=== PATIENT | male | born 1960 | race Caucasian/White ===

== ENCOUNTER 2017-05-17 01:23 | Emergency (ER) | payer OTHER ==
[~2017-05-17] VITALS: Ht 195.6 cm; Wt 99.3 kg
[2017-05-17] MEDS ORDERED: IBUPROFEN 600 MG TABLET. PO ONE (01:45)
[2017-05-17] MEDS ORDERED: DIPHTH,PERTUSS(ACELL),TET TOX 0.5 ML DISP.SYRIN. VAX IM ONE (01:45)
[2017-05-17] MEDS ORDERED: HYDROcodone/APAP 5/325MG 1 TAB TABLET PO ONE (01:45)
[2017-05-17] MEDS ORDERED: NEOMY/BACITR/POLYMYXIN OINT PACKET. TP ONE (02:30)
[2017-05-17] MEDS ORDERED: IBUP-1007 PO (02:30)
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
[2017-05-17 02:40] VITALS: BP 169/91
--- NOTE | 2017-05-17 07:32 | RAD ---
Indication injury, pain. AP and lateral views of the right forearm were obtained. No bony abnormality is seen
--- NOTE | 2017-05-17 07:36 | RAD ---
Indication injury, pain. Frontal and lateral views of the chest were obtained. Note is made of a previous examination of the chest 06/14/2014. The heart and pulmonary vessels are within normal limits. A focal infiltrate is not seen. Significant pleural fluid is not present and there is no pneumothorax. Calcified granulomas are noted. Visualized bony structures appear grossly intact. IMPRESSION: No acute or focal process is seen in the chest
--- NOTE | 2017-05-17 07:42 | RAD ---
Indication injury, pain. AP oblique and lateral views were obtained targeted to the right toes. There are degenerative changes at the first metatarsal phalangeal joint. No acute bony finding is seen involving the toes
--- NOTE | 2017-05-17 07:42 | RAD ---
Indication injury, pain. 2 views of the left clavicle were obtained. No bony abnormality is seen
== END 2017-05-17 02:40 | disposition home or self-care (01) ==
LOC: ER 01:23 → EEVIPCON 01:23 → ER 02:40
DX: S91.111A Laceration without foreign body of right great toe without damage to nail, initial encounter (principal); S50.11XA Contusion of right forearm, initial encounter; S41.032A Puncture wound without foreign body of left shoulder, initial encounter; S20.319A Abrasion of unspecified front wall of thorax, initial encounter; S30.811A Abrasion of abdominal wall, initial encounter; Y04.0XXA Assault by unarmed brawl or fight, initial encounter; Y93.89 Activity, other specified; Y92.89 Other specified places as the place of occurrence of the external cause; Y99.8 Other external cause status
CPT/HCPCS: 71020; 73000; 73090; 73660; 90471; 90715; 99284-25

== ENCOUNTER 2019-01-31 19:39 | Inpatient (IN) | payer OTHER, SELFPAY ==
[~2019-01-31] VITALS: Ht 195.6 cm; Wt 107.5 kg
[~2019-01-31 19:39] MED LIST: IBUP-1007 PO
[2019-01-31] MEDS ORDERED: IV NORMAL SALINE 1000ML BAG 1,000 ML IV SCH (20:12)
[2019-01-31 20:33] LABS: BILIRUBIN,URINE SMALL (NEG); CLARITY,URINE CLEAR; COLOR,URINE AMBER; NITRITE,URINE NEGATIVE (NEG); PROTEIN,URINE 100 mg/dL (NEG-TRACE)
[2019-01-31 20:39] LABS: GRANULAR CASTS,URINE OCCASIONAL /HPF; HYALINE CASTS, URINE FEW /HPF
[2019-01-31 20:40] LABS: AMPHETAMINE/METHAMPHETAMINE POS (NEG); BACTERIA,URINE 0 /HPF (0-FEW); BARBITURATES NEG (NEG); BENZODIAZEPINES NEG (NEG); CANNABINOIDS NEG (NEG); COCAINE NEG (NEG); METHADONE NEG (NEG); OPIATES NEG (NEG); PHENCYCLIDINE NEG (NEG)
[2019-01-31 20:43] LABS: BASO # 0.1 x10^3/uL (0.0-0.2); BASO % 1 % (0-3); EOS # 0.1 x10^3/uL (0.0-0.7); EOS % 1 % (0-3); HEMOGLOBIN 13.5 g/dL (13.0-17.5); LYMPH # 1.2 x10^3/uL (1.0-4.8); LYMPH % 8 % (24-48); MEAN CORPUSCULAR HEMOGLOBIN 28 pg (25-35); MEAN CORPUSCULAR HGB CONC 33 g/dL (31-37); MEAN CORPUSCULAR VOLUME 84 fL (79-100); MONO # 1.5 x10^3/uL (0.0-1.1); MONO % 10 % (0-9); NEUT # 12.2 x10^3uL (1.8-7.7); NEUT % 81 % (31-73); PLATELET COUNT 245 x10^3/uL (140-400); RED BLOOD COUNT 4.87 x10^6/uL (4.30-5.70); RED CELL DISTRIBUTION WIDTH 14.2 % (11.5-14.5); WHITE BLOOD COUNT 15.1 x10^3/uL (4.0-11.0)
[2019-01-31] MEDS ORDERED: ONDANSETRON PF 4 MG/2 ML VIAL. IV ONE (20:45)
[2019-01-31] MEDS ORDERED: fentaNYL PF VIAL 100 MCG/2 ML VIAL IV ONE (20:45)
[2019-01-31 21:15] LABS: CALCIUM 8.9 mg/dL (8.5-10.1); GFR 77.3; POTASSIUM 3.9 mmol/L (3.5-5.1)
[2019-01-31 21:20] LABS: ALBUMIN 2.8 g/dL (3.4-5.0); ALBUMIN/GLOBULIN RATIO 0.6 (1.0-1.7); TOTAL BILIRUBIN 1.5 mg/dL (0.2-1.0); TOTAL PROTEIN 7.3 g/dL (6.4-8.2)
--- NOTE | 2019-01-31 22:17 | RAD ---
Abdominal and Pelvis CT, Without Contrast: History: 5 days of abdominal pain and history of abdominal surgery Comparison: June 15, 2014. Procedure: Axial images are obtained of the abdomen and pelvis, without IV or oral contrast. CT Abdomen without Contrast: Findings: Evaluation of solid organs is limited without contrast. Evaluation of stomach and bowel is limited without oral contrast. Liver: Normal. Spleen: Normal. Pancreas: Normal. Adrenal Glands: Normal. Kidneys: There is mild left hydronephrosis and left hydroureter. There is no free air or free fluid. There is no lymphadenopathy. Impression: Please see CT Pelvis without Contrast. End Impression. CT Pelvis without Contrast: Findings: There appears to been prior appendectomy. There is an air-fluid level in the left hemipelvis that measures 5.1 x 3.4 cm and contains considerable surrounding inflammation. There is mild wall thickening of the proximal sigmoid colon. The urinary bladder appears normal. There is no free fluid. There is no lymphadenopathy. Impression: 1. Abscess in the left hemipelvis. 2. There is mild wall thickening of the proximal sigmoid colon which could be due to proximity of the abscess however it is possible that the abscess originating from a walled off perforated diverticulitis. 3. Mild left hydroureter and left hydronephrosis secondary to the abscess in the left hemipelvis. End impression PQRS Compliance Statement: One or more of the following individualized dose reduction techniques were utilized for this examination: 1. Automated exposure control 2. Adjustment of the mA and/or kV according to patient size 3. Use of iterative reconstruction technique Electronically signed by: Torsten Hahn III, MD (01/31/2019 10:14 PM) [facility]
[2019-01-31] MEDS ORDERED: VANCOMYCIN 1GM IVPB FOR OMNI 250 ML IV ONE (22:45)
[2019-01-31] MEDS ORDERED: ONDANSETRON PF 4 MG/2 ML VIAL. IV PRN (22:45)
[2019-01-31] MEDS ORDERED: VANCOMYCIN 2 GM in IV NORMAL SALINE 500ML BAG 500 ML IV ONE (23:00)
[2019-01-31] MEDS ORDERED: IV NORMAL SALINE 1000ML BAG 1,000 ML IV ONE (23:00)
[2019-01-31] MEDS ORDERED: PIPERACILLIN/TAZOBACTAM 3.375 GM in IV NORMAL SALINE 50ML 50 ML IV ONE (23:00)
[2019-01-31] MEDS ORDERED: MORPHINE SULFATE 4 MG/ML VIAL. IV ONE (23:00)
--- NOTE | 2019-01-31 23:11 | PHYS DOC ---
Past Medical History Past Medical History: No Pertinent History Past Surgical History: Appendectomy, Tonsillectomy Smoking: Cigarettes Alcohol Use: None Drug Use: None Adult General Chief Complaint Chief Complaint: ABDOMINAL PAIN HPI HPI Patient is a 58 year old male who presents with complaining of abdominal pain. Patient complaining of gradual onset of suprapubic and left lower quadrant pain for the last 5 days as a constant sharp pain and rated his pain 10 over 10. Patient states he did not have any bowel movement like his usual of abdomen. Patient states he took laxative and had a small amount of bowel movement yesterday. Patient states he had frequent flatus. Patient complaining of a norexia and subjective fever with decrease of urine output without nausea and vomiting, dysuria or frequency, history of the same abdominal pain, using drugs or alcohol. Patient denies any medical problem that does not have a primary care physician for a long time. Review of Systems Review of Systems Constitutional: Reports subjective fever Eyes: Denies change in visual acuity, redness, or eye pain [] HENT: Denies nasal congestion or sore throat [] Respiratory: Denies cough or shortness of breath [] Cardiovascular: No additional information not addressed in HPI [] GI: Reports abdominal pain, nausea, constipation, denies vomiting, bloody stools or diarrhea [] : Denies dysuria or hematuria [] Musculoskeletal: Denies back pain or joint pain [] Integument: Denies rash or skin lesions [] Neurologic: Denies headache, focal weakness or sensory changes [] Endocrine: Denies polyuria or polydipsia [] All other systems were reviewed and found to be within normal limits, except as documented in this note. Current Medications Current Medications Current Medications Medications (Trade) Dose Ordered Sig/Juwan Start Time Stop Time Status Last Admin Dose Admin Fentanyl Citrate (Fentanyl 2ml Vial) 50 mcg 1X ONCE 01/31/19 20:45 01/31/19 20:46 DC 01/31/19 20:49 50 MCG Metronidazole 100 ml @ 100 mls/hr 1X ONCE 01/31/19 23:00 01/31/19 23:59 Morphine Sulfate (Morphine Sulfate) 4 mg PRN Q4HRS PRN 01/31/19 22:45 Ondansetron HCl (Zofran) 4 mg PRN Q8HRS PRN 01/31/19 22:45 02/01/19 22:44 Piperacillin Sod/ Tazobactam Sod 3.375 gm/Sodium Chloride 50 ml @ 100 mls/hr Q6HRS 02/01/19 06:00 02/01/19 06:01 Sodium Chloride 1,000 ml @ 1,000 mls/hr 1X ONCE 01/31/19 23:00 01/31/19 23:59 Vancomycin HCl (Vanco Per Pharmacy) 1 each PRN DAILY PRN 01/31/19 22:45 Vancomycin HCl 2 gm/Sodium Chloride 500 ml @ 250 mls/hr 1X ONCE 01/31/19 23:00 02/01/19 00:59 Allergies Allergies Allergies Coded Allergies Type Severity Reaction Last Updated Verified No Known Drug Allergies 06/14/14 No Physical Exam Physical Exam Constitutional: Well developed, well nourished, moderate distress, non-toxic appearance, temperature of 99.2. [] HENT: Normocephalic, atraumatic, oropharynx dry, no oral exudates, nose normal. [] Eyes: PERRLA, EOMI, conjunctiva normal, no discharge. [] Neck: Normal range of motion, no tenderness, supple, no stridor. [] Cardiovascular: Tachycardia, no murmur [] Lungs & Thorax: Bilateral breath sounds clear to auscultation [] Abdomen: Bowel sounds l, soft, weak and left lower quadrant guarding and tenderness with rebound tenderness, no masses, no pulsatile masses. [] Skin: Warm, dry, no erythema, no rash. [] Back: No tenderness, no CVA tenderness. [] Extremities: No tenderness, no cyanosis, no clubbing, ROM intact, no edema. [] Neurologic: Alert and oriented X 3, normal motor function, normal sensory function, no focal deficits noted. [] Psychologic: Affect anxious, judgement normal, mood normal. [] Current Patient Data Vital Signs Vital Signs Date Time Temp Pulse Resp B/P (MAP) Pulse Ox O2 Delivery O2 Flow Rate FiO2 01/31/19 20:49 19 98 Room Air 01/31/19 19:58 98.0 90 199/99 (132) 98.0 Lab Values Laboratory Tests Test 01/31/19 20:26 01/31/19 20:31 01/31/19 21:07 Urine Collection Type Unknown Urine Color Consuelo Urine Clarity Clear Urine pH 6.0 Urine Specific [place] >=1.030 Urine Protein 100 mg/dL (NEG-TRACE) Urine Glucose (UA) Negative mg/dL (NEG) Urine Ketones (Stick) Trace mg/dL (NEG) Urine Blood Negative (NEG) Urine Nitrite Negative (NEG) Urine Bilirubin Small (NEG) Urine Urobilinogen Dipstick 1.0 mg/dL (0.2 mg/dL) Urine Leukocyte Esterase Trace (NEG) Urine RBC 6-10 /HPF (0-2) Urine WBC 1-4 /HPF (0-4) Urine Transitional Epithelial Cells Few /LPF Urine Bacteria 0 /HPF (0-FEW) Urine Hyaline Casts Few /HPF Urine Granular Casts Occasional /HPF Urine Mucus Marked /LPF Urine Opiates Screen Neg (NEG) Urine Methadone Screen Neg (NEG) Urine Barbiturates Neg (NEG) Urine Phencyclidine Screen Neg (NEG) Urine Amphetamine/Methamphetamine Pos (NEG) Urine Benzodiazepines Screen Neg (NEG) Urine Cocaine Screen Neg (NEG) Urine Cannabinoids Screen Neg (NEG) Urine Ethyl Alcohol Neg (NEG) White Blood Count 15.1 x10^3/uL (4.0-11.0) H Red Blood Count 4.87 x10^6/uL (4.30-5.70) Hemoglobin 13.5 g/dL (13.0-17.5) Hematocrit 41.0 % (39.0-53.0) Mean Corpuscular Volume 84 fL (79-100) Mean Corpuscular Hemoglobin 28 pg (25-35) Mean Corpuscular Hemoglobin Concent 33 g/dL (31-37) Red Cell Distribution Width 14.2 % (11.5-14.5) Platelet Count 245 x10^3/uL (140-400) Neutrophils (%) (Auto) 81 % (31-73) H Lymphocytes (%) (Auto) 8 % (24-48) L Monocytes (%) (Auto) 10 % (0-9) H Eosinophils (%) (Auto) 1 % (0-3) Basophils (%) (Auto) 1 % (0-3) Neutrophils # (Auto) 12.2 x10^3uL (1.8-7.7) H Lymphocytes # (Auto) 1.2 x10^3/uL (1.0-4.8) Monocytes # (Auto) 1.5 x10^3/uL (0.0-1.1) H Eosinophils # (Auto) 0.1 x10^3/uL (0.0-0.7) Basophils # (Auto) 0.1 x10^3/uL (0.0-0.2) Sodium Level 133 mmol/L (136-145) L Potassium Level 3.9 mmol/L (3.5-5.1) Chloride Level 99 mmol/L (98-107) Carbon Dioxide Level 24 mmol/L (21-32) Anion Gap 10 (6-14) Blood Urea Nitrogen 14 mg/dL (8-26) Creatinine 1.0 mg/dL (0.7-1.3) Estimated GFR (Cockcroft-Gault) 77.3 BUN/Creatinine Ratio 14 (6-20) Glucose Level 105 mg/dL (70-99) H Lactic Acid Level 1.4 mmol/L (0.4-2.0) Calcium Level 8.9 mg/dL (8.5-10.1) Total Bilirubin 1.5 mg/dL (0.2-1.0) H Aspartate Amino Transferase (AST) 25 U/L (15-37) Alanine Aminotransferase (ALT) 29 U/L (16-63) Alkaline Phosphatase 144 U/L (46-116) H Total Protein 7.3 g/dL (6.4-8.2) Albumin 2.8 g/dL (3.4-5.0) L Albumin/Globulin Ratio 0.6 (1.0-1.7) L Lipase 127 U/L (73-393) Ethyl Alcohol Level < 10 mg/dL (0-10) Laboratory Tests 01/31/19 20:31 Laboratory Tests 01/31/19 20:31 EKG EKG [] Radiology/Procedures Radiology/Procedures [facility] [address] [place], [place] [id number] IMAGING REPORT Signed PATIENT: ALECIA HOFFMAN ACCOUNT: [id number] : 1960 LOCATION: ER AGE: 58 SEX: M EXAM STATUS: REG ER ORD. PHYSICIAN: BEE RUFF MD REASON: abdominal pain for 5 days history of abdominal surgery PROCEDURE: CT ABDOMEN PELVIS WO CONTRAST Abdominal and Pelvis CT, Without Contrast: History: 5 days of abdominal pain and history of abdominal surgery Comparison: June 15, 2014. Procedure: Axial images are obtained of the abdomen and pelvis, without IV or oral contrast. CT Abdomen without Contrast: Findings: Evaluation of solid organs is limited without contrast. Evaluation of stomach and bowel is limited without oral contrast. Liver: Normal. Spleen: Normal. Pancreas: Normal. Adrenal Glands: Normal. Kidneys: There is mild left hydronephrosis and left hydroureter. There is no free air or free fluid. There is no lymphadenopathy. Impression: Please see CT Pelvis without Contrast. End Impression. CT Pelvis without Contrast: Findings: There appears to been prior appendectomy. There is an air-fluid level in the left hemipelvis that measures 5.1 x 3.4 cm and contains considerable surrounding inflammation. There is mild wall thickening of the proximal sigmoid colon. The urinary bladder appears normal. There is no free fluid. There is no lymphadenopathy. Impression: 1. Abscess in the left hemipelvis. 2. There is mild wall thickening of the proximal sigmoid colon which could be due to proximity of the abscess however it is possible that the abscess originating from a walled off perforated diverticulitis. 3. Mild left hydroureter and left hydronephrosis secondary to the abscess in the left hemipelvis. End impression PQRS Compliance Statement: One or more of the following individualized dose reduction techniques were utilized for this examination: 1. Automated exposure control 2. Adjustment of the mA and/or kV according to patient size 3. Use of iterative reconstruction technique Electronically signed by: Dagoberto Herman III, MD (01/31/2019 10:14 PM) [facility] DICTATED and SIGNED BY: DAGOBERTO HERMAN III, MD DATE: 01/31/192213 Course & Med Decision Making Course & Med Decision Making Pertinent Labs and Imaging studies reviewed. (See chart for details) Evaluation of patient in ER showed 58-year-old male patient with complaining of lower abdominal pain for several days. Patient had guarding and rebound of suprapubic and left lower quadrant with tachycardia and low-grade temperature. Patient had leukocytosis without elevation of lactic acid. CT showed left ear. This abscess. Patient treated with IV fluid and an antibiotic. Dr. Soriano was informed at 2140 and accepted admission. Plan to consult the on-call surgeon. Alma Disclajennifer Marquez Disclaimer This electronic medical record was generated, in whole or in part, using a voice recognition dictation system. Departure Departure Impression: Primary Impression: Abscess of pelvis Additional Impressions: Elevated blood pressure reading without diagnosis of hypertension SIRS (systemic inflammatory response syndrome) Methamphetamine abuse Disposition: ADMITTED INPATIENT Admitting Physician: Jewels Soriano Condition: GUARDED Referrals: NO PCP (PCP) Critical Care Time Critical care time was 70 minutes exclusive of procedures. Problem Qualifiers BEE RUFF MD Jan 31, 2019 23:10
[2019-02-01] VITALS (7 sets, daily range): BP systolic 141–186; BP diastolic 77–109
[2019-02-01] MEDS: MORPHINE SULFATE 2 MG/ML VIAL. IV PRN ×5 (01:36→19:50)
[2019-02-01] MEDS: VANCOMYCIN PER PHARMACY MC PRN ×2 (02:06→13:44)
--- NOTE | 2019-02-01 02:06 | NUR ---
Pharmacy Vancomycin Dosing Note S:Consulted to monitor and dose vancomycin started 02/01/19. O:ALECIA HOFFMAN is a 58 year old M with Abscess . Height: 6 feet, 5 inches Weight: 99.595415 kg [place] Body Weight: 89.10 Adjusted Body Weight: 93.46 Dosing Weight: Actual Other Antibiotics: METRONIDAZOLE 500 Q8H ZOSYN 3.375 GM Q6H LABS: Last BUN: 14 Last Creatinine: 1 Creatinine Clearance: 109 mL/min Last WBC: 15.1 Last Procalcitonin: Tmax (past 24 hours): Microbiology: I/O: Drug Levels: Last level: on at Last dose given 02/01/19 at 0100 Vancomycin Dosing: Loading Dose: 2000 mg x1 Dosing Weight: Actual Target Trough: 10-20 A: Based on: WT AND CRCL P: 1. Begin Vancomycin 1500 mg IV q8h 2. Follow up Trough level on 02/02/19 at 0030 3. Pharmacy will continue to monitor, follow and adjust therapy as needed. SURJIT BOSS RPH, 02/01/19205 Signed: 02/01/19 at 0206 by SURJIT BOSS RPH PHA
[2019-02-01] MEDS ORDERED: PIPERACILLIN/TAZOBACTAM 3.375 GM in IV NORMAL SALINE 50ML 50 ML IV SCH (06:00)
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
[2019-02-01] MEDS ORDERED: VANCOMYCIN 1.5 GM in IV NORMAL SALINE 500ML BAG 500 ML IV SCH (09:00)
--- NOTE | 2019-02-01 10:57 | PDOC1 ---
History and Physical Date of Admission Date of Admission DATE: 02/01/19 TIME: 10:57 Identification/Chief Complaint Chief Complaint SEEN IN ER , Complaining of gradual onset of suprapubic and left lower quadrant pain for the last 5 days as a constant sharp pain and rated his pain 10 over 10. Patient states he did not have any bowel movement like his usual of abdomen. Patient states he took laxative and had a small amount of bowel movement yesterday. Patient states he had frequent flatus. complaining of anorexia and subjective fever , PAIN with decrease of urine output without nausea and vomiting, dysuria or frequency, history of the same abdominal pain, using drugs or alcohol. Patient denies any medical problem that does not have a primary care physician for a long time. CT C/W PELVIC ABSCESS, LG Past Medical History Past Medical History Past Medical History Past Medical History Past Medical History: No Pertinent History Past Surgical History: Appendectomy, Tonsillectomy Smoking: Cigarettes Alcohol Use: None Drug Use: None Cardiovascular: No pertinent hx Pulmonary: No pertinent hx Psych: Addictions Musculoskeletal: Osteoarthritis Rheumatologic: No pertinent hx ENT: No pertinent hx Past Surgical History Past Surgical History: Other Family History Family History: Alcohol Abuse Family History: Parent Social History Smoke: <1 pack per day ALCOHOL: social Drugs: Crystal meth Current Problem List Problem List Problems Medical Problems: (1) Abscess of pelvis Status: Acute (2) Elevated blood pressure reading without diagnosis of hypertension Status: Acute (3) Methamphetamine abuse Status: Acute (4) SIRS (systemic inflammatory response syndrome) Status: Acute Current Medications Current Medications Current Medications Sodium Chloride 1,000 ml @ 1,000 mls/hr Q1H IV Last administered on 01/31/19at 20:42; Start 01/31/19 at 20:12; Stop 01/31/19 at 21:11; Status DC Fentanyl Citrate (Fentanyl 2ml Vial) 50 mcg 1X ONCE IV Last administered on 01/31/19at 20:49; Start 01/31/19 at 20:45; Stop 01/31/19 at 20:46; Status DC Ondansetron HCl (Zofran) 4 mg 1X ONCE IV Last administered on 01/31/19at 20:49; Start 01/31/19 at 20:45; Stop 01/31/19 at 20:46; Status DC Morphine Sulfate (Morphine Sulfate) 4 mg 1X ONCE IV Last administered on 01/31/19at 23:01; Start 01/31/19 at 23:00; Stop 01/31/19 at 23:01; Status DC Piperacillin Sod/ Tazobactam Sod 3.375 gm/Sodium Chloride 50 ml @ 100 mls/hr 1X ONCE IV Last administered on 01/31/19at 23:52; Start 01/31/19 at 23:00; Stop at 23:29; Status DC Metronidazole 100 ml @ 100 mls/hr Q8HRS IV Last administered on 02/01/19at 05:54; Start 02/01/19 at 06:00 Metronidazole 100 ml @ 100 mls/hr 1X ONCE IV Last administered on 01/31/19at 23:03; Start 01/31/19 at 23:00; Stop 01/31/19 at 23:59; Status DC Vancomycin HCl 250 ml @ 250 mls/hr 1X ONCE IV ; Start 01/31/19 at 22:45; Stop 01/31/19 at 23:44; Status UNV Sodium Chloride 1,000 ml @ 1,000 mls/hr 1X ONCE IV Last administered on 01/31/19at 23:02; Start 01/31/19 at 23:00; Stop 01/31/19 at 23:59; Status DC Vancomycin HCl (Vanco Per Pharmacy) 1 each PRN DAILY PRN MC SEE COMMENTS Last administered on 02/01/19at 02:06; Start 01/31/19 at 22:45 Vancomycin HCl 2 gm/Sodium Chloride 500 ml @ 250 mls/hr 1X ONCE IV Last administered on 02/01/19at 00:23; Start 01/31/19 at 23:00; Stop 02/01/19 at 00:59; Status DC Ondansetron HCl (Zofran) 4 mg PRN Q8HRS PRN IV NAUSEA/VOMITING 1ST CHOICE Last administered on 01/31/19at 23:01; Start 01/31/19 at 22:45; Stop 02/01/19 at 22:44 Morphine Sulfate (Morphine Sulfate) 4 mg PRN Q4HRS PRN IV SEVERE PAIN Last administered on 02/01/19at 10:01; Start 01/31/19 at 22:45 Piperacillin Sod/ Tazobactam Sod 3.375 gm/Sodium Chloride 50 ml @ 100 mls/hr Q6HRS IV Last administered on 02/01/19at 05:55; Start 02/01/19 at 06:00; Stop 02/01/19 at 06:02; Status DC Vancomycin HCl 1.5 gm/Sodium Chloride 500 ml @ 250 mls/hr Q8H IV Last administ ered on 02/01/19at 08:31; Start 02/01/19 at 09:00 Vancomycin HCl (Vancomycin Trough Level) 1 each 1X ONCE MC ; Start 02/02/19 at 00:30; Stop 02/02/19 at 00:31 Active Scripts Active Ibuprofen 600 Mg Tablet 600 Mg PO PRN Q6HRS PRN Allergies Allergies: Coded Allergies: No Known Drug Allergies (Unverified , 06/14/14) ROS Review of System Review of Systems Review of Systems Constitutional: Reports subjective fever Eyes: Denies change in visual acuity, redness, or eye pain [] HENT: Denies nasal congestion or sore throat [] Respiratory: Denies cough or shortness of breath [] Cardiovascular: No additional information not addressed in HPI [] GI: Reports abdominal pain, nausea, constipation, denies vomiting, bloody stools or diarrhea [] : Denies dysuria or hematuria [] Musculoskeletal: Denies back pain or joint pain [] Integument: Denies rash or skin lesions [] Neurologic: Denies headache, focal weakness or sensory changes [] Endocrine: Denies polyuria or polydipsia [] 14 PT systems were reviewed and found to be within normal limits, except as documented . General: YES: Chills, Fatigue PSYCHOLOGICAL ROS: No: Anxiety, Behavioral Disorder, Concentration difficultie, Decreased libido, Depression, Disorientation, Hallucinations, Hostility, Irritablity, Memory difficulties, Mood Swings, Obsessive thoughts, Physical abuse, Sexual abuse, Sleep disturbances, Suicidal ideation, Other ALLERGY AND IMMUNOLOGY: No: Hives, Insect Bite Sensitivity, Itchy/Watery Eyes, Nasal Congestion, Post Nasal Drip, Seasonal Allergies, Other Hematological and Lymphatic: No: Bleeding Problems, Blood Clots, Blood Transfusions, Brusing, Night Sweats, Pallor, Swollen Lymph Nodes, Other Cardiovascular: No Chest Pain, No Palpitations, No Orthopnea, No Paroxysmal Noc. Dyspnea, No Edema, No Lt Headedness, No Other Gastrointestinal: Yes Abdominal Pain Skin: Yes Dry Skin Physical Exam Physical Exam Physical Exam Physical Exam Constitutional: Well developed, well nourished, moderate distress, non-toxic appearance, HENT: Normocephalic, atraumatic, oropharynx dry, no oral exudates, nose normal. [] Eyes: PERRLA, EOMI, conjunctiva normal, no discharge. [] Neck: Normal range of motion, no tenderness, supple, no stridor. [] Cardiovascular: Tachycardia, no murmur [] Lungs & Thorax: Bilateral breath sounds clear to auscultation [] Abdomen: Bowel sounds , weak and left lower quadrant guarding and tenderness with rebound tenderness, no masses, no pulsatile masses. [] Skin: Warm, dry, no erythema, no rash. [] Back: No tenderness, no CVA tenderness. [] Extremities: No tenderness, no cyanosis, no clubbing, ROM intact, no edema. [] Neurologic: Alert and oriented X 3, normal motor function, normal sensory function, no focal deficits noted. [] Psychologic: Affect anxious, judgement normal, mood normal. [] General: Oriented X3, Cooperative, moderate distress HEENT: EOMI, Mucous membr. moist/pink Lungs: Clear to auscultation, Normal air movement Heart: S1S2, RRR, no thrills, no rubs Cardiovascular: S1 Breasts: Not examined Rectal Exam: not examined PELVIC: Examination not indicated Extremities: No cyanosis Neuro: Normal speech, Cranial nerves 3-12 NL Psych/Mental Status: Mental status NL, Mood NL Vitals Vitals Vital Signs Date Time Temp Pulse Resp B/P (MAP) Pulse Ox O2 Delivery O2 Flow Rate FiO2 02/01/19 10:01 93 Room Air 99.0 02/01/19 07:20 99.7 113 20 161/93 (115) 99.7 Labs Labs Laboratory Tests Test 01/31/19 20:26 01/31/19 20:31 01/31/19 21:07 Urine Collection Type Unknown Urine Color Consuelo Urine Clarity Clear Urine pH 6.0 Urine Specific Philip >=1.030 Urine Protein 100 mg/dL (NEG-TRACE) Urine Glucose (UA) Negative mg/dL (NEG) Urine Ketones (Stick) Trace mg/dL (NEG) Urine Blood Negative (NEG) Urine Nitrite Negative (NEG) Urine Bilirubin Small (NEG) Urine Urobilinogen Dipstick 1.0 mg/dL (0.2 mg/dL) Urine Leukocyte Esterase Trace (NEG) Urine RBC 6-10 /HPF (0-2) Urine WBC 1-4 /HPF (0-4) Urine Transitional Epithelial Cells Few /LPF Urine Bacteria 0 /HPF (0-FEW) Urine Hyaline Casts Few /HPF Urine Granular Casts Occasional /HPF Urine Mucus Marked /LPF Urine Opiates Screen Neg (NEG) Urine Methadone Screen Neg (NEG) Urine Barbiturates Neg (NEG) Urine Phencyclidine Screen Neg (NEG) Urine Amphetamine/Methamphetamine Pos (NEG) Urine Benzodiazepines Screen Neg (NEG) Urine Cocaine Screen Neg (NEG) Urine Cannabinoids Screen Neg (NEG) Urine Ethyl Alcohol Neg (NEG) White Blood Count 15.1 x10^3/uL (4.0-11.0) Red Blood Count 4.87 x10^6/uL (4.30-5.70) Hemoglobin 13.5 g/dL (13.0-17.5) Hematocrit 41.0 % (39.0-53.0) Mean Corpuscular Volume 84 fL (79-100) Mean Corpuscular Hemoglobin 28 pg (25-35) Mean Corpuscular Hemoglobin Concent 33 g/dL (31-37) Red Cell Distribution Width 14.2 % (11.5-14.5) Platelet Count 245 x10^3/uL (140-400) Neutrophils (%) (Auto) 81 % (31-73) Lymphocytes (%) (Auto) 8 % (24-48) Monocytes (%) (Auto) 10 % (0-9) Eosinophils (%) (Auto) 1 % (0-3) Basophils (%) (Auto) 1 % (0-3) Neutrophils # (Auto) 12.2 x10^3uL (1.8-7.7) Lymphocytes # (Auto) 1.2 x10^3/uL (1.0-4.8) Monocytes # (Auto) 1.5 x10^3/uL (0.0-1.1) Eosinophils # (Auto) 0.1 x10^3/uL (0.0-0.7) Basophils # (Auto) 0.1 x10^3/uL (0.0-0.2) Sodium Level 133 mmol/L (136-145) Potassium Level 3.9 mmol/L (3.5-5.1) Chloride Level 99 mmol/L (98-107) Carbon Dioxide Level 24 mmol/L (21-32) Anion Gap 10 (6-14) Blood Urea Nitrogen 14 mg/dL (8-26) Creatinine 1.0 mg/dL (0.7-1.3) Estimated GFR (Cockcroft-Gault) 77.3 BUN/Creatinine Ratio 14 (6-20) Glucose Level 105 mg/dL (70-99) Lactic Acid Level 1.4 mmol/L (0.4-2.0) Calcium Level 8.9 mg/dL (8.5-10.1) Total Bilirubin 1.5 mg/dL (0.2-1.0) Aspartate Amino Transf (AST/SGOT) 25 U/L (15-37) Alanine Aminotransferase (ALT/SGPT) 29 U/L (16-63) Alkaline Phosphatase 144 U/L (46-116) Total Protein 7.3 g/dL (6.4-8.2) Albumin 2.8 g/dL (3.4-5.0) Albumin/Globulin Ratio 0.6 (1.0-1.7) Lipase 127 U/L (73-393) Ethyl Alcohol Level < 10 mg/dL (0-10) Laboratory Tests Test 01/31/19 20:26 01/31/19 20:31 01/31/19 21:07 Urine Collection Type Unknown Urine Color Consuelo Urine Clarity Clear Urine pH 6.0 Urine Specific Philip >=1.030 Urine Protein 100 mg/dL (NEG-TRACE) Urine Glucose (UA) Negative mg/dL (NEG) Urine Ketones (Stick) Trace mg/dL (NEG) Urine Blood Negative (NEG) Urine Nitrite Negative (NEG) Urine Bilirubin Small (NEG) Urine Urobilinogen Dipstick 1.0 mg/dL (0.2 mg/dL) Urine Leukocyte Esterase Trace (NEG) Urine RBC 6-10 /HPF (0-2) Urine WBC 1-4 /HPF (0-4) Urine Transitional Epithelial Cells Few /LPF Urine Bacteria 0 /HPF (0-FEW) Urine Hyaline Casts Few /HPF Urine Granular Casts Occasional /HPF Urine Mucus Marked /LPF Urine Opiates Screen Neg (NEG) Urine Methadone Screen Neg (NEG) Urine Barbiturates Neg (NEG) Urine Phencyclidine Screen Neg (NEG) Urine Amphetamine/Methamphetamine Pos (NEG) Urine Benzodiazepines Screen Neg (NEG) Urine Cocaine Screen Neg (NEG) Urine Cannabinoids Screen Neg (NEG) Urine Ethyl Alcohol Neg (NEG) White Blood Count 15.1 x10^3/uL (4.0-11.0) Red Blood Count 4.87 x10^6/uL (4.30-5.70) Hemoglobin 13.5 g/dL (13.0-17.5) Hematocrit 41.0 % (39.0-53.0) Mean Corpuscular Volume 84 fL (79-100) Mean Corpuscular Hemoglobin 28 pg (25-35) Mean Corpuscular Hemoglobin Concent 33 g/dL (31-37) Red Cell Distribution Width 14.2 % (11.5-14.5) Platelet Count 245 x10^3/uL (140-400) Neutrophils (%) (Auto) 81 % (31-73) Lymphocytes (%) (Auto) 8 % (24-48) Monocytes (%) (Auto) 10 % (0-9) Eosinophils (%) (Auto) 1 % (0-3) Basophils (%) (Auto) 1 % (0-3) Neutrophils # (Auto) 12.2 x10^3uL (1.8-7.7) Lymphocytes # (Auto) 1.2 x10^3/uL (1.0-4.8) Monocytes # (Auto) 1.5 x10^3/uL (0.0-1.1) Eosinophils # (Auto) 0.1 x10^3/uL (0.0-0.7) Basophils # (Auto) 0.1 x10^3/uL (0.0-0.2) Sodium Level 133 mmol/L (136-145) Potassium Level 3.9 mmol/L (3.5-5.1) Chloride Level 99 mmol/L (98-107) Carbon Dioxide Level 24 mmol/L (21-32) Anion Gap 10 (6-14) Blood Urea Nitrogen 14 mg/dL (8-26) Creatinine 1.0 mg/dL (0.7-1.3) Estimated GFR (Cockcroft-Gault) 77.3 BUN/Creatinine Ratio 14 (6-20) Glucose Level 105 mg/dL (70-99) Lactic Acid Level 1.4 mmol/L (0.4-2.0) Calcium Level 8.9 mg/dL (8.5-10.1) Total Bilirubin 1.5 mg/dL (0.2-1.0) Aspartate Amino Transf (AST/SGOT) 25 U/L (15-37) Alanine Aminotransferase (ALT/SGPT) 29 U/L (16-63) Alkaline Phosphatase 144 U/L (46-116) Total Protein 7.3 g/dL (6.4-8.2) Albumin 2.8 g/dL (3.4-5.0) Albumin/Globulin Ratio 0.6 (1.0-1.7) Lipase 127 U/L (73-393) Ethyl Alcohol Level < 10 mg/dL (0-10) Images Images SEX: M EXAM STATUS: REG ER ORD. PHYSICIAN: BEE RUFF MD REASON: abdominal pain for 5 days history of abdominal surgery PROCEDURE: CT ABDOMEN PELVIS WO CONTRAST Abdominal and Pelvis CT, Without Contrast: History: 5 days of abdominal pain and history of abdominal surgery Comparison: June 15, 2014. Procedure: Axial images are obtained of the abdomen and pelvis, without IV or oral contrast. CT Abdomen without Contrast: Findings: Evaluation of solid organs is limited without contrast. Evaluation of stomach and bowel is limited without oral contrast. Liver: Normal. Spleen: Normal. Pancreas: Normal. Adrenal Glands: Normal. Kidneys: There is mild left hydronephrosis and left hydroureter. There is no free air or free fluid. There is no lymphadenopathy. Impression: Please see CT Pelvis without Contrast. End Impression. CT Pelvis without Contrast: Findings: There appears to been prior appendectomy. There is an air-fluid level in the left hemipelvis that measures 5.1 x 3.4 cm and contains considerable surrounding inflammation. There is mild wall thickening of the proximal sigmoid colon. The urinary bladder appears normal. There is no free fluid. There is no lymphadenopathy. Impression: 1. Abscess in the left hemipelvis. 2. There is mild wall thickening of the proximal sigmoid colon which could be due to proximity of the abscess however it is possible that the abscess originating from a walled off perforated diverticulitis. 3. Mild left hydroureter and left hydronephrosis secondary to the abscess in the left hemipelvis. End impression PQRS Compliance Statement: One or more of the following individualized dose reduction techniques were utilized for this examination: 1. Automated exposure control 2. Adjustment of the mA and/or kV according to patient size 3. Use of iterative reconstruction technique Electronically signed by: Dagoberto Herman III, MD (01/31/2019 10:14 PM) [facility] DICTATED and SIGNED BY: DAGOBERTO HERMAN III, MD DATE: 01/31/19 2443 VTE Prophylaxis Ordered VTE Prophylaxis Devices: Yes VTE Pharmacological Prophylaxi: Yes Assessment/Plan Assessment/Plan IMPRESSION There is an air-fluid level in the left hemipelvis that measures 5.1 x 3.4 cm and contains considerable surrounding inflammation. There is mild wall thickening of the proximal sigmoid colon. ? perforated diverticulitis Urine tox positive for meth. sepsis HX POLYSUBSTANCE ABUSE Plan IV Zosyn D/c IV vancomycin Awaiting gen surgery eval, Monitor WBC/temp D/w nursing NPO iv fluid support dvt prophylaxis gi prophylaxis ID CONSULT GEN SURG CONSULT 75 MIN PT EXAM, CHART REVIEW, > 50% OF TIME spent with exam, chart review, pt care coordination SUNDAR COBB MD Feb 01, 2019 10:57
--- NOTE | 2019-02-01 14:31 | PDOC ---
Infectious Disease Note Vital Sign Vital Signs Vital Signs Date Time Temp Pulse Resp B/P (MAP) Pulse Ox O2 Delivery O2 Flow Rate FiO2 02/01/19 11:10 98.8 108 20 156/92 (113) 95 Room Air 98.8 02/01/19 10:01 99.0 Labs Lab Laboratory Tests Test 01/31/19 20:26 01/31/19 20:31 01/31/19 21:07 Urine Collection Type Unknown Urine Color Consuelo Urine Clarity Clear Urine pH 6.0 Urine Specific Helton >=1.030 Urine Protein 100 mg/dL (NEG-TRACE) Urine Glucose (UA) Negative mg/dL (NEG) Urine Ketones (Stick) Trace mg/dL (NEG) Urine Blood Negative (NEG) Urine Nitrite Negative (NEG) Urine Bilirubin Small (NEG) Urine Urobilinogen Dipstick 1.0 mg/dL (0.2 mg/dL) Urine Leukocyte Esterase Trace (NEG) Urine RBC 6-10 /HPF (0-2) Urine WBC 1-4 /HPF (0-4) Urine Transitional Epithelial Cells Few /LPF Urine Bacteria 0 /HPF (0-FEW) Urine Hyaline Casts Few /HPF Urine Granular Casts Occasional /HPF Urine Mucus Marked /LPF Urine Opiates Screen Neg (NEG) Urine Methadone Screen Neg (NEG) Urine Barbiturates Neg (NEG) Urine Phencyclidine Screen Neg (NEG) Urine Amphetamine/Methamphetamine Pos (NEG) Urine Benzodiazepines Screen Neg (NEG) Urine Cocaine Screen Neg (NEG) Urine Cannabinoids Screen Neg (NEG) Urine Ethyl Alcohol Neg (NEG) White Blood Count 15.1 x10^3/uL (4.0-11.0) Red Blood Count 4.87 x10^6/uL (4.30-5.70) Hemoglobin 13.5 g/dL (13.0-17.5) Hematocrit 41.0 % (39.0-53.0) Mean Corpuscular Volume 84 fL (79-100) Mean Corpuscular Hemoglobin 28 pg (25-35) Mean Corpuscular Hemoglobin Concent 33 g/dL (31-37) Red Cell Distribution Width 14.2 % (11.5-14.5) Platelet Count 245 x10^3/uL (140-400) Neutrophils (%) (Auto) 81 % (31-73) Lymphocytes (%) (Auto) 8 % (24-48) Monocytes (%) (Auto) 10 % (0-9) Eosinophils (%) (Auto) 1 % (0-3) Basophils (%) (Auto) 1 % (0-3) Neutrophils # (Auto) 12.2 x10^3uL (1.8-7.7) Lymphocytes # (Auto) 1.2 x10^3/uL (1.0-4.8) Monocytes # (Auto) 1.5 x10^3/uL (0.0-1.1) Eosinophils # (Auto) 0.1 x10^3/uL (0.0-0.7) Basophils # (Auto) 0.1 x10^3/uL (0.0-0.2) Sodium Level 133 mmol/L (136-145) Potassium Level 3.9 mmol/L (3.5-5.1) Chloride Level 99 mmol/L (98-107) Carbon Dioxide Level 24 mmol/L (21-32) Anion Gap 10 (6-14) Blood Urea Nitrogen 14 mg/dL (8-26) Creatinine 1.0 mg/dL (0.7-1.3) Estimated GFR (Cockcroft-Gault) 77.3 BUN/Creatinine Ratio 14 (6-20) Glucose Level 105 mg/dL (70-99) Lactic Acid Level 1.4 mmol/L (0.4-2.0) Calcium Level 8.9 mg/dL (8.5-10.1) Total Bilirubin 1.5 mg/dL (0.2-1.0) Aspartate Amino Transf (AST/SGOT) 25 U/L (15-37) Alanine Aminotransferase (ALT/SGPT) 29 U/L (16-63) Alkaline Phosphatase 144 U/L (46-116) Total Protein 7.3 g/dL (6.4-8.2) Albumin 2.8 g/dL (3.4-5.0) Albumin/Globulin Ratio 0.6 (1.0-1.7) Lipase 127 U/L (73-393) Ethyl Alcohol Level < 10 mg/dL (0-10) There appears to been prior appendectomy. There is an air-fluid level in the left hemipelvis that measures 5.1 x 3.4 cm and contains considerable surrounding inflammation. There is mild wall thickening of the proximal sigmoid colon. Objective Assessment Sepsis Pelvic abscess measuring 5.1 x 3.4 cm and contains considerable surrounding inflammation. ? perforated diverticulitis Urine tox positive for meth. Patient denies drug use. Plan Plan of Care Continue Zosyn D/c vancomycin D/w Flagyl as Zosyn has good anaerobic coverage Awaiting gen surgery eval, Monitor WBC/temp D/w nursing Thank you Attending Co-Sign The patient was seen and interviewed as well as examined at the bedside. The chart was reviewed. The case was discussed. Agree with the plan of care. MESHA CRABTREE APRN Feb 01, 2019 14:31 ANDERSON BOLIVAR MD Feb 01, 2019 14:54
[2019-02-01] MEDS: PANTOPRAZOLE IV PUSH 40 MG VIAL. IVP SCH (16:55)
[2019-02-01] MEDS: ENOXAPARIN 40 MG/0.4 ML SYRINGE. SQ SCH (16:55)
--- NOTE | 2019-02-01 16:56 | PDOC2 ---
CONSULT Date of Consult Date of Consult DATE: 02/01/19 TIME: 16:52 Reason for Consult Reason for Consult: abd abscess Referring Physician Referring Physician: Bo Identification/Chief Complaint Chief Complaint thirst, abd pain Source Source: Chart review, Patient History of Present Illness Reason for Visit: 58 yo M with 5 day hx of abd pain, improved since admission with pain meds. No N/V. No previous colonoscopy. Pain similar to when he had appendicitis Past Medical History Cardiovascular: No pertinent hx Pulmonary: No pertinent hx Psych: Addictions Musculoskeletal: Osteoarthritis Rheumatologic: No pertinent hx ENT: No pertinent hx Past Surgical History Past Surgical History: Appendectomy, Other Family History Family History: Alcohol Abuse Social History Social History: Parent <1 pack per day ALCOHOL: social Drugs: Crystal meth Current Problem List Problem List Problems Medical Problems: (1) Abscess of pelvis Status: Acute (2) Elevated blood pressure reading without diagnosis of hypertension Status: Acute (3) Methamphetamine abuse Status: Acute (4) SIRS (systemic inflammatory response syndrome) Status: Acute Current Medications Current Medications Current Medications Sodium Chloride 1,000 ml @ 1,000 mls/hr Q1H IV Last administered on 01/31/19at 20:42; Start 01/31/19 at 20:12; Stop 01/31/19 at 21:11; Status DC Fentanyl Citrate (Fentanyl 2ml Vial) 50 mcg 1X ONCE IV Last administered on 01/31/19at 20:49; Start 01/31/19 at 20:45; Stop 01/31/19 at 20:46; Status DC Ondansetron HCl (Zofran) 4 mg 1X ONCE IV Last administered on 01/31/19at 20:49; Start 01/31/19 at 20:45; Stop 01/31/19 at 20:46; Status DC Morphine Sulfate (Morphine Sulfate) 4 mg 1X ONCE IV Last administered on 01/31/19at 23:01; Start 01/31/19 at 23:00; Stop 01/31/19 at 23:01; Status DC Piperacillin Sod/ Tazobactam Sod 3.375 gm/Sodium Chloride 50 ml @ 100 mls/hr 1X ONCE IV Last administered on 01/31/19at 23:52; Start 01/31/19 at 23:00; Stop 01/31/19 at 23:29; Status DC Metronidazole 100 ml @ 100 mls/hr Q8HRS IV Last administered on 02/01/19at 14:17; Start 02/01/19 at 06:00; Stop 02/01/19 at 14:27; Status DC Metronidazole 100 ml @ 100 mls/hr 1X ONCE IV Last administered on 01/31/19at 23:03; Start 01/31/19 at 23:00; Stop 01/31/19 at 23:59; Status DC Vancomycin HCl 250 ml @ 250 mls/hr 1X ONCE IV ; Start 01/31/19 at 22:45; Stop 01/31/19 at 23:44; Status UNV Sodium Chloride 1,000 ml @ 1,000 mls/hr 1X ONCE IV Last administered on 01/31/19at 23:02; Start 01/31/19 at 23:00; Stop 01/31/19 at 23:59; Status DC Vancomycin HCl (Vanco Per Pharmacy) 1 each PRN DAILY PRN MC SEE COMMENTS Last administered on 02/01/19at 13:44; Start 01/31/19 at 22:45; Stop 02/01/19 at 14:31; Status DC Vancomycin HCl 2 gm/Sodium Chloride 500 ml @ 250 mls/hr 1X ONCE IV Last administered on 02/01/19at 00:23; Start 01/31/19 at 23:00; Stop 02/01/19 at 00:59; Status DC Ondansetron HCl (Zofran) 4 mg PRN Q8HRS PRN IV NAUSEA/VOMITING 1ST CHOICE Last administered on 01/31/19at 23:01; Start 01/31/19 at 22:45; Stop 02/01/19 at 22:44 Morphine Sulfate (Morphine Sulfate) 4 mg PRN Q4HRS PRN IV SEVERE PAIN Last administered on 02/01/19at 14:18; Start 01/31/19 at 22:45; Stop 02/01/19 at 22:44 Piperacillin Sod/ Tazobactam Sod 3.375 gm/Sodium Chloride 50 ml @ 100 mls/hr Q6HRS IV Last administered on 02/01/19at 05:55; Start 02/01/19 at 06:00; Stop 02/01/19 at 06:02; Status DC Vancomycin HCl 1.5 gm/Sodium Chloride 500 ml @ 250 mls/hr Q8H IV Last administered on 02/01/19at 08:31; Start 02/01/19 at 09:00; Stop 02/01/19 at 14:31; Status DC Vancomycin HCl (Vancomycin Trough Level) 1 each 1X ONCE MC ; Start 02/02/19 at 00:30; Stop 02/02/19 at 00:30; Status DC Enoxaparin Sodium (Lovenox 40mg Syringe) 40 mg Q24H SQ ; Start 02/01/19 at 16:00 Pantoprazole Sodium (PROTONIX VIAL for IV PUSH) 40 mg DAILYAC IVP ; Start 02/01/19 at 15:00 Active Scripts Active Ibuprofen 600 Mg Tablet 600 Mg PO PRN Q6HRS PRN Allergies Allergies: Coded Allergies: No Known Drug Allergies (Unverified , 06/14/14) ROS Gastrointestinal: Yes Abdominal Pain Physical Exam General: Alert, Oriented X3, Cooperative, No acute distress HEENT: Atraumatic Lungs: Normal air movement Abdomen: Soft, No tenderness, Other (well healed midline incision with reducibl e umb hernia, ) Extremities: No clubbing, No cyanosis Skin: No rashes, No breakdown Neuro: Normal speech, Sensation intact Psych/Mental Status: Mental status NL, Mood NL Vitals VITALS Vital Signs Date Time Temp Pulse Resp B/P (MAP) Pulse Ox O2 Delivery O2 Flow Rate FiO2 02/01/19 15:10 100.1 109 20 168/98 (121) 94 Room Air 100.1 02/01/19 14:55 99.0 Labs Labs Laboratory Tests Test 01/31/19 20:26 01/31/19 20:31 01/31/19 21:07 Urine Collection Type Unknown Urine Color Consuelo Urine Clarity Clear Urine pH 6.0 Urine Specific [place] >=1.030 Urine Protein 100 mg/dL (NEG-TRACE) Urine Glucose (UA) Negative mg/dL (NEG) Urine Ketones (Stick) Trace mg/dL (NEG) Urine Blood Negative (NEG) Urine Nitrite Negative (NEG) Urine Bilirubin Small (NEG) Urine Urobilinogen Dipstick 1.0 mg/dL (0.2 mg/dL) Urine Leukocyte Esterase Trace (NEG) Urine RBC 6-10 /HPF (0-2) Urine WBC 1-4 /HPF (0-4) Urine Transitional Epithelial Cells Few /LPF Urine Bacteria 0 /HPF (0-FEW) Urine Hyaline Casts Few /HPF Urine Granular Casts Occasional /HPF Urine Mucus Marked /LPF Urine Opiates Screen Neg (NEG) Urine Methadone Screen Neg (NEG) Urine Barbiturates Neg (NEG) Urine Phencyclidine Screen Neg (NEG) Urine Amphetamine/Methamphetamine Pos (NEG) Urine Benzodiazepines Screen Neg (NEG) Urine Cocaine Screen Neg (NEG) Urine Cannabinoids Screen Neg (NEG) Urine Ethyl Alcohol Neg (NEG) White Blood Count 15.1 x10^3/uL (4.0-11.0) Red Blood Count 4.87 x10^6/uL (4.30-5.70) Hemoglobin 13.5 g/dL (13.0-17.5) Hematocrit 41.0 % (39.0-53.0) Mean Corpuscular Volume 84 fL (79-100) Mean Corpuscular Hemoglobin 28 pg (25-35) Mean Corpuscular Hemoglobin Concent 33 g/dL (31-37) Red Cell Distribution Width 14.2 % (11.5-14.5) Platelet Count 245 x10^3/uL (140-400) Neutrophils (%) (Auto) 81 % (31-73) Lymphocytes (%) (Auto) 8 % (24-48) Monocytes (%) (Auto) 10 % (0-9) Eosinophils (%) (Auto) 1 % (0-3) Basophils (%) (Auto) 1 % (0-3) Neutrophils # (Auto) 12.2 x10^3uL (1.8-7.7) Lymphocytes # (Auto) 1.2 x10^3/uL (1.0-4.8) Monocytes # (Auto) 1.5 x10^3/uL (0.0-1.1) Eosinophils # (Auto) 0.1 x10^3/uL (0.0-0.7) Basophils # (Auto) 0.1 x10^3/uL (0.0-0.2) Sodium Level 133 mmol/L (136-145) Potassium Level 3.9 mmol/L (3.5-5.1) Chloride Level 99 mmol/L (98-107) Carbon Dioxide Level 24 mmol/L (21-32) Anion Gap 10 (6-14) Blood Urea Nitrogen 14 mg/dL (8-26) Creatinine 1.0 mg/dL (0.7-1.3) Estimated GFR (Cockcroft-Gault) 77.3 BUN/Creatinine Ratio 14 (6-20) Glucose Level 105 mg/dL (70-99) Lactic Acid Level 1.4 mmol/L (0.4-2.0) Calcium Level 8.9 mg/dL (8.5-10.1) Total Bilirubin 1.5 mg/dL (0.2-1.0) Aspartate Amino Transf (AST/SGOT) 25 U/L (15-37) Alanine Aminotransferase (ALT/SGPT) 29 U/L (16-63) Alkaline Phosphatase 144 U/L (46-116) Total Protein 7.3 g/dL (6.4-8.2) Albumin 2.8 g/dL (3.4-5.0) Albumin/Globulin Ratio 0.6 (1.0-1.7) Lipase 127 U/L (73-393) Ethyl Alcohol Level < 10 mg/dL (0-10) Laboratory Tests Test 01/31/19 20:26 01/31/19 20:31 01/31/19 21:07 Urine Collection Type Unknown Urine Color Consuelo Urine Clarity Clear Urine pH 6.0 Urine Specific [place] >=1.030 Urine Protein 100 mg/dL (NEG-TRACE) Urine Glucose (UA) Negative mg/dL (NEG) Urine Ketones (Stick) Trace mg/dL (NEG) Urine Blood Negative (NEG) Urine Nitrite Negative (NEG) Urine Bilirubin Small (NEG) Urine Urobilinogen Dipstick 1.0 mg/dL (0.2 mg/dL) Urine Leukocyte Esterase Trace (NEG) Urine RBC 6-10 /HPF (0-2) Urine WBC 1-4 /HPF (0-4) Urine Transitional Epithelial Cells Few /LPF Urine Bacteria 0 /HPF (0-FEW) Urine Hyaline Casts Few /HPF Urine Granular Casts Occasional /HPF Urine Mucus Marked /LPF Urine Opiates Screen Neg (NEG) Urine Methadone Screen Neg (NEG) Urine Barbiturates Neg (NEG) Urine Phencyclidine Screen Neg (NEG) Urine Amphetamine/Methamphetamine Pos (NEG) Urine Benzodiazepines Screen Neg (NEG) Urine Cocaine Screen Neg (NEG) Urine Cannabinoids Screen Neg (NEG) Urine Ethyl Alcohol Neg (NEG) White Blood Count 15.1 x10^3/uL (4.0-11.0) Red Blood Count 4.87 x10^6/uL (4.30-5.70) Hemoglobin 13.5 g/dL (13.0-17.5) Hematocrit 41.0 % (39.0-53.0) Mean Corpuscular Volume 84 fL (79-100) Mean Corpuscular Hemoglobin 28 pg (25-35) Mean Corpuscular Hemoglobin Concent 33 g/dL (31-37) Red Cell Distribution Width 14.2 % (11.5-14.5) Platelet Count 245 x10^3/uL (140-400) Neutrophils (%) (Auto) 81 % (31-73) Lymphocytes (%) (Auto) 8 % (24-48) Monocytes (%) (Auto) 10 % (0-9) Eosinophils (%) (Auto) 1 % (0-3) Basophils (%) (Auto) 1 % (0-3) Neutrophils # (Auto) 12.2 x10^3uL (1.8-7.7) Lymphocytes # (Auto) 1.2 x10^3/uL (1.0-4.8) Monocytes # (Auto) 1.5 x10^3/uL (0.0-1.1) Eosinophils # (Auto) 0.1 x10^3/uL (0.0-0.7) Basophils # (Auto) 0.1 x10^3/uL (0.0-0.2) Sodium Level 133 mmol/L (136-145) Potassium Level 3.9 mmol/L (3.5-5.1) Chloride Level 99 mmol/L (98-107) Carbon Dioxide Level 24 mmol/L (21-32) Anion Gap 10 (6-14) Blood Urea Nitrogen 14 mg/dL (8-26) Creatinine 1.0 mg/dL (0.7-1.3) Estimated GFR (Cockcroft-Gault) 77.3 BUN/Creatinine Ratio 14 (6-20) Glucose Level 105 mg/dL (70-99) Lactic Acid Level 1.4 mmol/L (0.4-2.0) Calcium Level 8.9 mg/dL (8.5-10.1) Total Bilirubin 1.5 mg/dL (0.2-1.0) Aspartate Amino Transf (AST/SGOT) 25 U/L (15-37) Alanine Aminotransferase (ALT/SGPT) 29 U/L (16-63) Alkaline Phosphatase 144 U/L (46-116) Total Protein 7.3 g/dL (6.4-8.2) Albumin 2.8 g/dL (3.4-5.0) Albumin/Globulin Ratio 0.6 (1.0-1.7) Lipase 127 U/L (73-393) Ethyl Alcohol Level < 10 mg/dL (0-10) Images Images Sigmoid inflammation and LLQ abscess Assessment/Plan Assessment/Plan LLQ abscess, suspect perforated diverticulitis agree with abx and supportive care will try clears will ask IR to evaluate for drainage. If not improved, may need Xlap and sigmoid resection with colostomy, but appears to be improving with current care. Thanks for consult! AMELIA YAN MD Feb 01, 2019 16:56
[2019-02-02] MEDS: MORPHINE SULFATE 4 MG/ML VIAL. IV PRN ×7 (00:37→23:53)
[2019-02-02 03:57] VITALS: BP 142/98
[2019-02-02 06:07] LABS: BASO % 0 % (0-3); EOS # 0.1 x10^3/uL (0.0-0.7); EOS % 0 % (0-3); HEMATOCRIT 34.5 % (39.0-53.0); HEMOGLOBIN 11.5 g/dL (13.0-17.5); LYMPH # 1.1 x10^3/uL (1.0-4.8); LYMPH % 8 % (24-48); MEAN CORPUSCULAR HEMOGLOBIN 28 pg (25-35); MEAN CORPUSCULAR HGB CONC 33 g/dL (31-37); MEAN CORPUSCULAR VOLUME 85 fL (79-100); MONO # 1.6 x10^3/uL (0.0-1.1); MONO % 11 % (0-9); NEUT # 11.3 x10^3uL (1.8-7.7); NEUT % 81 % (31-73); PLATELET COUNT 233 x10^3/uL (140-400); RED BLOOD COUNT 4.06 x10^6/uL (4.30-5.70); RED CELL DISTRIBUTION WIDTH 14.2 % (11.5-14.5); WHITE BLOOD COUNT 14.1 x10^3/uL (4.0-11.0)
[2019-02-02 06:11] LABS: ALBUMIN 2.3 g/dL (3.4-5.0); ALBUMIN/GLOBULIN RATIO 0.5 (1.0-1.7); CALCIUM 8.5 mg/dL (8.5-10.1); CREATININE 1.3 mg/dL (0.7-1.3); GFR 57.1; POTASSIUM 3.8 mmol/L (3.5-5.1); TOTAL BILIRUBIN 1.8 mg/dL (0.2-1.0); TOTAL PROTEIN 6.5 g/dL (6.4-8.2)
--- NOTE | 2019-02-02 06:39 | CONS ---
DATE OF CONSULTATION: 02/01/2019 REQUESTING PHYSICIAN: Dr. Schaefer. REASON FOR CONSULTATION: Sepsis and pelvic abscess. HISTORY OF PRESENT ILLNESS: This patient is 58-year-old male who explains about 5 days ago, while he was sitting watching TV, he developed sudden onset of left lower quadrant abdominal pain. He had been constipated and thought the pain was related to him being "bound up." So he took some laxatives and had a bowel movement with some pain relief. However, over the following few days, the abdominal pain became increasingly worse. He developed fevers, chills and loss of appetite. [place] admission, [place] [id number]. A [place] scan abdomen/pelvis without contrast revealed a left hemipelvis abscess measuring 5.1 x 3.4 cm and contains considerable surrounding inflammation and mild wall thickening of the proximal sigmoid colon, as well as mild hydronephrosis and left hydroureter. He is currently on vancomycin, Zosyn and metronidazole. PAST MEDICAL HISTORY: Depression. PAST SURGICAL HISTORY: Tonsillectomy, appendectomy, ventral hernia repair. FAMILY HISTORY: Noncontributory. SOCIAL HISTORY: History of homelessness. He is currently living with his kids. He denies substance abuse, although his urine toxicology is positive for methamphetamine. SOCIAL HISTORY: Nonsmoker. He is unemployed. ALLERGIES: No known drug allergies. MEDICATIONS: Vancomycin, Zosyn and metronidazole. Other medications are available and have been reviewed on the MAR. REVIEW OF SYSTEMS: The patient continued to have abdominal pain, mid lower and left quadrant areas. He denies nausea or vomiting. He says he is very thirsty and would like a drink of Sprite. He denies difficulty urinating. Denies cough, shortness of air or chest discomfort. Other review of systems are negative. PHYSICAL EXAMINATION: VITAL SIGNS: Temperature 98.8, T-max 100.3, blood pressure 136/92, heart rate 108, respiratory rate 20, pulse oximetry is 95% on room air. BMI 28. GENERAL: The patient propped up in bed, alert, in no apparent distress. HEENT: Pupils equally round. Normal conjunctivae. Oral cavity pink and moist. NECK: Supple. LUNGS: Clear to auscultation. HEART: S1 and S2. ABDOMEN: Obese, soft and mildly tender with bowel sounds present. EXTREMITIES: No gross edema or cyanosis. SKIN: Warm without rash. NEUROLOGIC: Alert and oriented times 3. LABORATORY DATA: From January 31, WBC 15.1, hemoglobin 13.5, platelet count [id number]. Sodium 133, potassium 3.9, creatinine 1.0, BUN 14, glucose 105. Lactic acid 1.4, total bilirubin 1.5, AST 25, ALT 29, albumin 2.8, lipase 127. Urine toxicology positive for amphetamine/methamphetamine. Urinalysis unremarkable for infection. Blood cultures are pending. IMAGING DATA: CT abdomen/pelvis per HPI. IMPRESSION: 1. Sepsis. 2. Pelvic abscess measuring 5.1 x 3.4 cm. 3. Perforated diverticulitis suspected. 4. Urine toxicology positive for methamphetamine. The patient denies use. PLAN: Continue the Zosyn. There is no need for metronidazole, as Zosyn has good anaerobic coverage. Discontinue the vancomycin as well. General surgery has been consulted and awaiting evaluation. Continue to monitor WBC count and temperature. Thank you, Dr. Schaefer, for asking us to participate in this patient's care. Should you have further questions or concerns, please call. The patient was seen and examined and plan of care implemented by Dr. Jaison Bolivar. JAISON BOLIVAR MD DR: BILL/hang JOB#: [id number] / [id number]
--- NOTE | 2019-02-02 07:10 | CONS ---
DATE OF CONSULTATION: 02/01/2019 REQUESTING PHYSICIAN: Dr. Schaefer. REASON FOR CONSULTATION: Sepsis and pelvic abscess. HISTORY OF PRESENT ILLNESS: This patient is a 58-year-old male who explained that about 5 days ago while he was sitting, watching TV, he developed sudden onset of left lower ____ DICTATION ENDS HERE ANDERSON BOLIVAR MD DR: BILL/hang JOB#: [id number] / [id number] Incomplete, full consult dictated MTDD
[2019-02-02 07:20] VITALS: BP 168/96
[2019-02-02] MEDS: PANTOPRAZOLE IV PUSH 40 MG VIAL. IVP SCH (08:41)
[2019-02-02 11:17] VITALS: BP 156/95
--- NOTE | 2019-02-02 11:30 | PDOC ---
Infectious Disease Note Subjective Subjective Feeling better after taking a shower Says pain level about the same though, no worse or better + flatus. No BM Low-grade fever 100.2 ROS ROS per HPI Vital Sign Vital Signs Vital Signs Date Time Temp Pulse Resp B/P (MAP) Pulse Ox O2 Delivery O2 Flow Rate FiO2 02/02/19 11:17 98.5 95 20 156/95 (115) 95 Room Air 98.5 02/02/19 08:43 99.0 Physical Exam PHYSICAL EXAM GENERAL: Lying down, relaxed appearance HEENT: Pupils equally round. Normal conjunctivae. Oral cavity pink and moist. NECK: Supple. LUNGS: Clear to auscultation. HEART: S1 and S2. ABDOMEN: Obese, soft and mildly tender with bowel sounds present. EXTREMITIES: No gross edema or cyanosis. SKIN: Warm without rash. NEUROLOGIC: Alert and oriented times 3. PIV Labs Lab Laboratory Tests Test 02/02/19 05:30 White Blood Count 14.1 x10^3/uL (4.0-11.0) Red Blood Count 4.06 x10^6/uL (4.30-5.70) Hemoglobin 11.5 g/dL (13.0-17.5) Hematocrit 34.5 % (39.0-53.0) Mean Corpuscular Volume 85 fL (79-100) Mean Corpuscular Hemoglobin 28 pg (25-35) Mean Corpuscular Hemoglobin Concent 33 g/dL (31-37) Red Cell Distribution Width 14.2 % (11.5-14.5) Platelet Count 233 x10^3/uL (140-400) Neutrophils (%) (Auto) 81 % (31-73) Lymphocytes (%) (Auto) 8 % (24-48) Monocytes (%) (Auto) 11 % (0-9) Eosinophils (%) (Auto) 0 % (0-3) Basophils (%) (Auto) 0 % (0-3) Neutrophils # (Auto) 11.3 x10^3uL (1.8-7.7) Lymphocytes # (Auto) 1.1 x10^3/uL (1.0-4.8) Monocytes # (Auto) 1.6 x10^3/uL (0.0-1.1) Eosinophils # (Auto) 0.1 x10^3/uL (0.0-0.7) Basophils # (Auto) 0.0 x10^3/uL (0.0-0.2) Sodium Level 134 mmol/L (136-145) Potassium Level 3.8 mmol/L (3.5-5.1) Chloride Level 98 mmol/L (98-107) Carbon Dioxide Level 26 mmol/L (21-32) Anion Gap 10 (6-14) Blood Urea Nitrogen 13 mg/dL (8-26) Creatinine 1.3 mg/dL (0.7-1.3) Estimated GFR (Cockcroft-Gault) 57.1 BUN/Creatinine Ratio 10 (6-20) Glucose Level 116 mg/dL (70-99) Calcium Level 8.5 mg/dL (8.5-10.1) Total Bilirubin 1.8 mg/dL (0.2-1.0) Aspartate Amino Transf (AST/SGOT) 18 U/L (15-37) Alanine Aminotransferase (ALT/SGPT) 24 U/L (16-63) Alkaline Phosphatase 130 U/L (46-116) Total Protein 6.5 g/dL (6.4-8.2) Albumin 2.3 g/dL (3.4-5.0) Albumin/Globulin Ratio 0.5 (1.0-1.7) Micro Microbiology 01/31/19 Blood Culture - Preliminary, Resulted NO GROWTH AFTER 1 DAY Objective Assessment Sepsis Pelvic abscess measuring 5.1 x 3.4 cm and contains considerable surrounding inflammation. ? perforated diverticulitis Urine tox positive for meth. Patient denies drug use. Plan Plan of Care [facility] IR has been consulted for drainage Gen surgery following Monitor WBC/temp Pain management per primary Attending Co-Sign The patient was seen and interviewed as well as examined at the bedside. The chart was reviewed. The case was discussed. Agree with the plan of care. MESHA CRABTREE APRN Feb 02, 2019 11:30 ANDERSON BOLIVAR MD Feb 02, 2019 13:38
[2019-02-02] MEDS: PIPERACILLIN/TAZOBACTAM 3.375 GM in IV NORMAL SALINE 50ML 50 ML IV SCH ×3 (12:34→23:53)
[2019-02-02 15:00] VITALS: BP 151/86
--- NOTE | 2019-02-02 15:34 | PDOC ---
SURGICAL PROGRESS NOTE Subjective Pt without new c/o, persistent pain Vital Signs Vital Signs Date Time Temp Pulse Resp B/P (MAP) Pulse Ox O2 Delivery O2 Flow Rate FiO2 02/02/19 13:09 95 Room Air 99.0 02/02/19 11:17 98.5 95 20 156/95 (115) 98.5 I&O Intake and Output 02/02/19 07:00 Intake Total 780 ml Output Total 1775 ml Balance -995 ml Intake Oral 780 ml Output Urine Total 1775 ml General: Alert, Oriented X3, Cooperative, mild distress Abdomen: Soft, Other (mild TTP LLQ) Labs Laboratory Tests Test 01/31/19 20:26 01/31/19 20:31 01/31/19 21:07 02/02/19 05:30 Urine Collection Type Unknown Urine Color Consuelo Urine Clarity Clear Urine pH 6.0 Urine Specific [place] >=1.030 Urine Protein 100 mg/dL (NEG-TRACE) Urine Glucose (UA) Negative mg/dL (NEG) Urine Ketones (Stick) Trace mg/dL (NEG) Urine Blood Negative (NEG) Urine Nitrite Negative (NEG) Urine Bilirubin Small (NEG) Urine Urobilinogen Dipstick 1.0 mg/dL (0.2 mg/dL) Urine Leukocyte Esterase Trace (NEG) Urine RBC 6-10 /HPF (0-2) Urine WBC 1-4 /HPF (0-4) Urine Transitional Epithelial Cells Few /LPF Urine Bacteria 0 /HPF (0-FEW) Urine Hyaline Casts Few /HPF Urine Granular Casts Occasional /HPF Urine Mucus Marked /LPF Urine Opiates Screen Neg (NEG) Urine Methadone Screen Neg (NEG) Urine Barbiturates Neg (NEG) Urine Phencyclidine Screen Neg (NEG) Urine Amphetamine/Methamphetamine Pos (NEG) Urine Benzodiazepines Screen Neg (NEG) Urine Cocaine Screen Neg (NEG) Urine Cannabinoids Screen Neg (NEG) Urine Ethyl Alcohol Neg (NEG) White Blood Count 15.1 x10^3/uL (4.0-11.0) 14.1 x10^3/uL (4.0-11.0) Red Blood Count 4.87 x10^6/uL (4.30-5.70) 4.06 x10^6/uL (4.30-5.70) Hemoglobin 13.5 g/dL (13.0-17.5) 11.5 g/dL (13.0-17.5) Hematocrit 41.0 % (39.0-53.0) 34.5 % (39.0-53.0) Mean Corpuscular Volume 84 fL (79-100) 85 fL (79-100) Mean Corpuscular Hemoglobin 28 pg (25-35) 28 pg (25-35) Mean Corpuscular Hemoglobin Concent 33 g/dL (31-37) 33 g/dL (31-37) Red Cell Distribution Width 14.2 % (11.5-14.5) 14.2 % (11.5-14.5) Platelet Count 245 x10^3/uL (140-400) 233 x10^3/uL (140-400) Neutrophils (%) (Auto) 81 % (31-73) 81 % (31-73) Lymphocytes (%) (Auto) 8 % (24-48) 8 % (24-48) Monocytes (%) (Auto) 10 % (0-9) 11 % (0-9) Eosinophils (%) (Auto) 1 % (0-3) 0 % (0-3) Basophils (%) (Auto) 1 % (0-3) 0 % (0-3) Neutrophils # (Auto) 12.2 x10^3uL (1.8-7.7) 11.3 x10^3uL (1.8-7.7) Lymphocytes # (Auto) 1.2 x10^3/uL (1.0-4.8) 1.1 x10^3/uL (1.0-4.8) Monocytes # (Auto) 1.5 x10^3/uL (0.0-1.1) 1.6 x10^3/uL (0.0-1.1) Eosinophils # (Auto) 0.1 x10^3/uL (0.0-0.7) 0.1 x10^3/uL (0.0-0.7) Basophils # (Auto) 0.1 x10^3/uL (0.0-0.2) 0.0 x10^3/uL (0.0-0.2) Sodium Level 133 mmol/L (136-145) 134 mmol/L (136-145) Potassium Level 3.9 mmol/L (3.5-5.1) 3.8 mmol/L (3.5-5.1) Chloride Level 99 mmol/L (98-107) 98 mmol/L (98-107) Carbon Dioxide Level 24 mmol/L (21-32) 26 mmol/L (21-32) Anion Gap 10 (6-14) 10 (6-14) Blood Urea Nitrogen 14 mg/dL (8-26) 13 mg/dL (8-26) Creatinine 1.0 mg/dL (0.7-1.3) 1.3 mg/dL (0.7-1.3) Estimated GFR (Cockcroft-Gault) 77.3 57.1 BUN/Creatinine Ratio 14 (6-20) 10 (6-20) Glucose Level 105 mg/dL (70-99) 116 mg/dL (70-99) Lactic Acid Level 1.4 mmol/L (0.4-2.0) Calcium Level 8.9 mg/dL (8.5-10.1) 8.5 mg/dL (8.5-10.1) Total Bilirubin 1.5 mg/dL (0.2-1.0) 1.8 mg/dL (0.2-1.0) Aspartate Amino Transf (AST/SGOT) 25 U/L (15-37) 18 U/L (15-37) Alanine Aminotransferase (ALT/SGPT) 29 U/L (16-63) 24 U/L (16-63) Alkaline Phosphatase 144 U/L (46-116) 130 U/L (46-116) Total Protein 7.3 g/dL (6.4-8.2) 6.5 g/dL (6.4-8.2) Albumin 2.8 g/dL (3.4-5.0) 2.3 g/dL (3.4-5.0) Albumin/Globulin Ratio 0.6 (1.0-1.7) 0.5 (1.0-1.7) Lipase 127 U/L (73-393) Ethyl Alcohol Level < 10 mg/dL (0-10) Laboratory Tests Test 02/02/19 05:30 White Blood Count 14.1 x10^3/uL (4.0-11.0) Red Blood Count 4.06 x10^6/uL (4.30-5.70) Hemoglobin 11.5 g/dL (13.0-17.5) Hematocrit 34.5 % (39.0-53.0) Mean Corpuscular Volume 85 fL (79-100) Mean Corpuscular Hemoglobin 28 pg (25-35) Mean Corpuscular Hemoglobin Concent 33 g/dL (31-37) Red Cell Distribution Width 14.2 % (11.5-14.5) Platelet Count 233 x10^3/uL (140-400) Neutrophils (%) (Auto) 81 % (31-73) Lymphocytes (%) (Auto) 8 % (24-48) Monocytes (%) (Auto) 11 % (0-9) Eosinophils (%) (Auto) 0 % (0-3) Basophils (%) (Auto) 0 % (0-3) Neutrophils # (Auto) 11.3 x10^3uL (1.8-7.7) Lymphocytes # (Auto) 1.1 x10^3/uL (1.0-4.8) Monocytes # (Auto) 1.6 x10^3/uL (0.0-1.1) Eosinophils # (Auto) 0.1 x10^3/uL (0.0-0.7) Basophils # (Auto) 0.0 x10^3/uL (0.0-0.2) Sodium Level 134 mmol/L (136-145) Potassium Level 3.8 mmol/L (3.5-5.1) Chloride Level 98 mmol/L (98-107) Carbon Dioxide Level 26 mmol/L (21-32) Anion Gap 10 (6-14) Blood Urea Nitrogen 13 mg/dL (8-26) Creatinine 1.3 mg/dL (0.7-1.3) Estimated GFR (Cockcroft-Gault) 57.1 BUN/Creatinine Ratio 10 (6-20) Glucose Level 116 mg/dL (70-99) Calcium Level 8.5 mg/dL (8.5-10.1) Total Bilirubin 1.8 mg/dL (0.2-1.0) Aspartate Amino Transf (AST/SGOT) 18 U/L (15-37) Alanine Aminotransferase (ALT/SGPT) 24 U/L (16-63) Alkaline Phosphatase 130 U/L (46-116) Total Protein 6.5 g/dL (6.4-8.2) Albumin 2.3 g/dL (3.4-5.0) Albumin/Globulin Ratio 0.5 (1.0-1.7) Problem List Problems Medical Problems: (1) Abscess of pelvis Status: Acute (2) Elevated blood pressure reading without diagnosis of hypertension Status: Acute (3) Methamphetamine abuse Status: Acute (4) SIRS (systemic inflammatory response syndrome) Status: Acute Assessment/Plan abd abscess cont abx appreciate IR consider drainage AMELIA YAN MD Feb 02, 2019 15:34
[2019-02-02] MEDS: ENOXAPARIN 40 MG/0.4 ML SYRINGE. SQ SCH (15:46)
--- NOTE | 2019-02-02 16:05 | PDOC ---
PROGRESS NOTES Chief Complaint Chief Complaint acute abdomen perforated diverticulum sepsis HX POLYSUBSTANCE ABUSE History of Present Illness History of Present Illness broad iv abx liquid diet ID and gen surg following, IR to eval tomorrow Vitals Vitals Vital Signs Date Time Temp Pulse Resp B/P (MAP) Pulse Ox O2 Delivery O2 Flow Rate FiO2 02/02/19 15:46 95 Room Air 99.0 02/02/19 11:17 98.5 95 20 156/95 (115) 98.5 Physical Exam Physical Exam GENERAL: Lying down, relaxed appearance HEENT: Pupils equally round. Normal conjunctivae. Oral cavity pink and moist. NECK: Supple. LUNGS: Clear to auscultation. HEART: S1 and S2. ABDOMEN: Obese, soft and mildly tender with bowel sounds present. EXTREMITIES: No gross edema or cyanosis. SKIN: Warm without rash. NEUROLOGIC: Alert and oriented times 3. PIV General: Alert, Oriented X3, Cooperative, mild distress Lungs: Clear Abdomen: Soft, Other (mild TTP LLQ) Extremities: No clubbing, No cyanosis Skin: No rashes, No breakdown Labs LABS Laboratory Tests Test 02/02/19 05:30 White Blood Count 14.1 x10^3/uL (4.0-11.0) Red Blood Count 4.06 x10^6/uL (4.30-5.70) Hemoglobin 11.5 g/dL (13.0-17.5) Hematocrit 34.5 % (39.0-53.0) Mean Corpuscular Volume 85 fL (79-100) Mean Corpuscular Hemoglobin 28 pg (25-35) Mean Corpuscular Hemoglobin Concent 33 g/dL (31-37) Red Cell Distribution Width 14.2 % (11.5-14.5) Platelet Count 233 x10^3/uL (140-400) Neutrophils (%) (Auto) 81 % (31-73) Lymphocytes (%) (Auto) 8 % (24-48) Monocytes (%) (Auto) 11 % (0-9) Eosinophils (%) (Auto) 0 % (0-3) Basophils (%) (Auto) 0 % (0-3) Neutrophils # (Auto) 11.3 x10^3uL (1.8-7.7) Lymphocytes # (Auto) 1.1 x10^3/uL (1.0-4.8) Monocytes # (Auto) 1.6 x10^3/uL (0.0-1.1) Eosinophils # (Auto) 0.1 x10^3/uL (0.0-0.7) Basophils # (Auto) 0.0 x10^3/uL (0.0-0.2) Sodium Level 134 mmol/L (136-145) Potassium Level 3.8 mmol/L (3.5-5.1) Chloride Level 98 mmol/L (98-107) Carbon Dioxide Level 26 mmol/L (21-32) Anion Gap 10 (6-14) Blood Urea Nitrogen 13 mg/dL (8-26) Creatinine 1.3 mg/dL (0.7-1.3) Estimated GFR (Cockcroft-Gault) 57.1 BUN/Creatinine Ratio 10 (6-20) Glucose Level 116 mg/dL (70-99) Calcium Level 8.5 mg/dL (8.5-10.1) Total Bilirubin 1.8 mg/dL (0.2-1.0) Aspartate Amino Transf (AST/SGOT) 18 U/L (15-37) Alanine Aminotransferase (ALT/SGPT) 24 U/L (16-63) Alkaline Phosphatase 130 U/L (46-116) Total Protein 6.5 g/dL (6.4-8.2) Albumin 2.3 g/dL (3.4-5.0) Albumin/Globulin Ratio 0.5 (1.0-1.7) Assessment and Plan Assessmemt and Plan Problems Medical Problems: (1) Abscess of pelvis Status: Acute (2) Elevated blood pressure reading without diagnosis of hypertension Status: Acute (3) Methamphetamine abuse Status: Acute (4) SIRS (systemic inflammatory response syndrome) Status: Acute Comment Review of Relevant I have reviewed the following items ted (where applicable) has been applied. Labs Laboratory Tests Test 01/31/19 20:26 01/31/19 20:31 01/31/19 21:07 02/02/19 05:30 Urine Collection Type Unknown Urine Color Consuelo Urine Clarity Clear Urine pH 6.0 Urine Specific [place] >=1.030 Urine Protein 100 mg/dL (NEG-TRACE) Urine Glucose (UA) Negative mg/dL (NEG) Urine Ketones (Stick) Trace mg/dL (NEG) Urine Blood Negative (NEG) Urine Nitrite Negative (NEG) Urine Bilirubin Small (NEG) Urine Urobilinogen Dipstick 1.0 mg/dL (0.2 mg/dL) Urine Leukocyte Esterase Trace (NEG) Urine RBC 6-10 /HPF (0-2) Urine WBC 1-4 /HPF (0-4) Urine Transitional Epithelial Cells Few /LPF Urine Bacteria 0 /HPF (0-FEW) Urine Hyaline Casts Few /HPF Urine Granular Casts Occasional /HPF Urine Mucus Marked /LPF Urine Opiates Screen Neg (NEG) Urine Methadone Screen Neg (NEG) Urine Barbiturates Neg (NEG) Urine Phencyclidine Screen Neg (NEG) Urine Amphetamine/Methamphetamine Pos (NEG) Urine Benzodiazepines Screen Neg (NEG) Urine Cocaine Screen Neg (NEG) Urine Cannabinoids Screen Neg (NEG) Urine Ethyl Alcohol Neg (NEG) White Blood Count 15.1 x10^3/uL (4.0-11.0) 14.1 x10^3/uL (4.0-11.0) Red Blood Count 4.87 x10^6/uL (4.30-5.70) 4.06 x10^6/uL (4.30-5.70) Hemoglobin 13.5 g/dL (13.0-17.5) 11.5 g/dL (13.0-17.5) Hematocrit 41.0 % (39.0-53.0) 34.5 % (39.0-53.0) Mean Corpuscular Volume 84 fL (79-100) 85 fL (79-100) Mean Corpuscular Hemoglobin 28 pg (25-35) 28 pg (25-35) Mean Corpuscular Hemoglobin Concent 33 g/dL (31-37) 33 g/dL (31-37) Red Cell Distribution Width 14.2 % (11.5-14.5) 14.2 % (11.5-14.5) Platelet Count 245 x10^3/uL (140-400) 233 x10^3/uL (140-400) Neutrophils (%) (Auto) 81 % (31-73) 81 % (31-73) Lymphocytes (%) (Auto) 8 % (24-48) 8 % (24-48) Monocytes (%) (Auto) 10 % (0-9) 11 % (0-9) Eosinophils (%) (Auto) 1 % (0-3) 0 % (0-3) Basophils (%) (Auto) 1 % (0-3) 0 % (0-3) Neutrophils # (Auto) 12.2 x10^3uL (1.8-7.7) 11.3 x10^3uL (1.8-7.7) Lymphocytes # (Auto) 1.2 x10^3/uL (1.0-4.8) 1.1 x10^3/uL (1.0-4.8) Monocytes # (Auto) 1.5 x10^3/uL (0.0-1.1) 1.6 x10^3/uL (0.0-1.1) Eosinophils # (Auto) 0.1 x10^3/uL (0.0-0.7) 0.1 x10^3/uL (0.0-0.7) Basophils # (Auto) 0.1 x10^3/uL (0.0-0.2) 0.0 x10^3/uL (0.0-0.2) Sodium Level 133 mmol/L (136-145) 134 mmol/L (136-145) Potassium Level 3.9 mmol/L (3.5-5.1) 3.8 mmol/L (3.5-5.1) Chloride Level 99 mmol/L (98-107) 98 mmol/L (98-107) Carbon Dioxide Level 24 mmol/L (21-32) 26 mmol/L (21-32) Anion Gap 10 (6-14) 10 (6-14) Blood Urea Nitrogen 14 mg/dL (8-26) 13 mg/dL (8-26) Creatinine 1.0 mg/dL (0.7-1.3) 1.3 mg/dL (0.7-1.3) Estimated GFR (Cockcroft-Gault) 77.3 57.1 BUN/Creatinine Ratio 14 (6-20) 10 (6-20) Glucose Level 105 mg/dL (70-99) 116 mg/dL (70-99) Lactic Acid Level 1.4 mmol/L (0.4-2.0) Calcium Level 8.9 mg/dL (8.5-10.1) 8.5 mg/dL (8.5-10.1) Total Bilirubin 1.5 mg/dL (0.2-1.0) 1.8 mg/dL (0.2-1.0) Aspartate Amino Transf (AST/SGOT) 25 U/L (15-37) 18 U/L (15-37) Alanine Aminotransferase (ALT/SGPT) 29 U/L (16-63) 24 U/L (16-63) Alkaline Phosphatase 144 U/L (46-116) 130 U/L (46-116) Total Protein 7.3 g/dL (6.4-8.2) 6.5 g/dL (6.4-8.2) Albumin 2.8 g/dL (3.4-5.0) 2.3 g/dL (3.4-5.0) Albumin/Globulin Ratio 0.6 (1.0-1.7) 0.5 (1.0-1.7) Lipase 127 U/L (73-393) Ethyl Alcohol Level < 10 mg/dL (0-10) Laboratory Tests Test 02/02/19 05:30 White Blood Count 14.1 x10^3/uL (4.0-11.0) Red Blood Count 4.06 x10^6/uL (4.30-5.70) Hemoglobin 11.5 g/dL (13.0-17.5) Hematocrit 34.5 % (39.0-53.0) Mean Corpuscular Volume 85 fL (79-100) Mean Corpuscular Hemoglobin 28 pg (25-35) Mean Corpuscular Hemoglobin Concent 33 g/dL (31-37) Red Cell Distribution Width 14.2 % (11.5-14.5) Platelet Count 233 x10^3/uL (140-400) Neutrophils (%) (Auto) 81 % (31-73) Lymphocytes (%) (Auto) 8 % (24-48) Monocytes (%) (Auto) 11 % (0-9) Eosinophils (%) (Auto) 0 % (0-3) Basophils (%) (Auto) 0 % (0-3) Neutrophils # (Auto) 11.3 x10^3uL (1.8-7.7) Lymphocytes # (Auto) 1.1 x10^3/uL (1.0-4.8) Monocytes # (Auto) 1.6 x10^3/uL (0.0-1.1) Eosinophils # (Auto) 0.1 x10^3/uL (0.0-0.7) Basophils # (Auto) 0.0 x10^3/uL (0.0-0.2) Sodium Level 134 mmol/L (136-145) Potassium Level 3.8 mmol/L (3.5-5.1) Chloride Level 98 mmol/L (98-107) Carbon Dioxide Level 26 mmol/L (21-32) Anion Gap 10 (6-14) Blood Urea Nitrogen 13 mg/dL (8-26) Creatinine 1.3 mg/dL (0.7-1.3) Estimated GFR (Cockcroft-Gault) 57.1 BUN/Creatinine Ratio 10 (6-20) Glucose Level 116 mg/dL (70-99) Calcium Level 8.5 mg/dL (8.5-10.1) Total Bilirubin 1.8 mg/dL (0.2-1.0) Aspartate Amino Transf (AST/SGOT) 18 U/L (15-37) Alanine Aminotransferase (ALT/SGPT) 24 U/L (16-63) Alkaline Phosphatase 130 U/L (46-116) Total Protein 6.5 g/dL (6.4-8.2) Albumin 2.3 g/dL (3.4-5.0) Albumin/Globulin Ratio 0.5 (1.0-1.7) Microbiology 01/31/19 Blood Culture - Preliminary, Resulted NO GROWTH AFTER 1 DAY Medications Current Medications Sodium Chloride 1,000 ml @ 1,000 mls/hr Q1H IV Last administered on 01/31/19at 20:42; Start 01/31/19 at 20:12; Stop 01/31/19 at 21:11; Status DC Fentanyl Citrate (Fentanyl 2ml Vial) 50 mcg 1X ONCE IV Last administered on 01/31/19at 20:49; Start 01/31/19 at 20:45; Stop 01/31/19 at 20:46; Status DC Ondansetron HCl (Zofran) 4 mg 1X ONCE IV Last administered on 01/31/19at 20:49; Start 01/31/19 at 20:45; Stop 01/31/19 at 20:46; Status DC Morphine Sulfate (Morphine Sulfate) 4 mg 1X ONCE IV Last administered on 01/31/19at 23:01; Start 01/31/19 at 23:00; Stop 01/31/19 at 23:01; Status DC Piperacillin Sod/ Tazobactam Sod 3.375 gm/Sodium Chloride 50 ml @ 100 mls/hr 1X ONCE IV Last administered on 01/31/19at 23:52; Start 01/31/19 at 23:00; Stop 01/31/19 at 23:29; Status DC Metronidazole 100 ml @ 100 mls/hr Q8HRS IV Last administered on 02/01/19at 14:17; Start 02/01/19 at 06:00; Stop 02/01/19 at 14:27; Status DC Metronidazole 100 ml @ 100 mls/hr 1X ONCE IV Last administered on 01/31/19at 23:03; Start 01/31/19 at 23:00; Stop 01/31/19 at 23:59; Status DC Vancomycin HCl 250 ml @ 250 mls/hr 1X ONCE IV ; Start 01/31/19 at 22:45; Stop 01/31/19 at 23:44; Status UNV Sodium Chloride 1,000 ml @ 1,000 mls/hr 1X ONCE IV Last administered on 01/31/19at 23:02; Start 01/31/19 at 23:00; Stop 01/31/19 at 23:59; Status DC Vancomycin HCl (Vanco Per Pharmacy) 1 each PRN DAILY PRN MC SEE COMMENTS Last administered on 02/01/19at 13:44; Start 01/31/19 at 22:45; Stop 02/01/19 at 14:31; Status DC Vancomycin HCl 2 gm/Sodium Chloride 500 ml @ 250 mls/hr 1X ONCE IV Last administered on 02/01/19at 00:23; Start 01/31/19 at 23:00; Stop 02/01/19 at 00:59; Status DC Ondansetron HCl (Zofran) 4 mg PRN Q8HRS PRN IV NAUSEA/VOMITING 1ST CHOICE Last administered on 01/31/19at 23:01; Start 01/31/19 at 22:45; Stop 02/01/19 at 22:44; Status DC Morphine Sulfate (Morphine Sulfate) 4 mg PRN Q4HRS PRN IV SEVERE PAIN Last administered on 02/01/19at 19:50; Start 01/31/19 at 22:45; Stop 02/01/19 at 22:44; Status DC Piperacillin Sod/ Tazobactam Sod 3.375 gm/Sodium Chloride 50 ml @ 100 mls/hr Q6HRS IV Last administered on 02/01/19at 05:55; Start 02/01/19 at 06:00; Stop 02/01/19 at 06:02; Status DC Vancomycin HCl 1.5 gm/Sodium Chloride 500 ml @ 250 mls/hr Q8H IV Last administered on 02/01/19at 08:31; Start 02/01/19 at 09:00; Stop 02/01/19 at 14:31; Status DC Vancomycin HCl (Vancomycin Trough Level) 1 each 1X ONCE MC ; Start 02/02/19 at 00:30; Stop 02/02/19 at 00:30; Status DC Enoxaparin Sodium (Lovenox 40mg Syringe) 40 mg Q24H SQ Last administered on 02/02/19at 15:46; Start 02/01/19 at 16:00 Pantoprazole Sodium (PROTONIX VIAL for IV PUSH) 40 mg DAILYAC IVP Last administered on 02/02/19at 08:41; Start 02/01/19 at 15:00 Morphine Sulfate (Morphine Sulfate) 4 mg PRN Q4HRS PRN IV SEVERE PAIN Last administered on 02/02/19at 15:46; Start 02/02/19 at 00:30 Piperacillin Sod/ Tazobactam Sod 3.375 gm/Sodium Chloride 50 ml @ 100 mls/hr Q6HRS IV Last administered on 02/02/19at 12:34; Start 02/02/19 at 12:00 Active Scripts Active Ibuprofen 600 Mg Tablet 600 Mg PO PRN Q6HRS PRN Vitals/I & O Vital Sign - Last 24 Hours 02/01/19 02/01/19 02/01/19 02/01/19 19:40 19:50 20:00 20:20 Temp 99.5 99.5 Pulse 107 Resp 20 18 B/P (MAP) 158/86 (110) Pulse Ox 93 94 94 O2 Delivery Room Air Room Air Room Air Room Air 02/01/19 02/02/19 02/02/19 02/02/19 23:10 00:37 03:57 06:09 Temp 99.5 99.6 99.5 99.6 Pulse 100 107 Resp 24 24 B/P (MAP) 141/77 (98) 142/98 (113) Pulse Ox 91 91 90 90 O2 Delivery Room Air Room Air Room Air Room Air 02/02/19 02/02/19 02/02/19 02/02/19 07:20 08:00 08:43 11:17 Temp 100.2 98.5 100.2 98.5 Pulse 102 95 Resp 20 20 B/P (MAP) 168/96 (120) 156/95 (115) Pulse Ox 92 92 95 O2 Delivery Room Air Room Air Room Air Room Air O2 Flow Rate 99.0 99.0 02/02/19 02/02/19 02/02/19 12:35 13:09 15:46 Pulse Ox 95 95 95 O2 Delivery Room Air Room Air Room Air O2 Flow Rate 99.0 99.0 99.0 Intake and Output 02/01/19 02/01/19 02/02/19 15:00 23:00 07:00 Intake Total 0 ml 300 ml 480 ml Output Total 550 ml 525 ml 700 ml Balance -550 ml -225 ml -220 ml ELOY SKINNER MD Feb 02, 2019 16:05
[2019-02-02 19:49] VITALS: BP_SYST 153; BP_DIAS 89; BP_DIAS 92
[2019-02-02] MEDS: ACETAMINOPHEN 325 MG TABLET. PO PRN (19:59)
[2019-02-02 23:27] VITALS: BP_SYST 172; BP_SYST 178; BP_DIAS 115; BP_DIAS 120
[2019-02-02] MEDS ORDERED: LABETALOL 20 MG/4 ML DISP.SYRIN. IVP PRN (23:30)
[2019-02-03] VITALS (19 sets, daily range): BP systolic 90–198; BP diastolic 63–111
[2019-02-03] MEDS: hydrALAZINE 20 MG/ML VIAL. IVP PRN (01:42)
[2019-02-03] MEDS: LABETALOL 20 MG/4 ML DISP.SYRIN. IVP PRN ×3 (02:22→17:33)
[2019-02-03] MEDS: MORPHINE SULFATE 4 MG/ML VIAL. IV PRN ×4 (04:01→19:56)
[2019-02-03] MEDS: PIPERACILLIN/TAZOBACTAM 3.375 GM in IV NORMAL SALINE 50ML 50 ML IV SCH ×4 (05:52→23:09)
[2019-02-03] MEDS: PANTOPRAZOLE IV PUSH 40 MG VIAL. IVP SCH (07:30)
--- NOTE | 2019-02-03 08:15 | NUR ---
Notified Dr. Bojorquez of patients spike in temp to 102.6 this evening. Orders received. Will continue to monitor patient.
--- NOTE | 2019-02-03 08:57 | PDOC ---
SURGICAL PROGRESS NOTE Subjective sleeping soundly during rounds awaiting IR eval for possible drainage Vital Signs Vital Signs Date Time Temp Pulse Resp B/P (MAP) Pulse Ox O2 Delivery O2 Flow Rate FiO2 02/03/19 07:00 99.6 84 18 146/87 (106) 93 Room Air 99.6 02/03/19 04:45 99.0 I&O Intake and Output 02/03/19 06:59 Intake Total 1780 ml Output Total 1150 ml Balance 630 ml Intake Oral 1680 ml IV Total 100 ml Output Urine Total 1150 ml Labs Laboratory Tests Test 02/02/19 05:30 White Blood Count 14.1 x10^3/uL (4.0-11.0) Red Blood Count 4.06 x10^6/uL (4.30-5.70) Hemoglobin 11.5 g/dL (13.0-17.5) Hematocrit 34.5 % (39.0-53.0) Mean Corpuscular Volume 85 fL (79-100) Mean Corpuscular Hemoglobin 28 pg (25-35) Mean Corpuscular Hemoglobin Concent 33 g/dL (31-37) Red Cell Distribution Width 14.2 % (11.5-14.5) Platelet Count 233 x10^3/uL (140-400) Neutrophils (%) (Auto) 81 % (31-73) Lymphocytes (%) (Auto) 8 % (24-48) Monocytes (%) (Auto) 11 % (0-9) Eosinophils (%) (Auto) 0 % (0-3) Basophils (%) (Auto) 0 % (0-3) Neutrophils # (Auto) 11.3 x10^3uL (1.8-7.7) Lymphocytes # (Auto) 1.1 x10^3/uL (1.0-4.8) Monocytes # (Auto) 1.6 x10^3/uL (0.0-1.1) Eosinophils # (Auto) 0.1 x10^3/uL (0.0-0.7) Basophils # (Auto) 0.0 x10^3/uL (0.0-0.2) Sodium Level 134 mmol/L (136-145) Potassium Level 3.8 mmol/L (3.5-5.1) Chloride Level 98 mmol/L (98-107) Carbon Dioxide Level 26 mmol/L (21-32) Anion Gap 10 (6-14) Blood Urea Nitrogen 13 mg/dL (8-26) Creatinine 1.3 mg/dL (0.7-1.3) Estimated GFR (Cockcroft-Gault) 57.1 BUN/Creatinine Ratio 10 (6-20) Glucose Level 116 mg/dL (70-99) Calcium Level 8.5 mg/dL (8.5-10.1) Total Bilirubin 1.8 mg/dL (0.2-1.0) Aspartate Amino Transf (AST/SGOT) 18 U/L (15-37) Alanine Aminotransferase (ALT/SGPT) 24 U/L (16-63) Alkaline Phosphatase 130 U/L (46-116) Total Protein 6.5 g/dL (6.4-8.2) Albumin 2.3 g/dL (3.4-5.0) Albumin/Globulin Ratio 0.5 (1.0-1.7) Problem List Problems Medical Problems: (1) Abscess of pelvis Status: Acute (2) Elevated blood pressure reading without diagnosis of hypertension Status: Acute (3) Methamphetamine abuse Status: Acute (4) SIRS (systemic inflammatory response syndrome) Status: Acute ROCIO KEYES APRN Feb 03, 2019 08:57
--- NOTE | 2019-02-03 09:29 | PDOC2 ---
ROWAN SANTOS STAMP COLLECTOR 02/03/19 0929: CARDIAC CONSULT DATE OF CONSULT Date of Consult DATE: 02/03/19 TIME: 09:23 REASON FOR CONSULT Reason for Consult: Hypertension PVCs REFERRING PHYSICIAN Referring Physician: Dr. Crisostomo SOURCE Source: Chart review, Patient HISTORY OF PRESENT ILLNESS HISTORY OF PRESENT ILLNESS This is a 58 yo male who initially presented secondary to abdominal pain. CT notable for pelvic abscess. Plans for abscess drainage later today. Was hypertensive overnight, which prompted this consult. Patinet reports ongoing abdominal pain. No dizziness, diaphoresis, SOA, palpitations, chest pain, or nausea/vomiting. Has been mildly hypertensive since admission. No known history of hypertension, but does not go to the doctor or check blood pressure at home. PAST MEDICAL HISTORY Cardiovascular: No pertinent hx Pulmonary: No pertinent hx CENTRAL NERVOUS SYSTEM: Other (no pertinent hx) GI: No pertinent hx Heme/Onc: No pertinent hx Hepatobiliary: No pertinent hx Psych: Addictions (UDS + meth), Depression Rheumatologic: No pertinent hx Infectious disease: No pertinent hx ENT: No pertinent hx Renal/: No pertinent hx Endocrine: No pertinent hx Dermatology: No pertinent hx PAST SURGICAL HISTORY Past Surgical History: Appendectomy, Hernia Repair, Tonsillectomy FAMILY HISTORY Family History: Diabetes SOCIAL HISTORY Smoke: No ALCOHOL: none Drugs: Crystal meth (UDS + (denies) ) CURRENT MEDICATIONS CURRENT MEDICATIONS Current Medications Medications (Trade) Dose Ordered Sig/Juwan Route PRN Reason Start Time Stop Time Status Last Admin Dose Admin Piperacillin Sod/ Tazobactam Sod 3.375 gm/Sodium Chloride 50 ml @ 100 mls/hr Q6HRS IV 02/02/19 12:00 02/03/19 05:52 Acetaminophen (Tylenol) 650 mg PRN Q6HRS PRN PO FEVER 02/02/19 19:45 02/02/19 19:59 Labetalol HCl (Normodyne Iv Push) 10 mg PRN Q2HR PRN IVP HYPERTENSION, SEE COMMENTS 02/02/19 23:30 02/02/19 23:53 Labetalol HCl (Normodyne Iv Push) 20 mg PRN Q2HR PRN IVP HYPERTENSION, SEE COMMENTS 02/03/19 01:30 02/03/19 04:37 Hydralazine HCl (Apresoline Inj) 10 mg PRN Q4HRS PRN IVP ELEVATED BP, SEE COMMENTS 02/03/19 01:30 02/03/19 01:42 ALLERGIES ALLERGIES: Coded Allergies: No Known Drug Allergies (Unverified , 06/14/14) ROS Review of System 14 point ROS conducted with pertinent positives noted above in HPI. PHYSICAL EXAM General: Alert, Oriented X3, Cooperative HEENT: Atraumatic Lungs: Clear to auscultation, Normal air movement Heart: Regular rate, Normal S1, Normal S2 Abdomen: Soft (diffuse tenderness) Neuro: Sensation intact Psych/Mental Status: Mental status NL, Other (flat affect ) MUSCULOSKELETAL: Osteoarthritic changes both hands VITALS VITALS Vital Signs Date Time Temp Pulse Resp B/P (MAP) Pulse Ox O2 Delivery O2 Flow Rate FiO2 02/03/19 07:00 99.6 84 18 146/87 (106) 93 Room Air 99.6 02/03/19 04:45 99.0 ASSESSMENT/PLAN ASSESSMENT/PLAN 1. Abdominal pain; CT with abdominal abscess. ?perforated diverticulum. Possible drainage by IR today. 3. Hypertension; hydralazine and labetalol IV PRN 3. Methamphetamine use; UDS +, patient denies. 4. PVC's; Frequent PVCs yesterday, no significant ectopy noted today. Recommendations Check Mag level Add lisinopril when able to take PO Continue PRN labetalol and hydralazine IV PRN while NPO. Follow ID and surgical recs. SIXTO DIALLO MD 02/03/19 2141: CARDIAC CONSULT ASSESSMENT/PLAN ASSESSMENT/PLAN Patient seen and examined. Agree with DIAMOND POWDER TECHNICIAN's assessment and plan Agree with continuing IV antihypertensives and start lisinopril orally once able to take po PVC's on tele noted - check magnesium level and 2D echo Surgical team following for abd abscess/perf diverticulitis Thank you for your consultation ROWAN SANTOS APRN Feb 03, 2019 09:29 SIXTO DIALLO MD Feb 03, 2019 21:41
--- NOTE | 2019-02-03 10:40 | NUR ---
Pt refused labs that were ordered by cardiology. Lab was able to check a MG level from blood draw yesterday. Pt wants labs taken through saline lock. Verified with lab and this is not possible. Nayla VERDUGO with cardiology notified.
[2019-02-03] MEDS ORDERED: LIDOCAINE WITH 8.4% SOD BICARB 3 ML DISP.SYRIN. ONE (12:08)
[2019-02-03] MEDS ORDERED: MIDAZOLAM HCL/PF 2 MG/2 ML VIAL. ONE (12:09)
[2019-02-03] MEDS ORDERED: fentaNYL PF VIAL 100 MCG/2 ML VIAL ONE (12:10)
--- NOTE | 2019-02-03 12:13 | PDOC ---
Infectious Disease Note Subjective Subjective sleepy ROS ROS no n/v/d/ Vital Sign Vital Signs Vital Signs Date Time Temp Pulse Resp B/P (MAP) Pulse Ox O2 Delivery O2 Flow Rate FiO2 02/03/19 11:00 99.0 84 16 148/97 (114) 96 Room Air 99.0 02/03/19 04:45 99.0 Physical Exam PHYSICAL EXAM GENERAL: Lying down, relaxed appearance HEENT: Pupils equally round. Normal conjunctivae. Oral cavity pink and moist. NECK: Supple. LUNGS: Clear to auscultation. HEART: S1 and S2. ABDOMEN: Obese, soft and mildly tender with bowel sounds present. EXTREMITIES: No gross edema or cyanosis. SKIN: Warm without rash. NEUROLOGIC: Alert and oriented times 3. PIV Labs Micro Microbiology 01/31/19 Blood Culture - Preliminary, Resulted NO GROWTH AFTER 2 DAYS 01/31/19 Urine Culture - Final, Complete 01/31/19 Urine Culture Result 1 (LILY) - Final, Complete Objective Assessment Sepsis Pelvic abscess measuring 5.1 x 3.4 cm and contains considerable surrounding inflammation. ? perforated diverticulitis Urine tox positive for meth. Patient denies drug use. Plan Plan of Care Alcides EAGLE has been consulted for drainage Gen surgery following Monitor WBC/temp Pain management per primary ANDERSON BOLIVAR MD Feb 03, 2019 12:13
[2019-02-03] MEDS ORDERED: fentaNYL PF VIAL 100 MCG/2 ML VIAL IV ONE (12:30)
[2019-02-03] MEDS ORDERED: MIDAZOLAM HCL/PF 2 MG/2 ML VIAL. IV ONE (12:30)
[2019-02-03] MEDS ORDERED: LIDOCAINE WITH 8.4% SOD BICARB 3 ML DISP.SYRIN. IJ ONE (12:30)
--- NOTE | 2019-02-03 12:50 | NUR ---
SW following pt for anticipated dc needs. Chart reviewed. Pt lives at home with family and is self pay. ID following pt and pt is on IV abx. No dc recommendation noted at this time. Will continue to eval needs.
--- NOTE | 2019-02-03 13:15 | NUR ---
Pt returned from procedure per bed. HUMA in place in right abdomen and is draining thick white puss-like fluid. Will continue to monitor.
--- NOTE | 2019-02-03 13:46 | PDOC ---
PROGRESS NOTES Chief Complaint Chief Complaint acute abdomen pain perforated diverticulum sepsis substance abuse History of Present Illness History of Present Illness broad iv abx advance diet went to IR today, drain placed, looks brown and thick drainage ID and gen surg following, IV abd PO pain meds Vitals Vitals Vital Signs Date Time Temp Pulse Resp B/P (MAP) Pulse Ox O2 Delivery O2 Flow Rate FiO2 02/03/19 12:56 87 18 96 Nasal Cannula 2.0 02/03/19 12:53 170/91 (117) 02/03/19 11:00 99.0 99.0 Physical Exam Physical Exam GENERAL: Lying down, relaxed appearance HEENT: Pupils equally round. Normal conjunctivae. Oral cavity pink and moist. NECK: Supple. LUNGS: Clear to auscultation. HEART: S1 and S2. ABDOMEN: Obese, soft and mildly tender with bowel sounds present. EXTREMITIES: No gross edema or cyanosis. SKIN: Warm without rash. NEUROLOGIC: Alert and oriented times 3. PIV General: Alert, Oriented X3, Cooperative Heart: Regular rate, Normal S1, Normal S2 Lungs: Clear Abdomen: Soft (diffuse tenderness) Extremities: No clubbing, No cyanosis Skin: No rashes, No breakdown Assessment and Plan Assessmemt and Plan Problems Medical Problems: (1) Abscess of pelvis Status: Acute (2) Elevated blood pressure reading without diagnosis of hypertension Status: Acute (3) Methamphetamine abuse Status: Acute (4) SIRS (systemic inflammatory response syndrome) Status: Acute Comment Review of Relevant I have reviewed the following items ted (where applicable) has been applied. Labs Laboratory Tests Test 02/02/19 05:30 White Blood Count 14.1 x10^3/uL (4.0-11.0) Red Blood Count 4.06 x10^6/uL (4.30-5.70) Hemoglobin 11.5 g/dL (13.0-17.5) Hematocrit 34.5 % (39.0-53.0) Mean Corpuscular Volume 85 fL (79-100) Mean Corpuscular Hemoglobin 28 pg (25-35) Mean Corpuscular Hemoglobin Concent 33 g/dL (31-37) Red Cell Distribution Width 14.2 % (11.5-14.5) Platelet Count 233 x10^3/uL (140-400) Neutrophils (%) (Auto) 81 % (31-73) Lymphocytes (%) (Auto) 8 % (24-48) Monocytes (%) (Auto) 11 % (0-9) Eosinophils (%) (Auto) 0 % (0-3) Basophils (%) (Auto) 0 % (0-3) Neutrophils # (Auto) 11.3 x10^3uL (1.8-7.7) Lymphocytes # (Auto) 1.1 x10^3/uL (1.0-4.8) Monocytes # (Auto) 1.6 x10^3/uL (0.0-1.1) Eosinophils # (Auto) 0.1 x10^3/uL (0.0-0.7) Basophils # (Auto) 0.0 x10^3/uL (0.0-0.2) Sodium Level 134 mmol/L (136-145) Potassium Level 3.8 mmol/L (3.5-5.1) Chloride Level 98 mmol/L (98-107) Carbon Dioxide Level 26 mmol/L (21-32) Anion Gap 10 (6-14) Blood Urea Nitrogen 13 mg/dL (8-26) Creatinine 1.3 mg/dL (0.7-1.3) Estimated GFR (Cockcroft-Gault) 57.1 BUN/Creatinine Ratio 10 (6-20) Glucose Level 116 mg/dL (70-99) Calcium Level 8.5 mg/dL (8.5-10.1) Magnesium Level 1.9 mg/dL (1.8-2.4) Total Bilirubin 1.8 mg/dL (0.2-1.0) Aspartate Amino Transf (AST/SGOT) 18 U/L (15-37) Alanine Aminotransferase (ALT/SGPT) 24 U/L (16-63) Alkaline Phosphatase 130 U/L (46-116) Total Protein 6.5 g/dL (6.4-8.2) Albumin 2.3 g/dL (3.4-5.0) Albumin/Globulin Ratio 0.5 (1.0-1.7) Microbiology 01/31/19 Blood Culture - Preliminary, Resulted NO GROWTH AFTER 2 DAYS 01/31/19 Urine Culture - Final, Complete 01/31/19 Urine Culture Result 1 (LILY) - Final, Complete Medications Current Medications Sodium Chloride 1,000 ml @ 1,000 mls/hr Q1H IV Last administered on 01/31/19at 20:42; Start 01/31/19 at 20:12; Stop 01/31/19 at 21:11; Status DC Fentanyl Citrate (Fentanyl 2ml Vial) 50 mcg 1X ONCE IV Last administered on 01/31/19at 20:49; Start 01/31/19 at 20:45; Stop 01/31/19 at 20:46; Status DC Ondansetron HCl (Zofran) 4 mg 1X ONCE IV Last administered on 01/31/19at 20:49; Start 01/31/19 at 20:45; Stop 01/31/19 at 20:46; Status DC Morphine Sulfate (Morphine Sulfate) 4 mg 1X ONCE IV Last administered on 01/31/19at 23:01; Start 01/31/19 at 23:00; Stop 01/31/19 at 23:01; Status DC Piperacillin Sod/ Tazobactam Sod 3.375 gm/Sodium Chloride 50 ml @ 100 mls/hr 1X ONCE IV Last administered on 01/31/19at 23:52; Start 01/31/19 at 23:00; Stop 01/31/19 at 23:29; Status DC Metronidazole 100 ml @ 100 mls/hr Q8HRS IV Last administered on 02/01/19at 14:17; Start 02/01/19 at 06:00; Stop 02/01/19 at 14:27; Status DC Metronidazole 100 ml @ 100 mls/hr 1X ONCE IV Last administered on 01/31/19at 23:03; Start 01/31/19 at 23:00; Stop 01/31/19 at 23:59; Status DC Vancomycin HCl 250 ml @ 250 mls/hr 1X ONCE IV ; Start 01/31/19 at 22:45; Stop 01/31/19 at 23:44; Status UNV Sodium Chloride 1,000 ml @ 1,000 mls/hr 1X ONCE IV Last administered on 01/31/19at 23:02; Start 01/31/19 at 23:00; Stop 01/31/19 at 23:59; Status DC Vancomycin HCl (Vanco Per Pharmacy) 1 each PRN DAILY PRN MC SEE COMMENTS Last administered on 02/01/19at 13:44; Start 01/31/19 at 22:45; Stop 02/01/19 at 14:31; Status DC Vancomycin HCl 2 gm/Sodium Chloride 500 ml @ 250 mls/hr 1X ONCE IV Last administered on 02/01/19at 00:23; Start 01/31/19 at 23:00; Stop 02/01/19 at 00:59; Status DC Ondansetron HCl (Zofran) 4 mg PRN Q8HRS PRN IV NAUSEA/VOMITING 1ST CHOICE Last administered on 01/31/19at 23:01; Start 01/31/19 at 22:45; Stop 02/01/19 at 22:44; Status DC Morphine Sulfate (Morphine Sulfate) 4 mg PRN Q4HRS PRN IV SEVERE PAIN Last administered on 02/01/19at 19:50; Start 01/31/19 at 22:45; Stop 02/01/19 at 22:44; Status DC Piperacillin Sod/ Tazobactam Sod 3.375 gm/Sodium Chloride 50 ml @ 100 mls/hr Q6HRS IV Last administered on 02/01/19at 05:55; Start 02/01/19 at 06:00; Stop 02/01/19 at 06:02; Status DC Vancomycin HCl 1.5 gm/Sodium Chloride 500 ml @ 250 mls/hr Q8H IV Last adminis tered on 02/01/19at 08:31; Start 02/01/19 at 09:00; Stop 02/01/19 at 14:31; Status DC Vancomycin HCl (Vancomycin Trough Level) 1 each 1X ONCE MC ; Start 02/02/19 at 00:30; Stop 02/02/19 at 00:30; Status DC Enoxaparin Sodium (Lovenox 40mg Syringe) 40 mg Q24H SQ Last administered on 02/02/19at 15:46; Start 02/01/19 at 16:00 Pantoprazole Sodium (PROTONIX VIAL for IV PUSH) 40 mg DAILYAC IVP Last administered on 02/02/19at 08:41; Start 02/01/19 at 15:00 Morphine Sulfate (Morphine Sulfate) 4 mg PRN Q4HRS PRN IV SEVERE PAIN Last administered on 02/03/19at 10:50; Start 02/02/19 at 00:30 Piperacillin Sod/ Tazobactam Sod 3.375 gm/Sodium Chloride 50 ml @ 100 mls/hr Q6HRS IV Last administered on 02/03/19at 05:52; Start 02/02/19 at 12:00 Acetaminophen (Tylenol) 650 mg PRN Q6HRS PRN PO FEVER Last administered on 02/02/19at 19:59; Start 02/02/19 at 19:45 Labetalol HCl (Normodyne Iv Push) 10 mg PRN Q2HR PRN IVP HYPERTENSION, SEE COMMENTS Last administered on 02/02/19at 23:53; Start 02/02/19 at 23:30 Labetalol HCl (Normodyne Iv Push) 20 mg PRN Q2HR PRN IVP HYPERTENSION, SEE COMMENTS Last administered on 02/03/19at 04:37; Start 02/03/19 at 01:30 Hydralazine HCl (Apresoline Inj) 10 mg PRN Q4HRS PRN IVP ELEVATED BP, SEE COMMENTS Last administered on 02/03/19at 01:42; Start 02/03/19 at 01:30 Lisinopril (Prinivil) 10 mg DAILY PO ; Start 02/03/19 at 12:00 Lidocaine/Sodium Bicarbonate (Buffered Lidocaine 1%) 3 ml STK-MED ONCE .ROUTE ; Start 02/03/19 at 12:08; Stop 02/03/19 at 12:09; Status DC Midazolam HCl (Versed) 2 mg STK-MED ONCE .ROUTE ; Start 02/03/19 at 12:09; Stop 02/03/19 at 12:10; Status DC Fentanyl Citrate (Fentanyl 2ml Vial) 100 mcg STK-MED ONCE .ROUTE ; Start 02/03/19 at 12:10; Stop 02/03/19 at 12:11; Status DC Lidocaine/Sodium Bicarbonate (Buffered Lidocaine 1%) 3 ml 1X ONCE IJ Last administered on 02/03/19at 12:30; Start 02/03/19 at 12:30; Stop 02/03/19 at 12:31; Status DC Midazolam HCl (Versed) 2 mg 1X ONCE IV Last administered on 02/03/19at 12:30; Start 02/03/19 at 12:30; Stop 02/03/19 at 12:31; Status DC Fentanyl Citrate (Fentanyl 2ml Vial) 100 mcg 1X ONCE IV Last administered on 02/03/19at 12:30; Start 02/03/19 at 12:30; Stop 02/03/19 at 12:31; Status DC Active Scripts Active Ibuprofen 600 Mg Tablet 600 Mg PO PRN Q6HRS PRN Vitals/I & O Vital Sign - Last 24 Hours 02/02/19 02/02/19 02/02/19 02/02/19 15:00 15:46 19:49 19:59 Temp 98.9 100.4 98.9 100.4 Pulse 101 98 Resp 22 20 16 B/P (MAP) 151/86 (107) 153/89 (110) 153/92 (112) Pulse Ox 95 95 95 O2 Delivery Room Air Room Air Room Air Room Air O2 Flow Rate 99.0 02/02/19 02/02/19 02/02/19 02/02/19 20:00 23:27 23:53 23:53 Temp 98.0 98.0 Pulse 98 Resp 16 B/P (MAP) 178/115 (136) 172/120 172/120 (137) Pulse Ox 95 O2 Delivery Room Air Room Air O2 Flow Rate 99.0 99.0 02/03/19 02/03/19 02/03/19 02/03/19 01:42 02:10 02:22 03:00 Pulse 95 90 90 89 B/P (MAP) 180/109 190/109 (136) 190/109 165/103 (123) 02/03/19 02/03/19 02/03/19 02/03/19 03:40 04:01 04:24 04:37 Temp 99.4 99.4 Pulse 95 94 94 Resp 24 18 B/P (MAP) 190/109 (136) 198/109 (138) 198/109 Pulse Ox 93 93 O2 Delivery Room Air Room Air O2 Flow Rate 99.0 02/03/19 02/03/19 02/03/19 02/03/19 04:45 05:11 07:00 08:00 Temp 99.6 99.6 Pulse 86 84 Resp 18 B/P (MAP) 146/78 (100) 146/87 (106) Pulse Ox 93 93 O2 Delivery Room Air Room Air O2 Flow Rate 99.0 02/03/19 02/03/19 02/03/19 02/03/19 10:50 11:00 11:20 12:28 Temp 99.0 99.0 Pulse 84 84 Resp 17 16 16 14 B/P (MAP) 148/97 (114) Pulse Ox 96 96 O2 Delivery Room Air Room Air Room Air Nasal Cannula O2 Flow Rate 2.0 02/03/19 02/03/19 02/03/19 02/03/19 12:30 12:34 12:39 12:44 Pulse 89 87 87 Resp 16 13 15 16 B/P (MAP) 192/111 (138) 187/110 (135) 191/107 (135) Pulse Ox 93 93 91 O2 Delivery Nasal Cannula Nasal Cannula Nasal Cannula O2 Flow Rate 2.0 2.0 2.0 02/03/19 02/03/19 02/03/19 12:48 12:53 12:56 Pulse 87 86 87 Resp 19 16 18 B/P (MAP) 149/86 (107) 170/91 (117) Pulse Ox 95 90 96 O2 Delivery Nasal Cannula Nasal Cannula Nasal Cannula O2 Flow Rate 2.0 2.0 2.0 Intake and Output 02/02/19 02/02/19 02/03/19 14:59 22:59 06:59 Intake Total 300 ml 590 ml 890 ml Output Total 425 ml 125 ml 600 ml Balance -125 ml 465 ml 290 ml ELOY SKINNER MD Feb 03, 2019 13:46
[2019-02-03] MEDS: LISINOPRIL 10 MG TABLET PO SCH (13:50)
[2019-02-03] MEDS: oxyCODONE/APAP 7.5/325 1 TAB TABLET PO PRN ×2 (15:33→23:09)
[2019-02-03] MEDS: ENOXAPARIN 40 MG/0.4 ML SYRINGE. SQ SCH (15:40)
--- NOTE | 2019-02-03 15:56 | RAD ---
CT-guided drainage, pelvic abscess 02/03/2019 Indication: Pelvic abscess Comparison study: CT abdomen and pelvis January 31, 2019 Discussion: The risks and benefits of the procedure were discussed the patient. Informed consent was obtained. Timeout procedure was performed. The anterior abdomen was prepped and draped using sterile barrier technique. CT images redemonstrates an air-fluid collection in the in the left pelvis consistent with an abscess. Once an appropriate site for skin entry been selected 1% lidocaine without epinephrine was administered for local anesthesia. Under intermittent CT guidance a 17-gauge needle was advanced into this collection. A guidewire was advanced into the collection over which following dilatation a 10 Sudanese drain was placed. Purulent appearing material was aspirated and sent for Gram stain and culture. The drain was connected to bulb suction. The drain was secured in place and sterile dressings were applied. The procedures performed under conscious sedation including continuous cardiopulmonary monitoring via dedicated sedation nurse. [id number] sedation time: 30 minutes. Impression: CT-guided drainage, pelvic abscess
[2019-02-03] MEDS: LACTOBACILLUS RHAMNOSUS GG 1 CAPSULE. PO SCH (19:56)
[2019-02-03] MEDS: ACETAMINOPHEN 325 MG TABLET. PO PRN (19:56)
[2019-02-03] MEDS: NICOTINE 21MG PATCH. TD PRN (21:46)
[2019-02-04] MEDS: MORPHINE SULFATE 4 MG/ML VIAL. IV PRN (02:39)
[2019-02-04 03:37] VITALS: BP 120/79
[2019-02-04] MEDS: PIPERACILLIN/TAZOBACTAM 3.375 GM in IV NORMAL SALINE 50ML 50 ML IV SCH ×4 (05:12→23:59)
[2019-02-04] MEDS: oxyCODONE/APAP 7.5/325 1 TAB TABLET PO PRN ×4 (05:13→23:59)
[2019-02-04 07:15] VITALS: BP 105/67
[2019-02-04] MEDS: PANTOPRAZOLE IV PUSH 40 MG VIAL. IVP SCH (08:25)
[2019-02-04] MEDS: LACTOBACILLUS RHAMNOSUS GG 1 CAPSULE. PO SCH ×2 (08:26→20:45)
[2019-02-04] MEDS: LISINOPRIL 10 MG TABLET PO SCH (08:26)
--- NOTE | 2019-02-04 10:41 | PDOC ---
CARDIO Progress Notes Date and Time Date of Service 02/04/2019 Time of Evaluation 1020 Subjective Subjective: No Chest Pain, No shortness of breath, No Palpitations Vitals Vitals Vital Signs Date Time Temp Pulse Resp B/P (MAP) Pulse Ox O2 Delivery O2 Flow Rate FiO2 02/04/19 10:11 18 Room Air 02/04/19 08:26 77 105/67 02/04/19 07:15 97.7 94 97.7 02/03/19 18:00 0.5 Weight Weight [ ] Input and Output Intake and Output Intake and Output 02/04/19 07:00 Intake Total 930 ml Output Total 375 ml Balance 555 ml Intake Oral 930 ml Output Urine Total 300 ml Drainage Total 75 ml # Voids 2 Microbiology Micro Microbiology 01/31/19 Blood Culture - Preliminary, Resulted NO GROWTH AFTER 3 DAYS 01/31/19 Urine Culture - Final, Complete 01/31/19 Urine Culture Result 1 (LILY) - Final, Complete Physical Exam HEENT: Neck Supple W Full Motion Chest: Symmetric LUNGS: Clear to Auscultation Heart: S1S2, RRR (SR) Abdomen: Soft N/T Extremities: No Edema, No Calf Tenderness Neurology: alert, oriented, follow commands Assessment Assessment 1. Pelvic abscess with possible perf diverticulum: ID and gen surgery following, S/P drain. 3. Hypertension; marginal currently with underlying infection. 3. Methamphetamine use; UDS +, patient denies. 4. PAFIB: NEW. multifactorial with meth and GI issues. NO further runs of PVCs. Recommendations 1. ECASA 81 mg once OK with surgery. 2. DC lisinopril. BP possibly elevated initially due to pain. Allow meth washout, discussed with pt in regards to meth cessation and BB interaction 3. Moving forward he will need metoprolol and MCOT but possibly would not be able to pursue this due to limited financial means. 4. Encouraged to follow up in office. TTE today 5. Supportive care. JUVENCIO BARNES APRN Feb 04, 2019 10:41
[2019-02-04 11:15] VITALS: BP 124/82
--- NOTE | 2019-02-04 12:44 | CARD ---
MR#: [id number] Date of Study: 02/04/2019 Ordering Physician: SIXTO DIALLO, Referring Physician: ELOY SKINNER Tech: Chelita Barrios APPROVED REPORT EXAM: Two-dimensional and M-mode echocardiogram with Doppler and color Doppler. Other Information Quality : AverageHR: 85bpm INDICATION Hypertension/HCVD RISK FACTORS Smoking 2D DIMENSIONS RVDd3.6 (2.9-3.5cm)Left Atrium(2D)3.8 (1.6-4.0cm) IVSd1.4 (0.7-1.1cm)Aortic Root(2D)3.5 (2.0-3.7cm) LVDd5.1 (3.9-5.9cm)LVOT Diameter2.5 (1.8-2.4cm) PWd1.1 (0.7-1.1cm)LVDs3.3 (2.5-4.0cm) FS (%) 35.8 %SV79.6 ml Aortic Valve AoV Peak Paul.135.3cm/sAoV VTI20.5cm AO Peak GR.7.3mmHgLVOT Peak Paul.117.3cm/s LVOT VTI 20.80cmAO Mean GR.4mmHg JAKE (VMAX)3.07pr5PGJ (VTI)4.94cm2 Mitral Valve MV E Cgrdlckm09.4cm/sMV DECEL [id number] MV A Dtoyqect61.8cm/sMV OLI06fx E/A Ratio1.0MVA (PHT)2.57cm2 TDI E/Lateral E'7.2E/Medial E'12.2 Pulmonary Valve PV Peak Ofooqayv064.0cm/sPV Peak Grad.6mmHg Tricuspid Valve TR P. Ndfetbbi703cm/sRAP PHMACGLY1abYp TR Peak Gr.41jhNxYXVX50rwLa Pulmonary Vein S1 Hvkvevtp86.2cm/sD2 Cusbnwoq02.7cm/s PVa [id number] LEFT VENTRICLE The left ventricle is normal size. There is mild concentric left ventricular hypertrophy. The left ve ntricular systolic function is normal and the ejection fraction is within normal range. The Ejection Fraction is 55-60%. There is normal LV segmental wall motion. Transmitral Doppler flow pattern is Gra de I-abnormal relaxation pattern. RIGHT VENTRICLE The right ventricle is normal size. There is normal right ventricular wall thickness. The right ventr icular systolic function is normal. ATRIA The left atrium size is normal. The right atrium size is normal. The interatrial septum is intact wit h no evidence for an atrial septal defect or patent foramen ovale as noted on 2-D or Doppler imaging. AORTIC VALVE The aortic valve is normal in structure and function. Doppler and Color Flow revealed no significant aortic regurgitation. There is no significant aortic valvular stenosis. MITRAL VALVE The mitral valve is thickened but opens well. There is no evidence of mitral valve prolapse. There is no mitral valve stenosis. Doppler and Color-flow revealed trace mitral regurgitation. TRICUSPID VALVE The tricuspid valve is normal in structure and function. Doppler and Color Flow revealed trace tricus pid regurgitation with an estimated PAP of 34 mmHg. There is no tricuspid valve stenosis. PULMONIC VALVE The pulmonic valve is not well visualized. Doppler and Color Flow revealed trace pulmonic valvular re gurgitation. GREAT VESSELS The aortic root is normal in size. The IVC is normal in size and collapses >50% with inspiration. PERICARDIAL EFFUSION There is no evidence of significant pericardial effusion. Critical Notification Critical Value: No <Conclusion> The left ventricle is normal size. The left ventricular systolic function is normal and the ejection fraction is within normal range. The Ejection Fraction is 55-60%. There is mild concentric left ventricular hypertrophy. There is no significant aortic valvular stenosis. Doppler and Color Flow revealed no significant aortic regurgitation. Doppler and Color-flow revealed trace mitral regurgitation. Doppler and Color Flow revealed trace tricuspid regurgitation with an estimated PAP of 34 mmHg. Signed by : Roe Gifford MD Electronically Approved : 02/04/2019 12:44:11
--- NOTE | 2019-02-04 14:08 | PDOC ---
Infectious Disease Note Subjective Subjective awake, feeling much better after abscess drained ROS ROS no n/v/d/sob/ did have fever Vital Sign Vital Signs Vital Signs Date Time Temp Pulse Resp B/P (MAP) Pulse Ox O2 Delivery O2 Flow Rate FiO2 02/04/19 11:15 98.5 83 20 124/82 (96) 96 Room Air 98.5 02/03/19 18:00 0.5 Physical Exam PHYSICAL EXAM GENERAL: Lying down, relaxed appearance HEENT: Pupils equally round. Normal conjunctivae. Oral cavity pink and moist. NECK: Supple. LUNGS: Clear to auscultation. HEART: S1 and S2. ABDOMEN: Obese, soft and mildly tender with bowel sounds present. EXTREMITIES: No gross edema or cyanosis. SKIN: Warm without rash. NEUROLOGIC: Alert and oriented times 3. PIV Labs Micro Microbiology 01/31/19 Blood Culture - Preliminary, Resulted NO GROWTH AFTER 2 DAYS 01/31/19 Urine Culture - Final, Complete 01/31/19 Urine Culture Result 1 (LILY) - Final, Complete Objective Assessment Sepsis Pelvic abscess measuring 5.1 x 3.4 cm and contains considerable surrounding inflammation. s/p drainage ? perforated diverticulitis Urine tox positive for meth. Patient denies drug use. Plan Plan of Care Zosyn and zyvox check cultures Gen surgery following Monitor WBC/temp Pain management per primary ANDERSON BOLIVAR MD Feb 04, 2019 14:08
--- NOTE | 2019-02-04 14:40 | PDOC ---
SURGICAL PROGRESS NOTE Subjective Pt feels better after drain placed, some soreness Vital Signs Vital Signs Date Time Temp Pulse Resp B/P (MAP) Pulse Ox O2 Delivery O2 Flow Rate FiO2 02/04/19 11:15 98.5 83 20 124/82 (96) 96 Room Air 98.5 02/03/19 18:00 0.5 I&O Intake and Output 02/04/19 07:00 Intake Total 930 ml Output Total 375 ml Balance 555 ml Intake Oral 930 ml Output Urine Total 300 ml Drainage Total 75 ml # Voids 2 General: Alert, Oriented X3, Cooperative, No acute distress Abdomen: Soft, No tenderness, Other (drain with purulent drainage) Problem List Problems Medical Problems: (1) Abscess of pelvis Status: Acute (2) Elevated blood pressure reading without diagnosis of hypertension Status: Acute (3) Methamphetamine abuse Status: Acute (4) SIRS (systemic inflammatory response syndrome) Status: Acute Assessment/Plan abd abscess cont drain and abx. no immediate surgical plans. AMELIA YAN MD Feb 04, 2019 14:40
[2019-02-04] MEDS: NICOTINE 21MG PATCH. TD PRN (14:55)
[2019-02-04 15:00] VITALS: BP 130/85
[2019-02-04] MEDS: ENOXAPARIN 40 MG/0.4 ML SYRINGE. SQ SCH (16:00)
[2019-02-04 19:00] VITALS: BP 153/88
--- NOTE | 2019-02-04 20:09 | PDOC ---
PROGRESS NOTES Chief Complaint Chief Complaint acute abdomen pain perforated diverticulum sepsis substance abuse History of Present Illness History of Present Illness broad iv abx advance diet drain exudate looks more clear today is translucent now pain better ID and gen surg following, IV abd PO pain meds Vitals Vitals Vital Signs Date Time Temp Pulse Resp B/P (MAP) Pulse Ox O2 Delivery O2 Flow Rate FiO2 02/04/19 18:44 17 Room Air 02/04/19 15:00 98.4 84 130/85 (100) 95 98.4 02/03/19 18:00 0.5 Physical Exam Physical Exam GENERAL: Lying down, relaxed appearance HEENT: LUNGS: Clear to auscultation. HEART: S1 and S2. SKIN: Warm without rash. NEUROLOGIC: Alert and oriented times 3. PIV General: Alert, Oriented X3, Cooperative, No acute distress Heart: Regular rate, Normal S1, Normal S2 Lungs: Clear Abdomen: Soft, No tenderness, Other (drain with purulent drainage) Extremities: No clubbing, No cyanosis Skin: No rashes, No breakdown Assessment and Plan Assessmemt and Plan Problems Medical Problems: (1) Abscess of pelvis Status: Acute (2) Elevated blood pressure reading without diagnosis of hypertension Status: Acute (3) Methamphetamine abuse Status: Acute (4) SIRS (systemic inflammatory response syndrome) Status: Acute Comment Review of Relevant I have reviewed the following items ted (where applicable) has been applied. Labs Microbiology 01/31/19 Blood Culture - Preliminary, Resulted NO GROWTH AFTER 3 DAYS 01/31/19 Urine Culture - Final, Complete 01/31/19 Urine Culture Result 1 (LILY) - Final, Complete 02/03/19 Anaerobic/Aerobic Culture, Resulted Pending 02/03/19 Anaerobic Culture Result 1 (LILY), Resulted Pending 02/03/19 Aerobic Culture, Resulted Pending 02/03/19 Aerobic Culture Result 1 (LILY), Resulted Pending 02/03/19 Gram Stain - Final, Resulted 02/03/19 Gram Stain Result 1 (LILY) - Final, Resulted 02/03/19 Gram Stain Result 2 (LILY) - Final, Resulted 02/03/19 Gram Stain Result 3 (LILY) - Final, Resulted Medications Current Medications Sodium Chloride 1,000 ml @ 1,000 mls/hr Q1H IV Last administered on 01/31/19at 20:42; Start 01/31/19 at 20:12; Stop 01/31/19 at 21:11; Status DC Fentanyl Citrate (Fentanyl 2ml Vial) 50 mcg 1X ONCE IV Last administered on 01/31/19 20:49; Start 01/31/19 at 20:45; Stop 01/31/19 at 20:46; Status DC Ondansetron HCl (Zofran) 4 mg 1X ONCE IV Last administered on 01/31/19at 20:49; Start 01/31/19 at 20:45; Stop 01/31/19 at 20:46; Status DC Morphine Sulfate (Morphine Sulfate) 4 mg 1X ONCE IV Last administered on 01/31/19 23:01; Start 01/31/19 at 23:00; Stop 01/31/19 at 23:01; Status DC Piperacillin Sod/ Tazobactam Sod 3.375 gm/Sodium Chloride 50 ml @ 100 mls/hr 1X ONCE IV Last administered on 01/31/19at 23:52; Start 01/31/19 at 23:00; Stop 01/31/19 at 23:29; Status DC Metronidazole 100 ml @ 100 mls/hr Q8HRS IV Last administered on 02/01/19at 14:17; Start 02/01/19 at 06:00; Stop 02/01/19 at 14:27; Status DC Metronidazole 100 ml @ 100 mls/hr 1X ONCE IV Last administered on 01/31/19at 23:03; Start 01/31/19 at 23:00; Stop 01/31/19 at 23:59; Status DC Vancomycin HCl 250 ml @ 250 mls/hr 1X ONCE IV ; Start 01/31/19 at 22:45; Stop 01/31/19 at 23:44; Status UNV Sodium Chloride 1,000 ml @ 1,000 mls/hr 1X ONCE IV Last administered on 01/31/19at 23:02; Start 01/31/19 at 23:00; Stop 01/31/19 at 23:59; Status DC Vancomycin HCl (Vanco Per Pharmacy) 1 each PRN DAILY PRN MC SEE COMMENTS Last administered on 02/01/19at 13:44; Start 01/31/19 at 22:45; Stop 02/01/19 at 14:31; Status DC Vancomycin HCl 2 gm/Sodium Chloride 500 ml @ 250 mls/hr 1X ONCE IV Last administered on 02/01/19 00:23; Start 01/31/19 at 23:00; Stop 02/01/19 at 00:59; Status DC Ondansetron HCl (Zofran) 4 mg PRN Q8HRS PRN IV NAUSEA/VOMITING 1ST CHOICE Last administered on 01/31/19 23:01; Start 01/31/19 at 22:45; Stop 02/01/19 at 22:44; Status DC Morphine Sulfate (Morphine Sulfate) 4 mg PRN Q4HRS PRN IV SEVERE PAIN Last administered on 02/01/19at 19:50; Start 01/31/19 at 22:45; Stop 02/01/19 at 22:44; Status DC Piperacillin Sod/ Tazobactam Sod 3.375 gm/Sodium Chloride 50 ml @ 100 mls/hr Q6HRS IV Last administered on 02/01/19 05:55; Start 02/01/19 at 06:00; Stop 02/01/19 at 06:02; Status DC Vancomycin HCl 1.5 gm/Sodium Chloride 500 ml @ 250 mls/hr Q8H IV Last administered on 02/01/19 08:31; Start 02/01/19 at 09:00; Stop 02/01/19 at 14:31; Status DC Vancomycin HCl (Vancomycin Trough Level) 1 each 1X ONCE MC ; Start 02/02/19 at 00:30; Stop 02/02/19 at 00:30; Status DC Enoxaparin Sodium (Lovenox 40mg Syringe) 40 mg Q24H SQ Last administered on 02/04/19 16:00; Start 02/01/19 at 16:00 Pantoprazole Sodium (PROTONIX VIAL for IV PUSH) 40 mg DAILYAC IVP Last administered on 02/04/19 08:25; Start 02/01/19 at 15:00 Morphine Sulfate (Morphine Sulfate) 4 mg PRN Q4HRS PRN IV SEVERE PAIN Last administered on 02/04/19 02:39; Start 02/02/19 at 00:30 Piperacillin Sod/ Tazobactam Sod 3.375 gm/Sodium Chloride 50 ml @ 100 mls/hr Q6HRS IV Last administered on 02/04/19 18:45; Start 02/02/19 at 12:00 Acetaminophen (Tylenol) 650 mg PRN Q6HRS PRN PO FEVER Last administered on 02/03/19at 19:56; Start 02/02/19 at 19:45 Labetalol HCl (Normodyne Iv Push) 10 mg PRN Q2HR PRN IVP HYPERTENSION, SEE COMMENTS Last administered on 02/02/19at 23:53; Start 02/02/19 at 23:30; Stop 02/03/19 at 13:48; Status DC Labetalol HCl (Normodyne Iv Push) 20 mg PRN Q2HR PRN IVP HYPERTENSION, SEE COMMENTS Last administered on 02/03/19at 17:33; Start 02/03/19 at 01:30 Hydralazine HCl (Apresoline Inj) 10 mg PRN Q4HRS PRN IVP ELEVATED BP, SEE COMMENTS Last administered on 02/03/19at 01:42; Start 02/03/19 at 01:30 Lisinopril (Prinivil) 10 mg DAILY PO Last administered on 02/04/19at 08:26; Start 02/03/19 at 12:00; Stop 02/04/19 at 10:43; Status DC Lidocaine/Sodium Bicarbonate (Buffered Lidocaine 1%) 3 ml STK-MED ONCE .ROUTE ; Start 02/03/19 at 12:08; Stop 02/03/19 at 12:09; Status DC Midazolam HCl (Versed) 2 mg STK-MED ONCE .ROUTE ; Start 02/03/19 at 12:09; Stop 02/03/19 at 12:10; Status DC Fentanyl Citrate (Fentanyl 2ml Vial) 100 mcg STK-MED ONCE .ROUTE ; Start 02/03/19 at 12:10; Stop 02/03/19 at 12:11; Status DC Lidocaine/Sodium Bicarbonate (Buffered Lidocaine 1%) 3 ml 1X ONCE IJ Last administered on 02/03/19at 12:30; Start 02/03/19 at 12:30; Stop 02/03/19 at 12:31; Status DC Midazolam HCl (Versed) 2 mg 1X ONCE IV Last administered on 02/03/19at 12:30; Start 02/03/19 at 12:30; Stop 02/03/19 at 12:31; Status DC Fentanyl Citrate (Fentanyl 2ml Vial) 100 mcg 1X ONCE IV Last administered on 02/03/19at 12:30; Start 02/03/19 at 12:30; Stop 02/03/19 at 12:31; Status DC Oxycodone/ Acetaminophen (Percocet 7.5/ 325) 1 tab PRN Q4HRS PRN PO SEVERE PAIN Last administered on 02/04/19at 18:44; Start 02/03/19 at 13:45 Lactobacillus Rhamnosus (Culturelle) 1 cap BID PO Last administered on 02/04/19 08:26; Start 02/03/19 at 21:00 Linezolid/Dextrose 300 ml @ 300 mls/hr Q12HR IV Last administered on 02/04/19 08:27; Start 02/03/19 at 21:00 Nicotine (Nicoderm Cq 21mg) 1 patch PRN DAILY PRN TD SMOKING CESSATION Last administered on 02/04/19at 14:55; Start 02/03/19 at 21:45 Active Scripts Active Ibuprofen 600 Mg Tablet 600 Mg PO PRN Q6HRS PRN Vitals/I & O Vital Sign - Last 24 Hours 02/03/19 02/03/19 02/04/19 02/04/19 23:09 23:16 02:39 03:09 Temp 98.7 98.7 Pulse 94 Resp 20 18 16 B/P (MAP) 90/63 (72) Pulse Ox 94 94 94 94 O2 Delivery Room Air Room Air Room Air Room Air 02/04/19 02/04/19 02/04/19 02/04/19 03:37 05:13 06:13 07:15 Temp 98.0 97.7 98.0 97.7 Pulse 85 77 Resp 18 16 18 B/P (MAP) 120/79 (93) 105/67 (80) Pulse Ox 94 94 94 94 O2 Delivery Room Air Room Air Room Air 02/04/19 02/04/19 02/04/19 02/04/19 08:00 08:26 10:11 11:11 Pulse 77 Resp 18 17 B/P (MAP) 105/67 O2 Delivery Room Air Room Air Room Air 02/04/19 02/04/19 02/04/19 11:15 15:00 18:44 Temp 98.5 98.4 98.5 98.4 Pulse 83 84 Resp 20 20 17 B/P (MAP) 124/82 (96) 130/85 (100) Pulse Ox 96 95 O2 Delivery Room Air Room Air Room Air Intake and Output 02/03/19 02/03/19 02/04/19 15:00 23:00 07:00 Intake Total 450 ml 480 ml Output Total 300 ml 60 ml 15 ml Balance 150 ml -60 ml 465 ml ELOY SKINNER MD Feb 04, 2019 20:09
[2019-02-04 22:47] VITALS: BP 177/94
[2019-02-05 03:00] VITALS: BP 157/91
[2019-02-05] MEDS: PIPERACILLIN/TAZOBACTAM 3.375 GM in IV NORMAL SALINE 50ML 50 ML IV SCH ×3 (05:18→18:00)
[2019-02-05] MEDS: MORPHINE SULFATE 4 MG/ML VIAL. IV PRN ×2 (05:19→23:10)
[2019-02-05 07:00] VITALS: BP 162/99
[2019-02-05] MEDS: LACTOBACILLUS RHAMNOSUS GG 1 CAPSULE. PO SCH ×2 (08:25→21:27)
[2019-02-05] MEDS: PANTOPRAZOLE 40 MG TABLET.DR. PO SCH (08:25)
[2019-02-05] MEDS: oxyCODONE/APAP 7.5/325 1 TAB TABLET PO PRN ×3 (10:02→21:27)
[2019-02-05] MEDS: CARVEDILOL 6.25 MG TABLET. PO SCH ×2 (10:02→16:59)
[2019-02-05 10:12] LABS: ALBUMIN 2.1 g/dL (3.4-5.0); ALBUMIN/GLOBULIN RATIO 0.5 (1.0-1.7); CALCIUM 8.2 mg/dL (8.5-10.1); CREATININE 1.3 mg/dL (0.7-1.3); GFR 57.1; POTASSIUM 3.5 mmol/L (3.5-5.1); TOTAL BILIRUBIN 0.8 mg/dL (0.2-1.0); TOTAL PROTEIN 6.1 g/dL (6.4-8.2)
[2019-02-05 10:24] LABS: BASO % 0 % (0-3); EOS # 0.2 x10^3/uL (0.0-0.7); EOS % 3 % (0-3); HEMATOCRIT 35.7 % (39.0-53.0); HEMOGLOBIN 11.8 g/dL (13.0-17.5); LYMPH # 1.3 x10^3/uL (1.0-4.8); LYMPH % 14 % (24-48); MEAN CORPUSCULAR HEMOGLOBIN 28 pg (25-35); MEAN CORPUSCULAR HGB CONC 33 g/dL (31-37); MEAN CORPUSCULAR VOLUME 85 fL (79-100); MONO # 0.9 x10^3/uL (0.0-1.1); MONO % 10 % (0-9); NEUT # 6.7 x10^3uL (1.8-7.7); NEUT % 74 % (31-73); PLATELET COUNT 350 x10^3/uL (140-400); RED BLOOD COUNT 4.23 x10^6/uL (4.30-5.70); RED CELL DISTRIBUTION WIDTH 14.7 % (11.5-14.5); WHITE BLOOD COUNT 9.1 x10^3/uL (4.0-11.0)
[2019-02-05 10:37] VITALS: BP 165/98
--- NOTE | 2019-02-05 12:14 | PDOC ---
Infectious Disease Note Subjective Subjective awake, feeling much better after abscess drained ROS ROS no n/v/d/ Vital Sign Vital Signs Vital Signs Date Time Temp Pulse Resp B/P (MAP) Pulse Ox O2 Delivery O2 Flow Rate FiO2 02/05/19 11:02 Room Air 02/05/19 10:37 98.1 91 19 165/98 (120) 95 98.1 Physical Exam PHYSICAL EXAM GENERAL: Lying down, relaxed appearance HEENT: nad LUNGS: Clear to auscultation. HEART: S1 and S2. SKIN: Warm without rash. NEUROLOGIC: Alert and oriented times 3. PIV Labs Lab Laboratory Tests Test 02/05/19 09:25 White Blood Count 9.1 x10^3/uL (4.0-11.0) Red Blood Count 4.23 x10^6/uL (4.30-5.70) Hemoglobin 11.8 g/dL (13.0-17.5) Hematocrit 35.7 % (39.0-53.0) Mean Corpuscular Volume 85 fL (79-100) Mean Corpuscular Hemoglobin 28 pg (25-35) Mean Corpuscular Hemoglobin Concent 33 g/dL (31-37) Red Cell Distribution Width 14.7 % (11.5-14.5) Platelet Count 350 x10^3/uL (140-400) Neutrophils (%) (Auto) 74 % (31-73) Lymphocytes (%) (Auto) 14 % (24-48) Monocytes (%) (Auto) 10 % (0-9) Eosinophils (%) (Auto) 3 % (0-3) Basophils (%) (Auto) 0 % (0-3) Neutrophils # (Auto) 6.7 x10^3uL (1.8-7.7) Lymphocytes # (Auto) 1.3 x10^3/uL (1.0-4.8) Monocytes # (Auto) 0.9 x10^3/uL (0.0-1.1) Eosinophils # (Auto) 0.2 x10^3/uL (0.0-0.7) Basophils # (Auto) 0.0 x10^3/uL (0.0-0.2) Sodium Level 138 mmol/L (136-145) Potassium Level 3.5 mmol/L (3.5-5.1) Chloride Level 101 mmol/L (98-107) Carbon Dioxide Level 28 mmol/L (21-32) Anion Gap 9 (6-14) Blood Urea Nitrogen 15 mg/dL (8-26) Creatinine 1.3 mg/dL (0.7-1.3) Estimated GFR (Cockcroft-Gault) 57.1 BUN/Creatinine Ratio 12 (6-20) Glucose Level 121 mg/dL (70-99) Calcium Level 8.2 mg/dL (8.5-10.1) Total Bilirubin 0.8 mg/dL (0.2-1.0) Aspartate Amino Transf (AST/SGOT) 20 U/L (15-37) Alanine Aminotransferase (ALT/SGPT) 34 U/L (16-63) Alkaline Phosphatase 131 U/L (46-116) Total Protein 6.1 g/dL (6.4-8.2) Albumin 2.1 g/dL (3.4-5.0) Albumin/Globulin Ratio 0.5 (1.0-1.7) Micro ANAEROBIC-AEROBIC CULTURE PENDING ANAEROBIC RES 1 PENDING AEROBIC CULT PENDING AEROBIC RES 1 PENDING GRAM STAIN Final Final report GRAM STAIN RES 1 Final Comment No white blood cells seen. GRAM STAIN RES 2 Final Gram positive cocci Rare seen GRAM STAIN RES 3 Final Comment Rare gram negative rods. Performed at: - [facility] [id number], [place], [place] [id number] [employer] Professor: AFTAB Moralez MD, Phone: [phone] Objective Assessment Sepsis Pelvic abscess measuring 5.1 x 3.4 cm and contains considerable surrounding inflammation. s/p drainage ? perforated diverticulitis Urine tox positive for meth. Patient denies drug use. Plan Plan of Care Zosyn and zyvox check cultures Gen surgery following Monitor WBC/temp ANDERSON BOLIVAR MD February 05, 2019 12:14
--- NOTE | 2019-02-05 12:21 | PDOC ---
SURGICAL PROGRESS NOTE Subjective Doing well, no complaints Vital Signs Vital Signs Date Time Temp Pulse Resp B/P (MAP) Pulse Ox O2 Delivery O2 Flow Rate FiO2 02/05/19 11:02 Room Air 02/05/19 10:37 98.1 91 19 165/98 (120) 95 98.1 I&O Intake and Output 02/05/19 07:00 Intake Total 700 ml Output Total 910 ml Balance -210 ml Intake Oral 700 ml Output Urine Total 900 ml Drainage Total 10 ml # Voids 1 PATIENT HAS A LUKE: No General: Alert, Oriented X3, Cooperative, mild distress Abdomen: Normal bowel sounds, Soft, Other (HUMA with minimal serous output, mild drian site pain) Labs Laboratory Tests Test 02/05/19 09:25 White Blood Count 9.1 x10^3/uL (4.0-11.0) Red Blood Count 4.23 x10^6/uL (4.30-5.70) Hemoglobin 11.8 g/dL (13.0-17.5) Hematocrit 35.7 % (39.0-53.0) Mean Corpuscular Volume 85 fL (79-100) Mean Corpuscular Hemoglobin 28 pg (25-35) Mean Corpuscular Hemoglobin Concent 33 g/dL (31-37) Red Cell Distribution Width 14.7 % (11.5-14.5) Platelet Count 350 x10^3/uL (140-400) Neutrophils (%) (Auto) 74 % (31-73) Lymphocytes (%) (Auto) 14 % (24-48) Monocytes (%) (Auto) 10 % (0-9) Eosinophils (%) (Auto) 3 % (0-3) Basophils (%) (Auto) 0 % (0-3) Neutrophils # (Auto) 6.7 x10^3uL (1.8-7.7) Lymphocytes # (Auto) 1.3 x10^3/uL (1.0-4.8) Monocytes # (Auto) 0.9 x10^3/uL (0.0-1.1) Eosinophils # (Auto) 0.2 x10^3/uL (0.0-0.7) Basophils # (Auto) 0.0 x10^3/uL (0.0-0.2) Sodium Level 138 mmol/L (136-145) Potassium Level 3.5 mmol/L (3.5-5.1) Chloride Level 101 mmol/L (98-107) Carbon Dioxide Level 28 mmol/L (21-32) Anion Gap 9 (6-14) Blood Urea Nitrogen 15 mg/dL (8-26) Creatinine 1.3 mg/dL (0.7-1.3) Estimated GFR (Cockcroft-Gault) 57.1 BUN/Creatinine Ratio 12 (6-20) Glucose Level 121 mg/dL (70-99) Calcium Level 8.2 mg/dL (8.5-10.1) Total Bilirubin 0.8 mg/dL (0.2-1.0) Aspartate Amino Transf (AST/SGOT) 20 U/L (15-37) Alanine Aminotransferase (ALT/SGPT) 34 U/L (16-63) Alkaline Phosphatase 131 U/L (46-116) Total Protein 6.1 g/dL (6.4-8.2) Albumin 2.1 g/dL (3.4-5.0) Albumin/Globulin Ratio 0.5 (1.0-1.7) Laboratory Tests Test 02/05/19 09:25 White Blood Count 9.1 x10^3/uL (4.0-11.0) Red Blood Count 4.23 x10^6/uL (4.30-5.70) Hemoglobin 11.8 g/dL (13.0-17.5) Hematocrit 35.7 % (39.0-53.0) Mean Corpuscular Volume 85 fL (79-100) Mean Corpuscular Hemoglobin 28 pg (25-35) Mean Corpuscular Hemoglobin Concent 33 g/dL (31-37) Red Cell Distribution Width 14.7 % (11.5-14.5) Platelet Count 350 x10^3/uL (140-400) Neutrophils (%) (Auto) 74 % (31-73) Lymphocytes (%) (Auto) 14 % (24-48) Monocytes (%) (Auto) 10 % (0-9) Eosinophils (%) (Auto) 3 % (0-3) Basophils (%) (Auto) 0 % (0-3) Neutrophils # (Auto) 6.7 x10^3uL (1.8-7.7) Lymphocytes # (Auto) 1.3 x10^3/uL (1.0-4.8) Monocytes # (Auto) 0.9 x10^3/uL (0.0-1.1) Eosinophils # (Auto) 0.2 x10^3/uL (0.0-0.7) Basophils # (Auto) 0.0 x10^3/uL (0.0-0.2) Sodium Level 138 mmol/L (136-145) Potassium Level 3.5 mmol/L (3.5-5.1) Chloride Level 101 mmol/L (98-107) Carbon Dioxide Level 28 mmol/L (21-32) Anion Gap 9 (6-14) Blood Urea Nitrogen 15 mg/dL (8-26) Creatinine 1.3 mg/dL (0.7-1.3) Estimated GFR (Cockcroft-Gault) 57.1 BUN/Creatinine Ratio 12 (6-20) Glucose Level 121 mg/dL (70-99) Calcium Level 8.2 mg/dL (8.5-10.1) Total Bilirubin 0.8 mg/dL (0.2-1.0) Aspartate Amino Transf (AST/SGOT) 20 U/L (15-37) Alanine Aminotransferase (ALT/SGPT) 34 U/L (16-63) Alkaline Phosphatase 131 U/L (46-116) Total Protein 6.1 g/dL (6.4-8.2) Albumin 2.1 g/dL (3.4-5.0) Albumin/Globulin Ratio 0.5 (1.0-1.7) Problem List Problems Medical Problems: (1) Abscess of pelvis Status: Acute (2) Elevated blood pressure reading without diagnosis of hypertension Status: Acute (3) Methamphetamine abuse Status: Acute (4) SIRS (systemic inflammatory response syndrome) Status: Acute Assessment/Plan s/p IR Drain of pelvic abscess Improving Continue supportive care SUNDAR MEJIA MD February 05, 2019 12:21
[2019-02-05 14:28] VITALS: BP 163/104
[2019-02-05] MEDS: ENOXAPARIN 40 MG/0.4 ML SYRINGE. SQ SCH (16:59)
[2019-02-05 19:00] VITALS: BP 168/100
[2019-02-05 23:00] VITALS: BP 154/89
[2019-02-06] MEDS: PIPERACILLIN/TAZOBACTAM 3.375 GM in IV NORMAL SALINE 50ML 50 ML IV SCH ×5 (01:13→23:58)
[2019-02-06 03:00] VITALS: BP 148/100
[2019-02-06] MEDS: MORPHINE SULFATE 4 MG/ML VIAL. IV PRN ×2 (03:17→07:28)
[2019-02-06 07:20] VITALS: BP 180/102
[2019-02-06] MEDS: PANTOPRAZOLE 40 MG TABLET.DR. PO SCH (07:29)
[2019-02-06] MEDS: CARVEDILOL 6.25 MG TABLET. PO SCH ×2 (07:33→16:30)
[2019-02-06] MEDS: LACTOBACILLUS RHAMNOSUS GG 1 CAPSULE. PO SCH ×2 (09:05→20:56)
[2019-02-06] MEDS: oxyCODONE/APAP 7.5/325 1 TAB TABLET PO PRN ×3 (09:06→23:18)
--- NOTE | 2019-02-06 10:15 | NUR ---
Patient arrived on the floor via bed from the 6th floor. Patient was oriented to the room and advised to use call light if in need of anything.
[2019-02-06 10:25] VITALS: BP 144/78
--- NOTE | 2019-02-06 11:20 | PDOC ---
Infectious Disease Note Subjective Subjective awake, feeling much better after abscess drained ROS ROS no n/v/d/ Vital Sign Vital Signs Vital Signs Date Time Temp Pulse Resp B/P (MAP) Pulse Ox O2 Delivery O2 Flow Rate FiO2 02/06/19 10:30 16 Room Air 02/06/19 10:25 98.5 81 144/78 (100) 93 98.5 02/06/19 09:07 4.0 Physical Exam PHYSICAL EXAM GENERAL: Lying down, relaxed appearance HEENT: nad LUNGS: Clear to auscultation. HEART: S1 and S2. SKIN: Warm without rash. NEUROLOGIC: Alert and oriented times 3. PIV Labs Micro ANAEROBIC-AEROBIC CULTURE PENDING ANAEROBIC RES 1 PENDING AEROBIC CULT PENDING AEROBIC RES 1 PENDING GRAM STAIN Final Final report GRAM STAIN RES 1 Final Comment No white blood cells seen. GRAM STAIN RES 2 Final Gram positive cocci Rare seen GRAM STAIN RES 3 Final Comment Rare gram negative rods. Performed at: DA - [facility] [address], [place], [place] [id number] Objective Assessment Sepsis Pelvic abscess measuring 5.1 x 3.4 cm and contains considerable surrounding inflammation. s/p drainage ? perforated diverticulitis Urine tox positive for meth. Patient denies drug use. Plan Plan of Care Zosyn and zyvox check cultures Gen surgery following Monitor WBC/temp ANDERSON BOLIVAR MD February 06, 2019 11:19
--- NOTE | 2019-02-06 13:15 | PDOC ---
ROCIO KEYES CAN PUSHER 02/06/19 1315: SURGICAL PROGRESS NOTE Subjective pain is improved still some lower abdomen tolerating diet Vital Signs Vital Signs Date Time Temp Pulse Resp B/P (MAP) Pulse Ox O2 Delivery O2 Flow Rate FiO2 02/06/19 10:30 16 Room Air 02/06/19 10:25 98.5 81 144/78 (100) 93 98.5 02/06/19 09:07 4.0 I&O Intake and Output 02/06/19 06:59 Intake Total 3140 ml Balance 3140 ml Intake Oral 3140 ml # Voids 7 General: Alert, Oriented X3, Cooperative, No acute distress Abdomen: Soft, Other (drain, purulent ) Labs Laboratory Tests Test 02/05/19 09:25 White Blood Count 9.1 x10^3/uL (4.0-11.0) Red Blood Count 4.23 x10^6/uL (4.30-5.70) Hemoglobin 11.8 g/dL (13.0-17.5) Hematocrit 35.7 % (39.0-53.0) Mean Corpuscular Volume 85 fL (79-100) Mean Corpuscular Hemoglobin 28 pg (25-35) Mean Corpuscular Hemoglobin Concent 33 g/dL (31-37) Red Cell Distribution Width 14.7 % (11.5-14.5) Platelet Count 350 x10^3/uL (140-400) Neutrophils (%) (Auto) 74 % (31-73) Lymphocytes (%) (Auto) 14 % (24-48) Monocytes (%) (Auto) 10 % (0-9) Eosinophils (%) (Auto) 3 % (0-3) Basophils (%) (Auto) 0 % (0-3) Neutrophils # (Auto) 6.7 x10^3uL (1.8-7.7) Lymphocytes # (Auto) 1.3 x10^3/uL (1.0-4.8) Monocytes # (Auto) 0.9 x10^3/uL (0.0-1.1) Eosinophils # (Auto) 0.2 x10^3/uL (0.0-0.7) Basophils # (Auto) 0.0 x10^3/uL (0.0-0.2) Sodium Level 138 mmol/L (136-145) Potassium Level 3.5 mmol/L (3.5-5.1) Chloride Level 101 mmol/L (98-107) Carbon Dioxide Level 28 mmol/L (21-32) Anion Gap 9 (6-14) Blood Urea Nitrogen 15 mg/dL (8-26) Creatinine 1.3 mg/dL (0.7-1.3) Estimated GFR (Cockcroft-Gault) 57.1 BUN/Creatinine Ratio 12 (6-20) Glucose Level 121 mg/dL (70-99) Calcium Level 8.2 mg/dL (8.5-10.1) Total Bilirubin 0.8 mg/dL (0.2-1.0) Aspartate Amino Transf (AST/SGOT) 20 U/L (15-37) Alanine Aminotransferase (ALT/SGPT) 34 U/L (16-63) Alkaline Phosphatase 131 U/L (46-116) Total Protein 6.1 g/dL (6.4-8.2) Albumin 2.1 g/dL (3.4-5.0) Albumin/Globulin Ratio 0.5 (1.0-1.7) Problem List Problems Medical Problems: (1) Abscess of pelvis Status: Acute (2) Elevated blood pressure reading without diagnosis of hypertension Status: Acute (3) Methamphetamine abuse Status: Acute (4) SIRS (systemic inflammatory response syndrome) Status: Acute Assessment/Plan abx, drain AMELIA YAN MD 02/06/19 1521: SURGICAL PROGRESS NOTE Assessment/Plan Pt seen and examined. Agree with Ms. Keyes's note Pt feels better, vicky diet abd soft, ND, NTTP cont abx and drain ROCIO KEYES CAN PUSHER February 06, 2019 13:15 AMELIA YAN MD February 06, 2019 15:21
--- NOTE | 2019-02-06 14:20 | PDOC ---
PROGRESS NOTES Chief Complaint Chief Complaint acute abdomen pain perforated diverticulum sepsis substance abuse History of Present Illness History of Present Illness broad iv abx advance diet drain exudate looks more clear today is translucent now pain better ID and gen surg following, IV abd PO pain meds Vitals Vitals Vital Signs Date Time Temp Pulse Resp B/P (MAP) Pulse Ox O2 Delivery O2 Flow Rate FiO2 02/06/19 10:30 16 Room Air 02/06/19 10:25 98.5 81 144/78 (100) 93 98.5 02/06/19 09:07 4.0 Physical Exam Physical Exam GENERAL: Lying down, relaxed appearance HEENT: nad LUNGS: Clear to auscultation. HEART: S1 and S2. SKIN: Warm without rash. NEUROLOGIC: Alert and oriented times 3. PIV General: Alert, Oriented X3, Cooperative, No acute distress Heart: Regular rate, Normal S1, Normal S2 Lungs: Clear Abdomen: Soft, Other (drain, purulent ) Extremities: No clubbing, No cyanosis, No edema Skin: No rashes, No breakdown Assessment and Plan Assessmemt and Plan Problems Medical Problems: (1) Abscess of pelvis Status: Acute (2) Elevated blood pressure reading without diagnosis of hypertension Status: Acute (3) Methamphetamine abuse Status: Acute (4) SIRS (systemic inflammatory response syndrome) Status: Acute Comment Review of Relevant I have reviewed the following items ted (where applicable) has been applied. Labs Laboratory Tests Test 02/05/19 09:25 White Blood Count 9.1 x10^3/uL (4.0-11.0) Red Blood Count 4.23 x10^6/uL (4.30-5.70) Hemoglobin 11.8 g/dL (13.0-17.5) Hematocrit 35.7 % (39.0-53.0) Mean Corpuscular Volume 85 fL (79-100) Mean Corpuscular Hemoglobin 28 pg (25-35) Mean Corpuscular Hemoglobin Concent 33 g/dL (31-37) Red Cell Distribution Width 14.7 % (11.5-14.5) Platelet Count 350 x10^3/uL (140-400) Neutrophils (%) (Auto) 74 % (31-73) Lymphocytes (%) (Auto) 14 % (24-48) Monocytes (%) (Auto) 10 % (0-9) Eosinophils (%) (Auto) 3 % (0-3) Basophils (%) (Auto) 0 % (0-3) Neutrophils # (Auto) 6.7 x10^3uL (1.8-7.7) Lymphocytes # (Auto) 1.3 x10^3/uL (1.0-4.8) Monocytes # (Auto) 0.9 x10^3/uL (0.0-1.1) Eosinophils # (Auto) 0.2 x10^3/uL (0.0-0.7) Basophils # (Auto) 0.0 x10^3/uL (0.0-0.2) Sodium Level 138 mmol/L (136-145) Potassium Level 3.5 mmol/L (3.5-5.1) Chloride Level 101 mmol/L (98-107) Carbon Dioxide Level 28 mmol/L (21-32) Anion Gap 9 (6-14) Blood Urea Nitrogen 15 mg/dL (8-26) Creatinine 1.3 mg/dL (0.7-1.3) Estimated GFR (Cockcroft-Gault) 57.1 BUN/Creatinine Ratio 12 (6-20) Glucose Level 121 mg/dL (70-99) Calcium Level 8.2 mg/dL (8.5-10.1) Total Bilirubin 0.8 mg/dL (0.2-1.0) Aspartate Amino Transf (AST/SGOT) 20 U/L (15-37) Alanine Aminotransferase (ALT/SGPT) 34 U/L (16-63) Alkaline Phosphatase 131 U/L (46-116) Total Protein 6.1 g/dL (6.4-8.2) Albumin 2.1 g/dL (3.4-5.0) Albumin/Globulin Ratio 0.5 (1.0-1.7) Microbiology 02/03/19 Blood Culture - Preliminary, Resulted NO GROWTH AFTER 2 DAYS 01/31/19 Urine Culture - Final, Complete 01/31/19 Urine Culture Result 1 (LILY) - Final, Complete 02/03/19 Anaerobic/Aerobic Culture, Resulted Pending 02/03/19 Anaerobic Culture Result 1 (LILY), Resulted Pending 02/03/19 Aerobic Culture - Final, Resulted 02/03/19 Aerobic Culture Result 1 (LILY) - Final, Resulted 02/03/19 Antimicrobic Susceptibility - Final, Resulted 02/03/19 Gram Stain - Final, Resulted 02/03/19 Gram Stain Result 1 (LILY) - Final, Resulted 02/03/19 Gram Stain Result 2 (LILY) - Final, Resulted 02/03/19 Gram Stain Result 3 (LILY) - Final, Resulted Medications Current Medications Sodium Chloride 1,000 ml @ 1,000 mls/hr Q1H IV Last administered on 01/31/19at 20:42; Start 01/31/19 at 20:12; Stop 01/31/19 at 21:11; Status DC Fentanyl Citrate (Fentanyl 2ml Vial) 50 mcg 1X ONCE IV Last administered on 01/31/19 20:49; Start 01/31/19 at 20:45; Stop 01/31/19 at 20:46; Status DC Ondansetron HCl (Zofran) 4 mg 1X ONCE IV Last administered on 01/31/19 20:49; Start 01/31/19 at 20:45; Stop 01/31/19 at 20:46; Status DC Morphine Sulfate (Morphine Sulfate) 4 mg 1X ONCE IV Last administered on 01/31at 23:01; Start 01/31/19 at 23:00; Stop 01/31/19 at 23:01; Status DC Piperacillin Sod/ Tazobactam Sod 3.375 gm/Sodium Chloride 50 ml @ 100 mls/hr 1X ONCE IV Last administered on 01/31/19at 23:52; Start 01/31/19 at 23:00; Stop 01/31/19 at 23:29; Status DC Metronidazole 100 ml @ 100 mls/hr Q8HRS IV Last administered on 02/01/19at 14:17; Start 02/01/19 at 06:00; Stop 02/01/19 at 14:27; Status DC Metronidazole 100 ml @ 100 mls/hr 1X ONCE IV Last administered on 01/31/19at 23:03; Start 01/31/19 at 23:00; Stop 01/31/19 at 23:59; Status DC Vancomycin HCl 250 ml @ 250 mls/hr 1X ONCE IV ; Start 01/31/19 at 22:45; Stop 01/31/19 at 23:44; Status UNV Sodium Chloride 1,000 ml @ 1,000 mls/hr 1X ONCE IV Last administered on 01/31/19at 23:02; Start 01/31/19 at 23:00; Stop 01/31/19 at 23:59; Status DC Vancomycin HCl (Vanco Per Pharmacy) 1 each PRN DAILY PRN MC SEE COMMENTS Last administered on 02/01/19at 13:44; Start 01/31/19 at 22:45; Stop 02/01/19 at 14:31; Status DC Vancomycin HCl 2 gm/Sodium Chloride 500 ml @ 250 mls/hr 1X ONCE IV Last administered on 02/01/19at 00:23; Start 01/31/19 at 23:00; Stop 02/01/19 at 00:59; Status DC Ondansetron HCl (Zofran) 4 mg PRN Q8HRS PRN IV NAUSEA/VOMITING 1ST CHOICE Last administered on 01/31/19at 23:01; Start 01/31/19 at 22:45; Stop 02/01/19 at 22:44; Status DC Morphine Sulfate (Morphine Sulfate) 4 mg PRN Q4HRS PRN IV SEVERE PAIN Last administered on 02/01/19at 19:50; Start 01/31/19 at 22:45; Stop 02/01/19 at 22:44; Status DC Piperacillin Sod/ Tazobactam Sod 3.375 gm/Sodium Chloride 50 ml @ 100 mls/hr Q6HRS IV Last administered on 02/01/19at 05:55; Start 02/01/19 at 06:00; Stop 02/01/19 at 06:02; Status DC Vancomycin HCl 1.5 gm/Sodium Chloride 500 ml @ 250 mls/hr Q8H IV Last administered on 02/01/19at 08:31; Start 02/01/19 at 09:00; Stop 02/01/19 at 14:31; Status DC Vancomycin HCl (Vancomycin Trough Level) 1 each 1X ONCE MC ; Start 02/02/19 at 00:30; Stop 02/02/19 at 00:30; Status DC Enoxaparin Sodium (Lovenox 40mg Syringe) 40 mg Q24H SQ Last administered on 02/05/19at 16:59; Start 02/01/19 at 16:00 Pantoprazole Sodium (PROTONIX VIAL for IV PUSH) 40 mg DAILYAC IVP Last administered on 02/04/19at 08:25; Start 02/01/19 at 15:00; Stop 02/04/19 at 20:25; Status DC Morphine Sulfate (Morphine Sulfate) 4 mg PRN Q4HRS PRN IV SEVERE PAIN Last administered on 02/06/19at 07:28; Start 02/02/19 at 00:30 Piperacillin Sod/ Tazobactam Sod 3.375 gm/Sodium Chloride 50 ml @ 100 mls/hr Q6HRS IV Last administered on 02/06/19at 11:59; Start 02/02/19 at 12:00 Acetaminophen (Tylenol) 650 mg PRN Q6HRS PRN PO FEVER Last administered on 02/03/19at 19:56; Start 02/02/19 at 19:45 Labetalol HCl (Normodyne Iv Push) 10 mg PRN Q2HR PRN IVP HYPERTENSION, SEE COMMENTS Last administered on 02/02/19at 23:53; Start 02/02/19 at 23:30; Stop 02/03/19 at 13:48; Status DC Labetalol HCl (Normodyne Iv Push) 20 mg PRN Q2HR PRN IVP HYPERTENSION, SEE COMMENTS Last administered on 02/03/19at 17:33; Start 02/03/19 at 01:30 Hydralazine HCl (Apresoline Inj) 10 mg PRN Q4HRS PRN IVP ELEVATED BP, SEE COMMENTS Last administered on 02/03/19at 01:42; Start 02/03/19 at 01:30 Lisinopril (Prinivil) 10 mg DAILY PO Last administered on 02/04/19at 08:26; Start 02/03/19 at 12:00; Stop 02/04/19 at 10:43; Status DC Lidocaine/Sodium Bicarbonate (Buffered Lidocaine 1%) 3 ml STK-MED ONCE .ROUTE ; Start 02/03/19 at 12:08; Stop 02/03/19 at 12:09; Status DC Midazolam HCl (Versed) 2 mg STK-MED ONCE .ROUTE ; Start 02/03/19 at 12:09; Stop 02/03/19 at 12:10; Status DC Fentanyl Citrate (Fentanyl 2ml Vial) 100 mcg STK-MED ONCE .ROUTE ; Start 02/03/19 at 12:10; Stop 02/03/19 at 12:11; Status DC Lidocaine/Sodium Bicarbonate (Buffered Lidocaine 1%) 3 ml 1X ONCE IJ Last administered on 02/03/19 12:30; Start 02/03/19 at 12:30; Stop 02/03/19 at 12:31; Status DC Midazolam HCl (Versed) 2 mg 1X ONCE IV Last administered on 02/03/19 12:30; Start 02/03/19 at 12:30; Stop 02/03/19 at 12:31; Status DC Fentanyl Citrate (Fentanyl 2ml Vial) 100 mcg 1X ONCE IV Last administered on 02/03/19 12:30; Start 02/03/19 at 12:30; Stop 02/03/19 at 12:31; Status DC Oxycodone/ Acetaminophen (Percocet 7.5/ 325) 1 tab PRN Q4HRS PRN PO SEVERE PAIN Last administered on 02/06/19 09:06; Start 02/03/19 at 13:45 Lactobacillus Rhamnosus (Culturelle) 1 cap BID PO Last administered on 02/06/19 09:05; Start 02/03/19 at 21:00 Linezolid/Dextrose 300 ml @ 300 mls/hr Q12HR IV Last administered on 02/06/19 09:07; Start 02/03/19 at 21:00 Nicotine (Nicoderm Cq 21mg) 1 patch PRN DAILY PRN TD SMOKING CESSATION Last administered on 02/04/19 14:55; Start 02/03/19 at 21:45 Pantoprazole Sodium (Protonix) 40 mg DAILYAC PO Last administered on 02/06/19 07:29; Start 02/05/19 at 07:30 Carvedilol (Coreg) 6.25 mg BIDWMEALS PO Last administered on 02/06/19 07:33; Start 02/05/19 at 08:30 Active Scripts Active Ibuprofen 600 Mg Tablet 600 Mg PO PRN Q6HRS PRN Vitals/I & O Vital Sign - Last 24 Hours 02/05/19 02/05/19 02/05/19 02/05/19 14:28 16:59 16:59 19:00 Temp 98.5 99.5 98.5 99.5 Pulse 81 81 90 Resp 18 16 B/P (MAP) 163/104 (123) 163/104 168/100 (122) Pulse Ox 97 96 O2 Delivery Room Air Room Air Room Air 02/05/19 02/06/19 02/06/19 02/06/19 23:00 03:00 07:20 07:28 Temp 99.1 98.0 98.3 99.1 98.0 98.3 Pulse 92 86 68 Resp 16 16 18 B/P (MAP) 154/89 (110) 148/100 (116) 180/102 (128) Pulse Ox 98 96 95 96 O2 Delivery Nasal Cannula Room Air Room Air Room Air O2 Flow Rate 4.0 4.0 02/06/19 02/06/19 02/06/19 02/06/19 07:33 09:06 09:07 10:25 Temp 98.5 98.5 Pulse 68 81 Resp 18 B/P (MAP) 180/102 144/78 (100) Pulse Ox 96 96 93 O2 Delivery Room Air Room Air Room Air O2 Flow Rate 4.0 4.0 02/06/19 10:30 Resp 16 O2 Delivery Room Air Intake and Output 02/05/19 02/05/19 02/06/19 14:59 22:59 06:59 Intake Total 1140 ml 800 ml 1200 ml Balance 1140 ml 800 ml 1200 ml SUNDAR COBB MD February 06, 2019 14:20
[2019-02-06 15:00] VITALS: BP 179/102
[2019-02-06] MEDS: ENOXAPARIN 40 MG/0.4 ML SYRINGE. SQ SCH (15:38)
[2019-02-06] MEDS: hydrALAZINE 20 MG/ML VIAL. IVP PRN (17:35)
[2019-02-06 20:00] VITALS: BP 173/100
[2019-02-06] MEDS: NICOTINE 21MG PATCH. TD PRN (20:04)
[2019-02-06 23:04] VITALS: BP 158/93
[2019-02-07 03:00] VITALS: BP 160/114
[2019-02-07] MEDS: oxyCODONE/APAP 7.5/325 1 TAB TABLET PO PRN ×4 (04:54→21:07)
[2019-02-07] MEDS: PIPERACILLIN/TAZOBACTAM 3.375 GM in IV NORMAL SALINE 50ML 50 ML IV SCH ×4 (06:06→23:51)
[2019-02-07 07:00] VITALS: BP 178/109
[2019-02-07] MEDS ORDERED: METOPROLOL TARTRATE 5 MG/5 ML VIAL. IVP PRN (08:30)
--- NOTE | 2019-02-07 09:48 | PDOC ---
SURGICAL PROGRESS NOTE Subjective resting tolerating diet Vital Signs Vital Signs Date Time Temp Pulse Resp B/P (MAP) Pulse Ox O2 Delivery O2 Flow Rate FiO2 02/07/19 07:00 97.6 78 16 178/109 (132) 97 Room Air 97.6 02/06/19 09:07 4.0 I&O Intake and Output 02/07/19 06:59 Intake Total 1595 ml Output Total 1800 ml Balance -205 ml Intake Oral 1420 ml Other 175 ml Output Urine Total 1800 ml # Voids 6 # Bowel Movements 1 General: Alert, Oriented X3, Cooperative, No acute distress Abdomen: Soft, Other (NTTP, drain in place) Problem List Problems Medical Problems: (1) Abscess of pelvis Status: Acute (2) Elevated blood pressure reading without diagnosis of hypertension Status: Acute (3) Methamphetamine abuse Status: Acute (4) SIRS (systemic inflammatory response syndrome) Status: Acute Assessment/Plan decreasing drain output continue abx consider repeat CT if drainage output stays low ROCIO KEYES APRN February 07, 2019 09:48
[2019-02-07] MEDS: LACTOBACILLUS RHAMNOSUS GG 1 CAPSULE. PO SCH ×2 (10:16→21:07)
[2019-02-07] MEDS: CARVEDILOL 6.25 MG TABLET. PO SCH ×2 (10:17→16:44)
[2019-02-07] MEDS: PANTOPRAZOLE 40 MG TABLET.DR. PO SCH (10:17)
--- NOTE | 2019-02-07 10:29 | PDOC ---
PROGRESS NOTES Chief Complaint Chief Complaint acute abdomen pain perforated diverticulum sepsis substance abuse History of Present Illness History of Present Illness broad iv abx advance diet drain exudate looks more clear today is translucent now pain better consider repeat CT if drainage output stays low ID and gen surg following, IV abd PO pain meds Vitals Vitals Vital Signs Date Time Temp Pulse Resp B/P (MAP) Pulse Ox O2 Delivery O2 Flow Rate FiO2 02/07/19 10:18 78 178/109 02/07/19 10:16 Room Air 02/07/19 07:00 97.6 16 97 97.6 02/06/19 09:07 4.0 Physical Exam Physical Exam GENERAL: Lying down, relaxed appearance HEENT: nad LUNGS: Clear to auscultation. HEART: S1 and S2. SKIN: Warm without rash. NEUROLOGIC: Alert and oriented times 3. PIV General: Alert, Oriented X3, Cooperative, No acute distress, mild distress Heart: Regular rate, Normal S1, Normal S2, No murmurs Lungs: Clear Abdomen: Soft, Other (NTTP, drain in place) Extremities: No clubbing, No cyanosis, No edema Skin: No rashes, No breakdown Assessment and Plan Assessmemt and Plan Problems Medical Problems: (1) Abscess of pelvis Status: Acute (2) Elevated blood pressure reading without diagnosis of hypertension Status: Acute (3) Methamphetamine abuse Status: Acute (4) SIRS (systemic inflammatory response syndrome) Status: Acute Comment Review of Relevant I have reviewed the following items ted (where applicable) has been applied. Labs Microbiology 02/03/19 Blood Culture - Preliminary, Resulted NO GROWTH AFTER 3 DAYS 01/31/19 Urine Culture - Final, Complete 01/31/19 Urine Culture Result 1 (LILY) - Final, Complete 02/03/19 Anaerobic/Aerobic Culture, Resulted Pending 02/03/19 Anaerobic Culture Result 1 (LILY), Resulted Pending 02/03/19 Aerobic Culture - Final, Resulted 02/03/19 Aerobic Culture Result 1 (LILY) - Final, Resulted 02/03/19 Antimicrobic Susceptibility - Final, Resulted 02/03/19 Gram Stain - Final, Resulted 02/03/19 Gram Stain Result 1 (LILY) - Final, Resulted 02/03/19 Gram Stain Result 2 (LILY) - Final, Resulted 02/03/19 Gram Stain Result 3 (LILY) - Final, Resulted Medications Current Medications Sodium Chloride 1,000 ml @ 1,000 mls/hr Q1H IV Last administered on 01/31/19at 20:42; Start 01/31/19 at 20:12; Stop 01/31/19 at 21:11; Status DC Fentanyl Citrate (Fentanyl 2ml Vial) 50 mcg 1X ONCE IV Last administered on 01/31/19at 20:49; Start 01/31/19 at 20:45; Stop 01/31/19 at 20:46; Status DC Ondansetron HCl (Zofran) 4 mg 1X ONCE IV Last administered on 01/31/19at 20:49; Start 01/31/19 at 20:45; Stop 01/31/19 at 20:46; Status DC Morphine Sulfate (Morphine Sulfate) 4 mg 1X ONCE IV Last administered on 01/31/19at 23:01; Start 01/31/19 at 23:00; Stop 01/31/19 at 23:01; Status DC Piperacillin Sod/ Tazobactam Sod 3.375 gm/Sodium Chloride 50 ml @ 100 mls/hr 1X ONCE IV Last administered on 01/31/19at 23:52; Start 01/31/19 at 23:00; Stop 01/31/19 at 23:29; Status DC Metronidazole 100 ml @ 100 mls/hr Q8HRS IV Last administered on 02/01/19at 14:17; Start 02/01/19 at 06:00; Stop 02/01/19 at 14:27; Status DC Metronidazole 100 ml @ 100 mls/hr 1X ONCE IV Last administered on 01/31/19at 23:03; Start 01/31/19 at 23:00; Stop 01/31/19 at 23:59; Status DC Vancomycin HCl 250 ml @ 250 mls/hr 1X ONCE IV ; Start 01/31/19 at 22:45; Stop 01/31/19 at 23:44; Status UNV Sodium Chloride 1,000 ml @ 1,000 mls/hr 1X ONCE IV Last administered on 01/31/19at 23:02; Start 01/31/19 at 23:00; Stop 01/31/19 at 23:59; Status DC Vancomycin HCl (Vanco Per Pharmacy) 1 each PRN DAILY PRN MC SEE COMMENTS Last administered on 02/01/19at 13:44; Start 01/31/19 at 22:45; Stop 02/01/19 at 14:31; Status DC Vancomycin HCl 2 gm/Sodium Chloride 500 ml @ 250 mls/hr 1X ONCE IV Last administered on 02/01/19at 00:23; Start 01/31/19 at 23:00; Stop 02/01/19 at 00:59; Status DC Ondansetron HCl (Zofran) 4 mg PRN Q8HRS PRN IV NAUSEA/VOMITING 1ST CHOICE Last administered on 01/31/19at 23:01; Start 01/31/19 at 22:45; Stop 02/01/19 at 22: 44; Status DC Morphine Sulfate (Morphine Sulfate) 4 mg PRN Q4HRS PRN IV SEVERE PAIN Last administered on 02/01/19at 19:50; Start 01/31/19 at 22:45; Stop 02/01/19 at 22:44; Status DC Piperacillin Sod/ Tazobactam Sod 3.375 gm/Sodium Chloride 50 ml @ 100 mls/hr Q6HRS IV Last administered on 02/01/19at 05:55; Start 02/01/19 at 06:00; Stop 02/01/19 at 06:02; Status DC Vancomycin HCl 1.5 gm/Sodium Chloride 500 ml @ 250 mls/hr Q8H IV Last administered on 02/01/19at 08:31; Start 02/01/19 at 09:00; Stop 02/01/19 at 14:31; Status DC Vancomycin HCl (Vancomycin Trough Level) 1 each 1X ONCE MC ; Start 02/02/19 at 00:30; Stop 02/02/19 at 00:30; Status DC Enoxaparin Sodium (Lovenox 40mg Syringe) 40 mg Q24H SQ Last administered on 02/06/19at 15:38; Start 02/01/19 at 16:00 Pantoprazole Sodium (PROTONIX VIAL for IV PUSH) 40 mg DAILYAC IVP Last administered on 02/04/19at 08:25; Start 02/01/19 at 15:00; Stop 02/04/19 at 20:25; Status DC Morphine Sulfate (Morphine Sulfate) 4 mg PRN Q4HRS PRN IV SEVERE PAIN Last administered on 02/06/19at 07:28; Start 02/02/19 at 00:30 Piperacillin Sod/ Tazobactam Sod 3.375 gm/Sodium Chloride 50 ml @ 100 mls/hr Q6HRS IV Last administered on 02/07/19at 06:06; Start 02/02/19 at 12:00 Acetaminophen (Tylenol) 650 mg PRN Q6HRS PRN PO FEVER Last administered on 02/03/19at 19:56; Start 02/02/19 at 19:45 Labetalol HCl (Normodyne Iv Push) 10 mg PRN Q2HR PRN IVP HYPERTENSION, SEE COMMENTS Last administered on 02/02/19at 23:53; Start 02/02/19 at 23:30; Stop 02/03/19 at 13:48; Status DC Labetalol HCl (Normodyne Iv Push) 20 mg PRN Q2HR PRN IVP HYPERTENSION, SEE COMMENTS Last administered on 02/03/19at 17:33; Start 02/03/19 at 01:30 Hydralazine HCl (Apresoline Inj) 10 mg PRN Q4HRS PRN IVP ELEVATED BP, SEE COMMENTS Last administered on 02/06/19at 17:35; Start 02/03/19 at 01:30 Lisinopril (Prinivil) 10 mg DAILY PO Last administered on 02/04/19at 08:26; Start 02/03/19 at 12:00; Stop 02/04/19 at 10:43; Status DC Lidocaine/Sodium Bicarbonate (Buffered Lidocaine 1%) 3 ml STK-MED ONCE .ROUTE ; Start 02/03/19 at 12:08; Stop 02/03/19 at 12:09; Status DC Midazolam HCl (Versed) 2 mg STK-MED ONCE .ROUTE ; Start 02/03/19 at 12:09; Stop 02/03/19 at 12:10; Status DC Fentanyl Citrate (Fentanyl 2ml Vial) 100 mcg STK-MED ONCE .ROUTE ; Start 02/03/19 at 12:10; Stop 02/03/19 at 12:11; Status DC Lidocaine/Sodium Bicarbonate (Buffered Lidocaine 1%) 3 ml 1X ONCE IJ Last administered on 02/03/19at 12:30; Start 02/03/19 at 12:30; Stop 02/03/19 at 12:31; Status DC Midazolam HCl (Versed) 2 mg 1X ONCE IV Last administered on 02/03/19at 12:30; Start 02/03/19 at 12:30; Stop 02/03/19 at 12:31; Status DC Fentanyl Citrate (Fentanyl 2ml Vial) 100 mcg 1X ONCE IV Last administered on 02/03/19 12:30; Start 02/03/19 at 12:30; Stop 02/03/19 at 12:31; Status DC Oxycodone/ Acetaminophen (Percocet 7.5/ 325) 1 tab PRN Q4HRS PRN PO SEVERE PAIN Last administered on 02/07/19 10:16; Start 02/03/19 at 13:45 Lactobacillus Rhamnosus (Culturelle) 1 cap BID PO Last administered on 02/07/19 10:16; Start 02/03/19 at 21:00 Linezolid/Dextrose 300 ml @ 300 mls/hr Q12HR IV Last administered on 02/07/19 10:12; Start 02/03/19 at 21:00 Nicotine (Nicoderm Cq 21mg) 1 patch PRN DAILY PRN TD SMOKING CESSATION Last administered on 02/06/19 20:04; Start 02/03/19 at 21:45 Pantoprazole Sodium (Protonix) 40 mg DAILYAC PO Last administered on 02/07/19 10:17; Start 02/05/19 at 07:30 Carvedilol (Coreg) 6.25 mg BIDWMEALS PO Last administered on 02/07/19 10:17; Start 02/05/19 at 08:30 Metoprolol Tartrate (Lopressor Vial) 5 mg PRN Q4HRS PRN IVP HYPERTENSION, SEE COMMENTS Last administered on 02/07/19 10:18; Start 02/07/19 at 08:30 Active Scripts Active Ibuprofen 600 Mg Tablet 600 Mg PO PRN Q6HRS PRN Vitals/I & O Vital Sign - Last 24 Hours 02/06/19 02/06/19 02/06/19 02/06/19 15:00 16:30 17:35 18:18 Temp 98.0 98.0 Pulse 82 81 Resp 18 16 B/P (MAP) 179/102 (127) 144/78 171/102 Pulse Ox 96 O2 Delivery Room Air Room Air 02/06/19 02/06/19 02/06/19 02/07/19 20:00 23:04 23:18 03:00 Temp 98.9 99.0 98.5 98.9 99.0 98.5 Pulse 85 78 80 Resp 20 20 20 18 B/P (MAP) 173/100 (124) 158/93 (114) 160/114 (129) Pulse Ox 96 94 97 O2 Delivery Room Air Room Air Room Air Room Air 02/07/19 02/07/19 02/07/19 02/07/19 04:54 05:54 07:00 10:16 Temp 97.6 97.6 Pulse 78 Resp 20 20 16 B/P (MAP) 178/109 (132) Pulse Ox 97 O2 Delivery Room Air Room Air Room Air Room Air 02/07/19 02/07/19 10:17 10:18 Pulse 78 78 B/P (MAP) 178/109 178/109 Intake and Output 02/06/19 02/06/19 02/07/19 15:00 23:00 07:00 Intake Total 1120 ml 300 ml 175 ml Output Total 400 ml 1400 ml Balance 1120 ml -100 ml -1225 ml SUNDAR COBB MD February 07, 2019 10:29
--- NOTE | 2019-02-07 10:32 | PDOC ---
Infectious Disease Note Subjective Subjective awake, feeling much better after abscess drained ROS ROS no n/v/d/ Vital Sign Vital Signs Vital Signs Date Time Temp Pulse Resp B/P (MAP) Pulse Ox O2 Delivery O2 Flow Rate FiO2 02/07/19 10:18 78 178/109 02/07/19 10:16 Room Air 02/07/19 07:00 97.6 16 97 97.6 02/06/19 09:07 4.0 Physical Exam PHYSICAL EXAM GENERAL: Lying down, relaxed appearance HEENT: nad LUNGS: Clear to auscultation. HEART: S1 and S2. SKIN: Warm without rash. NEUROLOGIC: Alert and oriented times 3. PIV Labs Micro ANAEROBIC-AEROBIC CULTURE PENDING ANAEROBIC RES 1 PENDING AEROBIC CULT Final Final report AEROBIC RES 1 Final Escherichia coli Scant growth ANTIMICROBIAL SUSCEPTIBILITY Final Comment S = Susceptible; I = Intermediate; R = Resistant P = Positive; N = Negative MICS are expressed in micrograms per mL Antibiotic RSLT#1 RSLT#2 RSLT#3 RSLT#4 Amoxicillin/Clavulanic Acid S =8 Ampicillin R>=32 Cefepime S<=0.12 Ceftriaxone S<=0.25 Cefuroxime S =4 Ciprofloxacin R>=4 Ertapenem S<=0.12 Gentamicin S<=1 Imipenem S<=0.25 Levofloxacin R>=8 Meropenem S<=0.25 Piperacillin/Tazobactam S<=4 Tetracycline S<=1 Tobramycin S<=1 Trimethoprim/Sulfa S<=20 CONTINUED ON NEXT PAGE RUN DATE: 02/06/19 PAGE 2 RUN TIME: 1315 [facility] [address] [place] [address] Jarred Boateng M.D., [employer] SPEC: [id number] PATIENT: ALECIA HOFFMAN [id number] (Continued) ------- Procedure Result GRAM STAIN Final Final report GRAM STAIN RES 1 Final Comment No white blood cells seen. GRAM STAIN RES 2 Final Gram positive cocci Rare seen GRAM STAIN RES 3 Final Comment Rare gram negative rods. Performed at: [facility] - [facility] [place] [id number] [facility] [address], [place], [place] [id number] [employer] Faculty Member: AFTAB Moralez MD, Phone: [phone] Objective Assessment Sepsis Pelvic abscess measuring 5.1 x 3.4 cm and contains considerable surrounding inflammation. s/p drainage ? perforated diverticulitis Urine tox positive for meth. Patient denies drug use. Plan Plan of Care Zosyn and zyvox check cultures Gen surgery following Monitor WBC/temp repeat ct d/c zyvox ANDERSON BOLIVAR MD February 07, 2019 10:32
[2019-02-07 11:00] VITALS: BP 161/101
--- NOTE | 2019-02-07 11:57 | NUR ---
SW following for discharge planning. Discussed with RN, pt is from home, has children. Currently on IV abx, and has a drain. Discussed with Dr. Schaefer, PAT team consulted due to pt testing positive for meth. SW will continue to follow.
--- NOTE | 2019-02-07 14:28 | NUR ---
SW following. Yahir from PAT team contacted SW to advise of pt assessment. Per Yahir, pt reported he his a few years ago but has been living with her ever since and she is the one who uses meth every day, pt reported he only uses it once a week because it is there. Yahir advised pt had been to rehab about 20 years ago and is not interested in any rehab at this time. Yahir provided resources for pt. RN notified. CANDIDO will continue to follow.
[2019-02-07 15:00] VITALS: BP 172/104
[2019-02-07] MEDS: ENOXAPARIN 40 MG/0.4 ML SYRINGE. SQ SCH (16:45)
[2019-02-07 19:00] VITALS: BP 169/110
[2019-02-07] MEDS: NICOTINE 21MG PATCH. TD PRN (20:28)
[2019-02-07 23:00] VITALS: BP 158/84
[2019-02-08 03:00] VITALS: BP 162/99
[2019-02-08] MEDS: oxyCODONE/APAP 7.5/325 1 TAB TABLET PO PRN ×3 (04:25→19:33)
[2019-02-08] MEDS: PIPERACILLIN/TAZOBACTAM 3.375 GM in IV NORMAL SALINE 50ML 50 ML IV SCH ×3 (05:56→17:50)
[2019-02-08 07:00] VITALS: BP 160/93
--- NOTE | 2019-02-08 08:00 | PDOC ---
PROGRESS NOTES Chief Complaint Chief Complaint acute abdomen pain perforated diverticulum sepsis substance abuse History of Present Illness History of Present Illness broad iv abx advance diet drain exudate looks more clear today is translucent pain better consider repeat CT if drainage output stays low ID and gen surg following, IV abd PO pain meds Vitals Vitals Vital Signs Date Time Temp Pulse Resp B/P (MAP) Pulse Ox O2 Delivery O2 Flow Rate FiO2 02/08/19 05:25 20 Room Air 02/08/19 03:00 97.8 77 162/99 (120) 96 97.8 Physical Exam Physical Exam GENERAL: Lying down, relaxed appearance HEENT: nad LUNGS: Clear to auscultation. HEART: S1 and S2. SKIN: Warm without rash. NEUROLOGIC: Alert and oriented times 3. PIV General: Alert, Oriented X3, Cooperative, No acute distress, mild distress Heart: Regular rate, Normal S1, Normal S2, No murmurs Lungs: Clear Abdomen: Soft, Other (NTTP, drain in place) Extremities: No clubbing, No cyanosis, No edema Skin: No rashes, No breakdown Assessment and Plan Assessmemt and Plan Problems Medical Problems: (1) Abscess of pelvis Status: Acute (2) Elevated blood pressure reading without diagnosis of hypertension Status: Acute (3) Methamphetamine abuse Status: Acute (4) SIRS (systemic inflammatory response syndrome) Status: Acute Comment Review of Relevant I have reviewed the following items ted (where applicable) has been applied. Labs Microbiology 02/03/19 Blood Culture - Preliminary, Resulted NO GROWTH AFTER 4 DAYS 01/31/19 Urine Culture - Final, Complete 01/31/19 Urine Culture Result 1 (LILY) - Final, Complete 02/03/19 Anaerobic/Aerobic Culture - Final, Complete 02/03/19 Anaerobic Culture Result 1 (LILY) - Final, Complete 02/03/19 Aerobic Culture - Final, Complete 02/03/19 Aerobic Culture Result 1 (LILY) - Final, Complete 02/03/19 Antimicrobic Susceptibility - Final, Complete 02/03/19 Gram Stain - Final, Complete 02/03/19 Gram Stain Result 1 (LILY) - Final, Complete 02/03/19 Gram Stain Result 2 (LILY) - Final, Complete 02/03/19 Gram Stain Result 3 (LILY) - Final, Complete Medications Current Medications Sodium Chloride 1,000 ml @ 1,000 mls/hr Q1H IV Last administered on 01/31/19at 20:42; Start 01/31/19 at 20:12; Stop 01/31/19 at 21:11; Status DC Fentanyl Citrate (Fentanyl 2ml Vial) 50 mcg 1X ONCE IV Last administered on 01/31/19 20:49; Start 01/31/19 at 20:45; Stop 01/31/19 at 20:46; Status DC Ondansetron HCl (Zofran) 4 mg 1X ONCE IV Last administered on 01/31/19at 20:49; Start 01/31/19 at 20:45; Stop 01/31/19 at 20:46; Status DC Morphine Sulfate (Morphine Sulfate) 4 mg 1X ONCE IV Last administered on 01/31/19 23:01; Start 01/31/19 at 23:00; Stop 01/31/19 at 23:01; Status DC Piperacillin Sod/ Tazobactam Sod 3.375 gm/Sodium Chloride 50 ml @ 100 mls/hr 1X ONCE IV Last administered on 01/31/19at 23:52; Start 01/31/19 at 23:00; Stop 01/31/19 at 23:29; Status DC Metronidazole 100 ml @ 100 mls/hr Q8HRS IV Last administered on 02/01/19at 14:17; Start 02/01/19 at 06:00; Stop 02/01/19 at 14:27; Status DC Metronidazole 100 ml @ 100 mls/hr 1X ONCE IV Last administered on 01/31/19at 23:03; Start 01/31/19 at 23:00; Stop 01/31/19 at 23:59; Status DC Vancomycin HCl 250 ml @ 250 mls/hr 1X ONCE IV ; Start 01/31/19 at 22:45; Stop 01/31/19 at 23:44; Status UNV Sodium Chloride 1,000 ml @ 1,000 mls/hr 1X ONCE IV Last administered on 01/31/19at 23:02; Start 01/31/19 at 23:00; Stop 01/31/19 at 23:59; Status DC Vancomycin HCl (Vanco Per Pharmacy) 1 each PRN DAILY PRN MC SEE COMMENTS Last administered on 02/01/19at 13:44; Start 01/31/19 at 22:45; Stop 02/01/19 at 14:31; Status DC Vancomycin HCl 2 gm/Sodium Chloride 500 ml @ 250 mls/hr 1X ONCE IV Last administered on 02/01/19at 00:23; Start 01/31/19 at 23:00; Stop 02/01/19 at 00:59; Status DC Ondansetron HCl (Zofran) 4 mg PRN Q8HRS PRN IV NAUSEA/VOMITING 1ST CHOICE Last administered on 01/31/19at 23:01; Start 01/31/19 at 22:45; Stop 02/01/19 at 22:44; Status DC Morphine Sulfate (Morphine Sulfate) 4 mg PRN Q4HRS PRN IV SEVERE PAIN Last administered on 02/01/19at 19:50; Start 01/31/19 at 22:45; Stop 02/01/19 at 22:44; Status DC Piperacillin Sod/ Tazobactam Sod 3.375 gm/Sodium Chloride 50 ml @ 100 mls/hr Q6HRS IV Last administered on 02/01/19at 05:55; Start 02/01/19 at 06:00; Stop 02/01/19 at 06:02; Status DC Vancomycin HCl 1.5 gm/Sodium Chloride 500 ml @ 250 mls/hr Q8H IV Last administered on 02/01/19at 08:31; Start 02/01/19 at 09:00; Stop 02/01/19 at 14:31; Status DC Vancomycin HCl (Vancomycin Trough Level) 1 each 1X ONCE MC ; Start 02/02/19 at 00:30; Stop 02/02/19 at 00:30; Status DC Enoxaparin Sodium (Lovenox 40mg Syringe) 40 mg Q24H SQ Last administered on 02/07/19at 16:45; Start 02/01/19 at 16:00 Pantoprazole Sodium (PROTONIX VIAL for IV PUSH) 40 mg DAILYAC IVP Last administered on 02/04/19at 08:25; Start 02/01/19 at 15:00; Stop 02/04/19 at 20:25; Status DC Morphine Sulfate (Morphine Sulfate) 4 mg PRN Q4HRS PRN IV SEVERE PAIN Last administered on 02/06/19at 07:28; Start 02/02/19 at 00:30 Piperacillin Sod/ Tazobactam Sod 3.375 gm/Sodium Chloride 50 ml @ 100 mls/hr Q6HRS IV Last administered on 02/08/19 05:56; Start 02/02/19 at 12:00 Acetaminophen (Tylenol) 650 mg PRN Q6HRS PRN PO FEVER Last administered on 02/03/19at 19:56; Start 02/02/19 at 19:45 Labetalol HCl (Normodyne Iv Push) 10 mg PRN Q2HR PRN IVP HYPERTENSION, SEE COMMENTS Last administered on 02/02/19at 23:53; Start 02/02/19 at 23:30; Stop 02/03/19 at 13:48; Status DC Labetalol HCl (Normodyne Iv Push) 20 mg PRN Q2HR PRN IVP HYPERTENSION, 2ND CHOICE Last administered on 02/03/19at 17:33; Start 02/03/19 at 01:30 Hydralazine HCl (Apresoline Inj) 10 mg PRN Q4HRS PRN IVP ELEVATED BP, 1ST CHOICE Last administered on 02/06/19 17:35; Start 02/03/19 at 01:30 Lisinopril (Prinivil) 10 mg DAILY PO Last administered on 02/04/19 08:26; Start 02/03/19 at 12:00; Stop 02/04/19 at 10:43; Status DC Lidocaine/Sodium Bicarbonate (Buffered Lidocaine 1%) 3 ml STK-MED ONCE .ROUTE ; Start 02/03/19 at 12:08; Stop 02/03/19 at 12:09; Status DC Midazolam HCl (Versed) 2 mg STK-MED ONCE .ROUTE ; Start 02/03/19 at 12:09; Stop 02/03/19 at 12:10; Status DC Fentanyl Citrate (Fentanyl 2ml Vial) 100 mcg STK-MED ONCE .ROUTE ; Start 02/03/19 at 12:10; Stop 02/03/19 at 12:11; Status DC Lidocaine/Sodium Bicarbonate (Buffered Lidocaine 1%) 3 ml 1X ONCE IJ Last administered on 02/03/19at 12:30; Start 02/03/19 at 12:30; Stop 02/03/19 at 12:31; Status DC Midazolam HCl (Versed) 2 mg 1X ONCE IV Last administered on 02/03/19at 12:30; Start 02/03/19 at 12:30; Stop 02/03/19 at 12:31; Status DC Fentanyl Citrate (Fentanyl 2ml Vial) 100 mcg 1X ONCE IV Last administered on 02/03/19 12:30; Start 02/03/19 at 12:30; Stop 02/03/19 at 12:31; Status DC Oxycodone/ Acetaminophen (Percocet 7.5/ 325) 1 tab PRN Q4HRS PRN PO SEVERE PAIN Last administered on 02/08/19 04:25; Start 02/03/19 at 13:45 Lactobacillus Rhamnosus (Culturelle) 1 cap BID PO Last administered on 02/07/19 21:07; Start 02/03/19 at 21:00 Linezolid/Dextrose 300 ml @ 300 mls/hr Q12HR IV Last administered on 02/07/19 10:12; Start 02/03/19 at 21:00; Stop 02/07/19 at 10:33; Status DC Nicotine (Nicoderm Cq 21mg) 1 patch PRN DAILY PRN TD SMOKING CESSATION Last administered on 02/07/19 20:28; Start 02/03/19 at 21:45 Pantoprazole Sodium (Protonix) 40 mg DAILYAC PO Last administered on 02/07/19 10:17; Start 02/05/19 at 07:30 Carvedilol (Coreg) 6.25 mg BIDWMEALS PO Last administered on 02/07/19 16:44; Start 02/05/19 at 08:30 Metoprolol Tartrate (Lopressor Vial) 5 mg PRN Q4HRS PRN IVP HYPERTENSION, SEE COMMENTS Last administered on 02/07/19 10:18; Start 02/07/19 at 08:30 Active Scripts Active Ibuprofen 600 Mg Tablet 600 Mg PO PRN Q6HRS PRN Vitals/I & O Vital Sign - Last 24 Hours 02/07/19 02/07/19 02/07/19 02/07/19 10:16 10:17 10:18 11:00 Temp 97.8 97.8 Pulse 78 78 81 Resp 18 B/P (MAP) 178/109 178/109 161/101 (121) Pulse Ox 99 O2 Delivery Room Air Room Air 02/07/19 02/07/19 02/07/19 02/07/19 15:00 16:44 19:00 20:00 Temp 98.1 98.3 98.1 98.3 Pulse 80 81 79 Resp 18 18 B/P (MAP) 172/104 (126) 161/101 169/110 (129) Pulse Ox 100 98 O2 Delivery Room Air Room Air Room Air 02/07/19 02/07/19 02/08/19 02/08/19 21:07 23:00 03:00 04:25 Temp 98.6 97.8 98.6 97.8 Pulse 86 77 Resp 18 18 18 20 B/P (MAP) 158/84 (108) 162/99 (120) Pulse Ox 94 96 O2 Delivery Room Air Room Air Room Air Room Air 02/08/19 05:25 Resp 20 O2 Delivery Room Air Intake and Output 02/07/19 02/07/19 02/08/19 14:59 22:59 06:59 Intake Total 380 ml Output Total 650 ml 800 ml Balance -650 ml -420 ml SUNDAR COBB MD February 08, 2019 08:00
--- NOTE | 2019-02-08 08:56 | PDOC ---
SURGICAL PROGRESS NOTE Subjective no complaints very little from drain now Vital Signs Vital Signs Date Time Temp Pulse Resp B/P (MAP) Pulse Ox O2 Delivery O2 Flow Rate FiO2 02/08/19 07:00 98.7 77 18 160/93 (115) 95 Room Air 98.7 I&O Intake and Output 02/08/19 06:59 Intake Total 380 ml Output Total 1450 ml Balance -1070 ml Intake Oral 380 ml Output Urine Total 1450 ml # Voids 4 # Bowel Movements 1 General: Alert, Oriented X3, Cooperative, No acute distress Abdomen: Soft, Other (ND, NTTP, no drainage in jordyn ) Problem List Problems Medical Problems: (1) Abscess of pelvis Status: Acute (2) Elevated blood pressure reading without diagnosis of hypertension Status: Acute (3) Methamphetamine abuse Status: Acute (4) SIRS (systemic inflammatory response syndrome) Status: Acute Assessment/Plan scant drainage now from drain will plan CT in AM to reassess ROCIO KEYES APRN February 08, 2019 08:56
[2019-02-08] MEDS: PANTOPRAZOLE 40 MG TABLET.DR. PO SCH (08:59)
[2019-02-08] MEDS: LACTOBACILLUS RHAMNOSUS GG 1 CAPSULE. PO SCH ×2 (08:59→20:22)
[2019-02-08] MEDS: CARVEDILOL 6.25 MG TABLET. PO SCH ×2 (08:59→17:50)
[2019-02-08] MEDS: MORPHINE SULFATE 4 MG/ML VIAL. IV PRN (10:59)
[2019-02-08 11:00] VITALS: BP 174/105
--- NOTE | 2019-02-08 11:43 | PDOC ---
Infectious Disease Note Subjective Subjective Doing alright No F/C/S/N/V/D + BM ROS ROS per HPI Vital Sign Vital Signs Vital Signs Date Time Temp Pulse Resp B/P (MAP) Pulse Ox O2 Delivery O2 Flow Rate FiO2 02/08/19 10:59 20 Room Air 02/08/19 08:59 77 160/93 02/08/19 07:00 98.7 95 98.7 Physical Exam PHYSICAL EXAM GENERAL: Propped up in bed, alert, NAD HEENT: Oral cavity dry LUNGS: Clear to auscultation. HEART: S1 and S2. EXT: No gross edema or cyanosis SKIN: Warm without rash. NEUROLOGIC: Alert and oriented times 3. PIVs Labs Micro Microbiology 01/31/19 Blood Culture - Preliminary, Resulted NO GROWTH AFTER 1 DAY Objective Assessment Sepsis, improved Pelvic abscess measuring 5.1 x 3.4 cm and contains considerable surrounding inflammation. s/p drainage, 02/01. E. coli (R amp, quinolones) and bacteroides. No growth of GPC on gram stain ? perforated diverticulitis Urine tox positive for meth. Patient denies drug use. Plan Plan of Care Continue Zosyn Off Zyvox f/u am labs Repeat CT pending Patient seen, examined, I agree with above Assessment and plan by CHILD ADOLESCENT PSYCHIATRIST. D/W family at bedside MSEHA CRABTREE APRN February 08, 2019 11:43 DILLON BOLIVAR MD February 08, 2019 13:54
[2019-02-08 15:00] VITALS: BP 171/103
[2019-02-08] MEDS: ENOXAPARIN 40 MG/0.4 ML SYRINGE. SQ SCH (17:49)
[2019-02-08 19:29] VITALS: BP 161/103
[2019-02-08] MEDS ORDERED: LISINOPRIL 5 MG TABLET. PO ONE (19:45)
[2019-02-08 23:00] VITALS: BP 158/96
[2019-02-09] MEDS: PIPERACILLIN/TAZOBACTAM 3.375 GM in IV NORMAL SALINE 50ML 50 ML IV SCH ×4 (00:37→18:20)
[2019-02-09 03:29] VITALS: BP 148/96
[2019-02-09] MEDS: PANTOPRAZOLE 40 MG TABLET.DR. PO SCH (06:03)
[2019-02-09] MEDS: oxyCODONE/APAP 7.5/325 1 TAB TABLET PO PRN ×3 (06:03→21:54)
[2019-02-09 07:00] VITALS: BP 138/79
[2019-02-09] MEDS: LACTOBACILLUS RHAMNOSUS GG 1 CAPSULE. PO SCH ×2 (10:08→20:41)
[2019-02-09] MEDS: CARVEDILOL 6.25 MG TABLET. PO SCH ×2 (10:08→18:19)
[2019-02-09] MEDS: LISINOPRIL 5 MG TABLET. PO SCH (10:08)
--- NOTE | 2019-02-09 10:10 | PDOC ---
PROGRESS NOTES Chief Complaint Chief Complaint acute abdomen pain perforated diverticulum sepsis substance abuse History of Present Illness History of Present Illness broad iv abx advance diet drain exudate looks more clear today is translucent pain better consider repeat CT if drainage output stays low ID and gen surg following, IV abd PO pain meds cbc, bmp today guarded prognosis due to substance abuse, compliance Vitals Vitals Vital Signs Date Time Temp Pulse Resp B/P (MAP) Pulse Ox O2 Delivery O2 Flow Rate FiO2 02/09/19 10:08 109 138/79 02/09/19 07:00 97.8 18 94 Room Air 97.8 02/08/19 08:00 4.0 Physical Exam Physical Exam GENERAL: Propped up in bed, alert, NAD HEENT: Oral cavity dry LUNGS: Clear to auscultation. HEART: S1 and S2. EXT: No gross edema or cyanosis SKIN: Warm without rash. NEUROLOGIC: Alert and oriented times 3. PIVs General: Alert, Oriented X3, Cooperative, No acute distress Heart: Regular rate, Normal S1, Normal S2, No murmurs Lungs: Clear Abdomen: Soft, No tenderness, Other (ND, NTTP, no drainage in jordyn ) Extremities: No clubbing, No cyanosis, No edema Skin: No rashes, No breakdown Assessment and Plan Assessmemt and Plan Problems Medical Problems: (1) Abscess of pelvis Status: Acute (2) Elevated blood pressure reading without diagnosis of hypertension Status: Acute (3) Methamphetamine abuse Status: Acute (4) SIRS (systemic inflammatory response syndrome) Status: Acute Comment Review of Relevant I have reviewed the following items ted (where applicable) has been applied. Labs Microbiology 02/03/19 Blood Culture - Final, Complete NO GROWTH AFTER 5 DAYS 01/31/19 Urine Culture - Final, Complete 01/31/19 Urine Culture Result 1 (LILY) - Final, Complete 02/03/19 Anaerobic/Aerobic Culture - Final, Complete 02/03/19 Anaerobic Culture Result 1 (LILY) - Final, Complete 02/03/19 Aerobic Culture - Final, Complete 02/03/19 Aerobic Culture Result 1 (LILY) - Final, Complete 02/03/19 Antimicrobic Susceptibility - Final, Complete 02/03/19 Gram Stain - Final, Complete 02/03/19 Gram Stain Result 1 (LILY) - Final, Complete 02/03/19 Gram Stain Result 2 (LILY) - Final, Complete 02/03/19 Gram Stain Result 3 (LILY) - Final, Complete Medications Current Medications Sodium Chloride 1,000 ml @ 1,000 mls/hr Q1H IV Last administered on 01/31/19at 20:42; Start 01/31/19 at 20:12; Stop 01/31/19 at 21:11; Status DC Fentanyl Citrate (Fentanyl 2ml Vial) 50 mcg 1X ONCE IV Last administered on 01/31/19at 20:49; Start 01/31/19 at 20:45; Stop 01/31/19 at 20:46; Status DC Ondansetron HCl (Zofran) 4 mg 1X ONCE IV Last administered on 01/31/19at 20:49; Start 01/31/19 at 20:45; Stop 01/31/19 at 20:46; Status DC Morphine Sulfate (Morphine Sulfate) 4 mg 1X ONCE IV Last administered on 01/31/19at 23:01; Start 01/31/19 at 23:00; Stop 01/31/19 at 23:01; Status DC Piperacillin Sod/ Tazobactam Sod 3.375 gm/Sodium Chloride 50 ml @ 100 mls/hr 1X ONCE IV Last administered on 01/31/19at 23:52; Start 01/31/19 at 23:00; Stop 01/31/19 at 23:29; Status DC Metronidazole 100 ml @ 100 mls/hr Q8HRS IV Last administered on 02/01/19at 14:17; Start 02/01/19 at 06:00; Stop 02/01/19 at 14:27; Status DC Metronidazole 100 ml @ 100 mls/hr 1X ONCE IV Last administered on 01/31/19at 23:03; Start 01/31/19 at 23:00; Stop 01/31/19 at 23:59; Status DC Vancomycin HCl 250 ml @ 250 mls/hr 1X ONCE IV ; Start 01/31/19 at 22:45; Stop 01/31/19 at 23:44; Status UNV Sodium Chloride 1,000 ml @ 1,000 mls/hr 1X ONCE IV Last administered on 01/31/19at 23:02; Start 01/31/19 at 23:00; Stop 01/31/19 at 23:59; Status DC Vancomycin HCl (Vanco Per Pharmacy) 1 each PRN DAILY PRN MC SEE COMMENTS Last administered on 02/01/19at 13:44; Start 01/31/19 at 22:45; Stop 02/01/19 at 14:31; Status DC Vancomycin HCl 2 gm/Sodium Chloride 500 ml @ 250 mls/hr 1X ONCE IV Last administered on 02/01/19at 00:23; Start 01/31/19 at 23:00; Stop 02/01/19 at 00:59; Status DC Ondansetron HCl (Zofran) 4 mg PRN Q8HRS PRN IV NAUSEA/VOMITING 1ST CHOICE Last administered on 01/31/19at 23:01; Start 01/31/19 at 22:45; Stop 02/01/19 at 22:44; Status DC Morphine Sulfate (Morphine Sulfate) 4 mg PRN Q4HRS PRN IV SEVERE PAIN Last administered on 02/01/19at 19:50; Start 01/31/19 at 22:45; Stop 02/01/19 at 22:44; Status DC Piperacillin Sod/ Tazobactam Sod 3.375 gm/Sodium Chloride 50 ml @ 100 mls/hr Q6HRS IV Last administered on 02/01/19at 05:55; Start 02/01/19 at 06:00; Stop 02/01/19 at 06:02; Status DC Vancomycin HCl 1.5 gm/Sodium Chloride 500 ml @ 250 mls/hr Q8H IV Last administered on 02/01/19at 08:31; Start 02/01/19 at 09:00; Stop 02/01/19 at 14:31; Status DC Vancomycin HCl (Vancomycin Trough Level) 1 each 1X ONCE MC ; Start 02/02/19 at 00:30; Stop 02/02/19 at 00:30; Status DC Enoxaparin Sodium (Lovenox 40mg Syringe) 40 mg Q24H SQ Last administered on 02/08/19 17:49; Start 02/01/19 at 16:00 Pantoprazole Sodium (PROTONIX VIAL for IV PUSH) 40 mg DAILYAC IVP Last administered on 02/04/19at 08:25; Start 02/01/19 at 15:00; Stop 02/04/19 at 20:25; Status DC Morphine Sulfate (Morphine Sulfate) 4 mg PRN Q4HRS PRN IV SEVERE PAIN Last administered on 02/08/19at 10:59; Start 02/02/19 at 00:30 Piperacillin Sod/ Tazobactam Sod 3.375 gm/Sodium Chloride 50 ml @ 100 mls/hr Q6HRS IV Last administered on 02/09/19at 06:05; Start 02/02/19 at 12:00 Acetaminophen (Tylenol) 650 mg PRN Q6HRS PRN PO FEVER Last administered on 02/03/19at 19:56; Start 02/02/19 at 19:45 Labetalol HCl (Normodyne Iv Push) 10 mg PRN Q2HR PRN IVP HYPERTENSION, SEE COMMENTS Last administered on 02/02/19at 23:53; Start 02/02/19 at 23:30; Stop 02/03/19 at 13:48; Status DC Labetalol HCl (Normodyne Iv Push) 20 mg PRN Q2HR PRN IVP HYPERTENSION, 2ND CHOICE Last administered on 02/03/19at 17:33; Start 02/03/19 at 01:30 Hydralazine HCl (Apresoline Inj) 10 mg PRN Q4HRS PRN IVP ELEVATED BP, 1ST CHOICE Last administered on 02/06/19at 17:35; Start 02/03/19 at 01:30 Lisinopril (Prinivil) 10 mg DAILY PO Last administered on 02/04/19at 08:26; Start 02/03/19 at 12:00; Stop 02/04/19 at 10:43; Status DC Lidocaine/Sodium Bicarbonate (Buffered Lidocaine 1%) 3 ml STK-MED ONCE .ROUTE ; Start 02/03/19 at 12:08; Stop 02/03/19 at 12:09; Status DC Midazolam HCl (Versed) 2 mg STK-MED ONCE .ROUTE ; Start 02/03/19 at 12:09; Stop 02/03/19 at 12:10; Status DC Fentanyl Citrate (Fentanyl 2ml Vial) 100 mcg STK-MED ONCE .ROUTE ; Start 02/03/19 at 12:10; Stop 02/03/19 at 12:11; Status DC Lidocaine/Sodium Bicarbonate (Buffered Lidocaine 1%) 3 ml 1X ONCE IJ Last administered on 02/03/19at 12:30; Start 02/03/19 at 12:30; Stop 02/03/19 at 12:31; Status DC Midazolam HCl (Versed) 2 mg 1X ONCE IV Last administered on 02/03/19 12:30; Start 02/03/19 at 12:30; Stop 02/03/19 at 12:31; Status DC Fentanyl Citrate (Fentanyl 2ml Vial) 100 mcg 1X ONCE IV Last administered on 02/03/19 12:30; Start 02/03/19 at 12:30; Stop 02/03/19 at 12:31; Status DC Oxycodone/ Acetaminophen (Percocet 7.5/ 325) 1 tab PRN Q4HRS PRN PO SEVERE PAIN Last administered on 02/09/19 06:03; Start 02/03/19 at 13:45 Lactobacillus Rhamnosus (Culturelle) 1 cap BID PO Last administered on 02/09/19 10:08; Start 02/03/19 at 21:00 Linezolid/Dextrose 300 ml @ 300 mls/hr Q12HR IV Last administered on 02/07/19 10:12; Start 02/03/19 at 21:00; Stop 02/07/19 at 10:33; Status DC Nicotine (Nicoderm Cq 21mg) 1 patch PRN DAILY PRN TD SMOKING CESSATION Last administered on 02/07/19 20:28; Start 02/03/19 at 21:45 Pantoprazole Sodium (Protonix) 40 mg DAILYAC PO Last administered on 02/09/19 06:03; Start 02/05/19 at 07:30 Carvedilol (Coreg) 6.25 mg BIDWMEALS PO Last administered on 02/09/19 10:08; Start 02/05/19 at 08:30 Metoprolol Tartrate (Lopressor Vial) 5 mg PRN Q4HRS PRN IVP HYPERTENSION, SEE COMMENTS Last administered on 02/07/19 10:18; Start 02/07/19 at 08:30 Lisinopril (Prinivil) 5 mg DAILY PO Last administered on 02/09/19 10:08; Start 02/09/19 at 09:00 Lisinopril (Prinivil) 5 mg 1X ONCE PO Last administered on 02/08/19 20:23; Start 02/08/19 at 19:45; Stop 02/08/19 at 19:46; Status DC Active Scripts Active Ibuprofen 600 Mg Tablet 600 Mg PO PRN Q6HRS PRN Vitals/I & O Vital Sign - Last 24 Hours 02/08/19 02/08/19 02/08/19 02/08/19 10:59 11:00 11:29 13:23 Temp 98.7 98.7 Pulse 81 Resp 20 18 20 20 B/P (MAP) 174/105 (128) Pulse Ox 97 O2 Delivery Room Air Room Air Room Air Room Air 02/08/19 02/08/19 02/08/19 02/08/19 14:23 15:00 17:50 19:29 Temp 98.8 98.2 98.8 98.2 Pulse 93 81 92 Resp 18 20 18 B/P (MAP) 171/103 (125) 174/105 161/103 (122) Pulse Ox 95 98 O2 Delivery Room Air Room Air Room Air 02/08/19 02/08/19 02/08/19 02/09/19 20:00 20:23 23:00 03:29 Temp 98.2 98.2 98.2 98.2 Pulse 92 97 89 Resp 18 20 B/P (MAP) 161/103 158/96 (116) 148/96 (113) Pulse Ox 97 93 O2 Delivery Room Air Room Air Room Air 02/09/19 02/09/19 02/09/19 07:00 10:08 10:08 Temp 97.8 97.8 Pulse 109 109 109 Resp 18 B/P (MAP) 138/79 (98) 138/79 138/79 Pulse Ox 94 O2 Delivery Room Air Intake and Output 02/08/19 02/08/19 02/09/19 15:00 23:00 07:00 Intake Total 450 ml 450 ml 920 ml Output Total 1100 ml 10 ml Balance -650 ml 450 ml 910 ml SUNDAR COBB MD February 09, 2019 10:10
[2019-02-09 11:00] VITALS: BP 156/108
[2019-02-09 12:34] LABS: CREATININE 1.4 mg/dL (0.7-1.3); GFR 52.4; POTASSIUM 4.3 mmol/L (3.5-5.1)
[2019-02-09 12:35] LABS: BASO # 0.1 x10^3/uL (0.0-0.2); BASO % 0 % (0-3); EOS # 0.3 x10^3/uL (0.0-0.7); EOS % 2 % (0-3); HEMATOCRIT 40.1 % (39.0-53.0); HEMOGLOBIN 13.1 g/dL (13.0-17.5); LYMPH # 1.4 x10^3/uL (1.0-4.8); LYMPH % 12 % (24-48); MEAN CORPUSCULAR HEMOGLOBIN 28 pg (25-35); MEAN CORPUSCULAR HGB CONC 33 g/dL (31-37); MEAN CORPUSCULAR VOLUME 85 fL (79-100); MONO # 0.8 x10^3/uL (0.0-1.1); MONO % 7 % (0-9); NEUT # 9.2 x10^3uL (1.8-7.7); NEUT % 79 % (31-73); PLATELET COUNT 510 x10^3/uL (140-400); RED BLOOD COUNT 4.72 x10^6/uL (4.30-5.70); RED CELL DISTRIBUTION WIDTH 14.9 % (11.5-14.5); WHITE BLOOD COUNT 11.7 x10^3/uL (4.0-11.0)
[2019-02-09] MEDS ORDERED: IOHEXOL 240 MG/ML 50ML VIAL. PO ONE (13:00)
[2019-02-09] MEDS ORDERED: IOHEXOL 300 MG/ML 100ML VIAL. IV ONE (13:00)
[2019-02-09] MEDS ORDERED: CONTRAST GIVEN. MC PRN (13:15)
[2019-02-09 13:35] LABS: % BANDS 8 % (0-9); % EOS 2 % (0-5); % LYMPHS 11 % (24-48); % METAS 1 % (0-0); % MONOS 6 % (0-10); % MYELOS 1 % (0-0); % SEGS 71 % (35-66); PLT ESTIMATE INCREASED (ADEQUATE); POLYCHROMASIA SLIGHT
--- NOTE | 2019-02-09 14:09 | RAD ---
EXAM: Abdomen and pelvis CT with intravenous contrast. HISTORY: Abscess. TECHNIQUE: Computed tomographic images of the abdomen and pelvis were obtained following the administration of 60 cc Omnipaque 300 intravenous contrast. Multiplanar reformatting was performed. *One or more of the following individualized dose reduction techniques were utilized for this examination: 1. Automated exposure control. 2. Adjustment of the mA and/or kV according to patient size. 3. Use of iterative reconstruction technique. COMPARISON: 02/03/2019 and 01/31/2019. FINDINGS: Evaluation of the lower thorax demonstrates slight increased right greater than left lower lobe atelectasis. There is no significant pleural effusion. The heart is normal in size. There are few calcified granulomas. No hepatic lesion is seen. The gallbladder, pancreas, spleen and adrenal glands are unremarkable. There is a percutaneous pigtail drainage catheter entering the ventral abdominal wall slightly inferior to the umbilicus to the right of midline to terminate within a complex air and fluid collection within the left retroperitoneum. There is trace fluid and stranding along the catheter trajectory. The gas and fluid collection measures 5.4 cm, compared to a prior measurement of approximately 7.0 cm. There is surrounding left peritoneal and retroperitoneal fatty stranding and trace fluid. No additional drainable fluid collision is seen. There is a slightly prominent left renal collecting system likely due to slight mass effect on the mid left ureter due to the aforementioned retroperitoneal fluid collection. The appendix is surgically absent. There is moderate colonic stool. There is colonic diverticulosis. The bladder is unremarkable. There are prominent retroperitoneal lymph nodes, likely reactive in etiology. There is a small fat-containing umbilical hernia. There are small right greater than left fat-containing supraumbilical hernias. There is gas within the left ventral abdominal wall likely due to a medication injection site. There is no suspicious osseous lesion. IMPRESSION: 1. Decreased size of the complex gas and fluid collection within the left retroperitoneum status post percutaneous pigtail catheter placement. There is fatty stranding trace fluid along the course of the catheter and surrounding the aforementioned complex collection. No new drainable fluid collection is seen. 2. Slightly prominent left renal collecting system due to mass effect from the aforementioned retroperitoneal fluid collection. This has slightly decreased compared to the prior study. 3. Colonic diverticulosis. 4. Small fat-containing umbilical and supraumbilical hernias. 5. Slight increased bilateral lower lobe atelectasis. Electronically signed by: Mildred Conrad MD (02/09/2019 2:07 PM) [facility]
--- NOTE | 2019-02-09 14:42 | PDOC ---
PROGRESS NOTES Subjective Subjective pt sleeping, I did not wake him Objective Objective Vital Signs Date Time Temp Pulse Resp B/P (MAP) Pulse Ox O2 Delivery O2 Flow Rate FiO2 02/09/19 11:00 98.1 86 18 156/108 (124) 97 Room Air 98.1 02/08/19 08:00 4.0 Intake and Output 02/09/19 06:59 Intake Total 1820 ml Output Total 1110 ml Balance 710 ml Intake Oral 1820 ml Output Urine Total 1100 ml Drainage Total 10 ml # Voids 7 Assessment Assessment Problems Medical Problems: (1) Abscess of pelvis Status: Acute (2) Elevated blood pressure reading without diagnosis of hypertension Status: Acute (3) Methamphetamine abuse Status: Acute (4) SIRS (systemic inflammatory response syndrome) Status: Acute Plan Plan of Care CT scan later today Comment Review of Relevant I have reviewed the following items ted (where applicable) has been applied. Labs Laboratory Tests Test 02/09/19 12:15 White Blood Count 11.7 x10^3/uL (4.0-11.0) Red Blood Count 4.72 x10^6/uL (4.30-5.70) Hemoglobin 13.1 g/dL (13.0-17.5) Hematocrit 40.1 % (39.0-53.0) Mean Corpuscular Volume 85 fL (79-100) Mean Corpuscular Hemoglobin 28 pg (25-35) Mean Corpuscular Hemoglobin Concent 33 g/dL (31-37) Red Cell Distribution Width 14.9 % (11.5-14.5) Platelet Count 510 x10^3/uL (140-400) Neutrophils (%) (Auto) 79 % (31-73) Lymphocytes (%) (Auto) 12 % (24-48) Monocytes (%) (Auto) 7 % (0-9) Eosinophils (%) (Auto) 2 % (0-3) Basophils (%) (Auto) 0 % (0-3) Neutrophils # (Auto) 9.2 x10^3uL (1.8-7.7) Lymphocytes # (Auto) 1.4 x10^3/uL (1.0-4.8) Monocytes # (Auto) 0.8 x10^3/uL (0.0-1.1) Eosinophils # (Auto) 0.3 x10^3/uL (0.0-0.7) Basophils # (Auto) 0.1 x10^3/uL (0.0-0.2) Segmented Neutrophils % 71 % (35-66) Band Neutrophils % 8 % (0-9) Lymphocytes % 11 % (24-48) Monocytes % 6 % (0-10) Eosinophils % 2 % (0-5) Metamyelocytes % 1 % (0-0) Myelocytes % 1 % (0-0) Platelet Estimate Increased (ADEQUATE) Polychromasia Slight Sodium Level 135 mmol/L (136-145) Potassium Level 4.3 mmol/L (3.5-5.1) Chloride Level 100 mmol/L (98-107) Carbon Dioxide Level 27 mmol/L (21-32) Anion Gap 8 (6-14) Blood Urea Nitrogen 19 mg/dL (8-26) Creatinine 1.4 mg/dL (0.7-1.3) Estimated GFR (Cockcroft-Gault) 52.4 Glucose Level 100 mg/dL (70-99) Calcium Level 9.0 mg/dL (8.5-10.1) Laboratory Tests Test 02/09/19 12:15 White Blood Count 11.7 x10^3/uL (4.0-11.0) Red Blood Count 4.72 x10^6/uL (4.30-5.70) Hemoglobin 13.1 g/dL (13.0-17.5) Hematocrit 40.1 % (39.0-53.0) Mean Corpuscular Volume 85 fL (79-100) Mean Corpuscular Hemoglobin 28 pg (25-35) Mean Corpuscular Hemoglobin Concent 33 g/dL (31-37) Red Cell Distribution Width 14.9 % (11.5-14.5) Platelet Count 510 x10^3/uL (140-400) Neutrophils (%) (Auto) 79 % (31-73) Lymphocytes (%) (Auto) 12 % (24-48) Monocytes (%) (Auto) 7 % (0-9) Eosinophils (%) (Auto) 2 % (0-3) Basophils (%) (Auto) 0 % (0-3) Neutrophils # (Auto) 9.2 x10^3uL (1.8-7.7) Lymphocytes # (Auto) 1.4 x10^3/uL (1.0-4.8) Monocytes # (Auto) 0.8 x10^3/uL (0.0-1.1) Eosinophils # (Auto) 0.3 x10^3/uL (0.0-0.7) Basophils # (Auto) 0.1 x10^3/uL (0.0-0.2) Segmented Neutrophils % 71 % (35-66) Band Neutrophils % 8 % (0-9) Lymphocytes % 11 % (24-48) Monocytes % 6 % (0-10) Eosinophils % 2 % (0-5) Metamyelocytes % 1 % (0-0) Myelocytes % 1 % (0-0) Platelet Estimate Increased (ADEQUATE) Polychromasia Slight Sodium Level 135 mmol/L (136-145) Potassium Level 4.3 mmol/L (3.5-5.1) Chloride Level 100 mmol/L (98-107) Carbon Dioxide Level 27 mmol/L (21-32) Anion Gap 8 (6-14) Blood Urea Nitrogen 19 mg/dL (8-26) Creatinine 1.4 mg/dL (0.7-1.3) Estimated GFR (Cockcroft-Gault) 52.4 Glucose Level 100 mg/dL (70-99) Calcium Level 9.0 mg/dL (8.5-10.1) Microbiology 02/03/19 Blood Culture - Final, Complete NO GROWTH AFTER 5 DAYS 01/31/19 Urine Culture - Final, Complete 01/31/19 Urine Culture Result 1 (LILY) - Final, Complete 02/03/19 Anaerobic/Aerobic Culture - Final, Complete 02/03/19 Anaerobic Culture Result 1 (LILY) - Final, Complete 02/03/19 Aerobic Culture - Final, Complete 02/03/19 Aerobic Culture Result 1 (LILY) - Final, Complete 02/03/19 Antimicrobic Susceptibility - Final, Complete 02/03/19 Gram Stain - Final, Complete 02/03/19 Gram Stain Result 1 (LILY) - Final, Complete 02/03/19 Gram Stain Result 2 (LILY) - Final, Complete 02/03/19 Gram Stain Result 3 (LILY) - Final, Complete Medications Current Medications Sodium Chloride 1,000 ml @ 1,000 mls/hr Q1H IV Last administered on 01/31/19at 20:42; Start 01/31/19 at 20:12; Stop 01/31/19 at 21:11; Status DC Fentanyl Citrate (Fentanyl 2ml Vial) 50 mcg 1X ONCE IV Last administered on 01/31/19at 20:49; Start 01/31/19 at 20:45; Stop 01/31/19 at 20:46; Status DC Ondansetron HCl (Zofran) 4 mg 1X ONCE IV Last administered on 01/31/19at 20:49; Start 01/31/19 at 20:45; Stop 01/31/19 at 20:46; Status DC Morphine Sulfate (Morphine Sulfate) 4 mg 1X ONCE IV Last administered on 01/31/19at 23:01; Start 01/31/19 at 23:00; Stop 01/31/19 at 23:01; Status DC Piperacillin Sod/ Tazobactam Sod 3.375 gm/Sodium Chloride 50 ml @ 100 mls/hr 1X ONCE IV Last administered on 01/31/19at 23:52; Start 01/31/19 at 23:00; Stop 01/31/19 at 23:29; Status DC Metronidazole 100 ml @ 100 mls/hr Q8HRS IV Last administered on 02/01/19at 14:17; Start 02/01/19 at 06:00; Stop 02/01/19 at 14:27; Status DC Metronidazole 100 ml @ 100 mls/hr 1X ONCE IV Last administered on 01/31/19at 23:03; Start 01/31/19 at 23:00; Stop 01/31/19 at 23:59; Status DC Vancomycin HCl 250 ml @ 250 mls/hr 1X ONCE IV ; Start 01/31/19 at 22:45; Stop 01/31/19 at 23:44; Status UNV Sodium Chloride 1,000 ml @ 1,000 mls/hr 1X ONCE IV Last administered on at 23:02; Start 01/31/19 at 23:00; Stop 01/31/19 at 23:59; Status DC Vancomycin HCl (Vanco Per Pharmacy) 1 each PRN DAILY PRN MC SEE COMMENTS Last administered on 02/01/19at 13:44; Start 01/31/19 at 22:45; Stop 02/01/19 at 14:31; Status DC Vancomycin HCl 2 gm/Sodium Chloride 500 ml @ 250 mls/hr 1X ONCE IV Last administered on 02/01/19at 00:23; Start 01/31/19 at 23:00; Stop 02/01/19 at 00:59; Status DC Ondansetron HCl (Zofran) 4 mg PRN Q8HRS PRN IV NAUSEA/VOMITING 1ST CHOICE Last administered on 01/31/19at 23:01; Start 01/31/19 at 22:45; Stop 02/01/19 at 22:44; Status DC Morphine Sulfate (Morphine Sulfate) 4 mg PRN Q4HRS PRN IV SEVERE PAIN Last administered on 02/01/19at 19:50; Start 01/31/19 at 22:45; Stop 02/01/19 at 22:44; Status DC Piperacillin Sod/ Tazobactam Sod 3.375 gm/Sodium Chloride 50 ml @ 100 mls/hr Q6HRS IV Last administered on 02/01/19 05:55; Start 02/01/19 at 06:00; Stop 02/01/19 at 06:02; Status DC Vancomycin HCl 1.5 gm/Sodium Chloride 500 ml @ 250 mls/hr Q8H IV Last administ ered on 02/01/19at 08:31; Start 02/01/19 at 09:00; Stop 02/01/19 at 14:31; Status DC Vancomycin HCl (Vancomycin Trough Level) 1 each 1X ONCE MC ; Start 02/02/19 at 00:30; Stop 02/02/19 at 00:30; Status DC Enoxaparin Sodium (Lovenox 40mg Syringe) 40 mg Q24H SQ Last administered on 02/08/19 17:49; Start 02/01/19 at 16:00 Pantoprazole Sodium (PROTONIX VIAL for IV PUSH) 40 mg DAILYAC IVP Last administered on 02/04/19 08:25; Start 02/01/19 at 15:00; Stop 02/04/19 at 20:25; Status DC Morphine Sulfate (Morphine Sulfate) 4 mg PRN Q4HRS PRN IV SEVERE PAIN Last administered on 02/08/19 10:59; Start 02/02/19 at 00:30 Piperacillin Sod/ Tazobactam Sod 3.375 gm/Sodium Chloride 50 ml @ 100 mls/hr Q6HRS IV Last administered on 02/09/19 06:05; Start 02/02/19 at 12:00 Acetaminophen (Tylenol) 650 mg PRN Q6HRS PRN PO FEVER Last administered on 02/03/19 19:56; Start 02/02/19 at 19:45 Labetalol HCl (Normodyne Iv Push) 10 mg PRN Q2HR PRN IVP HYPERTENSION, SEE COMMENTS Last administered on 02/02/19at 23:53; Start 02/02/19 at 23:30; Stop 02/03/19 at 13:48; Status DC Labetalol HCl (Normodyne Iv Push) 20 mg PRN Q2HR PRN IVP HYPERTENSION, 2ND CHOICE Last administered on 02/03/19 17:33; Start 02/03/19 at 01:30 Hydralazine HCl (Apresoline Inj) 10 mg PRN Q4HRS PRN IVP ELEVATED BP, 1ST CHOICE Last administered on 02/06/19 17:35; Start 02/03/19 at 01:30 Lisinopril (Prinivil) 10 mg DAILY PO Last administered on 02/04/19 08:26; Start 02/03/19 at 12:00; Stop 02/04/19 at 10:43; Status DC Lidocaine/Sodium Bicarbonate (Buffered Lidocaine 1%) 3 ml STK-MED ONCE .ROUTE ; Start 02/03/19 at 12:08; Stop 02/03/19 at 12:09; Status DC Midazolam HCl (Versed) 2 mg STK-MED ONCE .ROUTE ; Start 02/03/19 at 12:09; Stop 02/03/19 at 12:10; Status DC Fentanyl Citrate (Fentanyl 2ml Vial) 100 mcg STK-MED ONCE .ROUTE ; Start 02/03/19 at 12:10; Stop 02/03/19 at 12:11; Status DC Lidocaine/Sodium Bicarbonate (Buffered Lidocaine 1%) 3 ml 1X ONCE IJ Last administered on 02/03/19at 12:30; Start 02/03/19 at 12:30; Stop 02/03/19 at 12:31; Status DC Midazolam HCl (Versed) 2 mg 1X ONCE IV Last administered on 02/03/19at 12:30; Start 02/03/19 at 12:30; Stop 02/03/19 at 12:31; Status DC Fentanyl Citrate (Fentanyl 2ml Vial) 100 mcg 1X ONCE IV Last administered on 02/03/19 12:30; Start 02/03/19 at 12:30; Stop 02/03/19 at 12:31; Status DC Oxycodone/ Acetaminophen (Percocet 7.5/ 325) 1 tab PRN Q4HRS PRN PO SEVERE PAIN Last administered on 02/09/19 06:03; Start 02/03/19 at 13:45 Lactobacillus Rhamnosus (Culturelle) 1 cap BID PO Last administered on 02/09/19 10:08; Start 02/03/19 at 21:00 Linezolid/Dextrose 300 ml @ 300 mls/hr Q12HR IV Last administered on 02/07/19 10:12; Start 02/03/19 at 21:00; Stop 02/07/19 at 10:33; Status DC Nicotine (Nicoderm Cq 21mg) 1 patch PRN DAILY PRN TD SMOKING CESSATION Last administered on 02/07/19 20:28; Start 02/03/19 at 21:45 Pantoprazole Sodium (Protonix) 40 mg DAILYAC PO Last administered on 02/09/19 06:03; Start 02/05/19 at 07:30 Carvedilol (Coreg) 6.25 mg BIDWMEALS PO Last administered on 02/09/19 10:08; Start 02/05/19 at 08:30 Metoprolol Tartrate (Lopressor Vial) 5 mg PRN Q4HRS PRN IVP HYPERTENSION, SEE COMMENTS Last administered on 02/07/19 10:18; Start 02/07/19 at 08:30 Lisinopril (Prinivil) 5 mg DAILY PO Last administered on 02/09/19 10:08; Start 02/09/19 at 09:00 Lisinopril (Prinivil) 5 mg 1X ONCE PO Last administered on 02/08/19 20:23; Start 02/08/19 at 19:45; Stop 02/08/19 at 19:46; Status DC Iohexol (Omnipaque 300 Mg/ml) 75 ml 1X ONCE IV ; Start 02/09/19 at 13:00; Stop 02/09/19 at 13:01; Status DC Iohexol (Omnipaque 240 Mg/ml) 50 ml 1X ONCE PO ; Start 02/09/19 at 13:00; Stop 02/09/19 at 13:01; Status DC Info (CONTRAST GIVEN -- Rx MONITORING) 1 each PRN DAILY PRN MC SEE COMMENTS; Start 02/09/19 at 13:15; Stop 02/11/19 at 13:14 Active Scripts Active Ibuprofen 600 Mg Tablet 600 Mg PO PRN Q6HRS PRN Vitals/I & O Vital Sign - Last 24 Hours 02/08/19 02/08/19 02/08/19 02/08/19 15:00 17:50 19:29 20:00 Temp 98.8 98.2 98.8 98.2 Pulse 93 81 92 Resp 20 18 B/P (MAP) 171/103 (125) 174/105 161/103 (122) Pulse Ox 95 98 O2 Delivery Room Air Room Air Room Air 02/08/19 02/08/19 02/09/19 02/09/19 20:23 23:00 03:29 07:00 Temp 98.2 98.2 97.8 98.2 98.2 97.8 Pulse 92 97 89 109 Resp 18 20 18 B/P (MAP) 161/103 158/96 (116) 148/96 (113) 138/79 (98) Pulse Ox 97 93 94 O2 Delivery Room Air Room Air Room Air 02/09/19 02/09/19 02/09/19 02/09/19 07:03 10:08 10:08 11:00 Temp 98.1 98.1 Pulse 109 109 86 Resp 20 18 B/P (MAP) 138/79 138/79 156/108 (124) Pulse Ox 97 O2 Delivery Room Air Room Air Intake and Output 02/08/19 02/08/19 02/09/19 14:59 22:59 06:59 Intake Total 450 ml 450 ml 920 ml Output Total 1100 ml 10 ml Balance -650 ml 450 ml 910 ml HARLAN WINSTON MD February 09, 2019 14:42
[2019-02-09 15:00] VITALS: BP 147/89
--- NOTE | 2019-02-09 16:44 | PDOC ---
Infectious Disease Note Subjective Subjective Feeling fine, wants to go home Vital Sign Vital Signs Vital Signs Date Time Temp Pulse Resp B/P (MAP) Pulse Ox O2 Delivery O2 Flow Rate FiO2 02/09/19 15:00 97.7 96 18 147/89 (108) 94 Room Air 97.7 02/08/19 08:00 4.0 Physical Exam PHYSICAL EXAM GENERAL: Resting quietly, arouses easily to name HEENT: Oral cavity clear LUNGS: Clear to auscultation. HEART: S1 and S2. ABDOMEN: soft, NT, HUMA intact EXT: No gross edema or cyanosis SKIN: Warm without rash. NEUROLOGIC: Responds appropriately Labs Lab Laboratory Tests Test 02/09/19 12:15 White Blood Count 11.7 x10^3/uL (4.0-11.0) Red Blood Count 4.72 x10^6/uL (4.30-5.70) Hemoglobin 13.1 g/dL (13.0-17.5) Hematocrit 40.1 % (39.0-53.0) Mean Corpuscular Volume 85 fL (79-100) Mean Corpuscular Hemoglobin 28 pg (25-35) Mean Corpuscular Hemoglobin Concent 33 g/dL (31-37) Red Cell Distribution Width 14.9 % (11.5-14.5) Platelet Count 510 x10^3/uL (140-400) Neutrophils (%) (Auto) 79 % (31-73) Lymphocytes (%) (Auto) 12 % (24-48) Monocytes (%) (Auto) 7 % (0-9) Eosinophils (%) (Auto) 2 % (0-3) Basophils (%) (Auto) 0 % (0-3) Neutrophils # (Auto) 9.2 x10^3uL (1.8-7.7) Lymphocytes # (Auto) 1.4 x10^3/uL (1.0-4.8) Monocytes # (Auto) 0.8 x10^3/uL (0.0-1.1) Eosinophils # (Auto) 0.3 x10^3/uL (0.0-0.7) Basophils # (Auto) 0.1 x10^3/uL (0.0-0.2) Segmented Neutrophils % 71 % (35-66) Band Neutrophils % 8 % (0-9) Lymphocytes % 11 % (24-48) Monocytes % 6 % (0-10) Eosinophils % 2 % (0-5) Metamyelocytes % 1 % (0-0) Myelocytes % 1 % (0-0) Platelet Estimate Increased (ADEQUATE) Polychromasia Slight Sodium Level 135 mmol/L (136-145) Potassium Level 4.3 mmol/L (3.5-5.1) Chloride Level 100 mmol/L (98-107) Carbon Dioxide Level 27 mmol/L (21-32) Anion Gap 8 (6-14) Blood Urea Nitrogen 19 mg/dL (8-26) Creatinine 1.4 mg/dL (0.7-1.3) Estimated GFR (Cockcroft-Gault) 52.4 Glucose Level 100 mg/dL (70-99) Calcium Level 9.0 mg/dL (8.5-10.1) 1. Decreased size of the complex gas and fluid collection within the left retroperitoneum status post percutaneous pigtail catheter placement. There is fatty stranding trace fluid along the course of the catheter and surrounding the aforementioned complex collection. No new drainable fluid collection is seen. 2. Slightly prominent left renal collecting system due to mass effect from the aforementioned retroperitoneal fluid collection. This has slightly decreased compared to the prior study. 3. Colonic diverticulosis. 4. Small fat-containing umbilical and supraumbilical hernias. 5. Slight increased bilateral lower lobe atelectasis. Micro Microbiology 01/31/19 Blood Culture - Preliminary, Resulted NO GROWTH AFTER 1 DAY Objective Assessment Sepsis, improved Pelvic abscess measuring 5.1 x 3.4 cm and contains considerable surrounding inflammation. s/p drainage, 02/01. E. coli (R amp, quinolones) and bacteroides. No growth of GPC on gram stain. ? perforated diverticulitis Urine tox positive for meth. Patient denies drug use. MERI Plan Plan of Care Continue Zosyn Off Zyvox am labs CT reviewed Pt seen and examined, agree with above A/P per [employer] ASSISTANT MESHA CRABTREE APRN February 09, 2019 16:44 DILLON BOLIVAR MD February 09, 2019 17:26
[2019-02-09] MEDS: ENOXAPARIN 40 MG/0.4 ML SYRINGE. SQ SCH (18:19)
[2019-02-09 23:57] VITALS: BP 142/92
[2019-02-10] MEDS: PIPERACILLIN/TAZOBACTAM 3.375 GM in IV NORMAL SALINE 50ML 50 ML IV SCH ×4 (00:08→17:17)
[2019-02-10 03:23] VITALS: BP 144/90
[2019-02-10 07:00] VITALS: BP 147/87
[2019-02-10] MEDS: PANTOPRAZOLE 40 MG TABLET.DR. PO SCH (08:03)
--- NOTE | 2019-02-10 10:05 | PDOC ---
Infectious Disease Note Subjective: Subjective Feeling fine, wants to go home ROS: ROS no f/c/n/v/d Vital Signs: Vital Signs Vital Signs Date Time Temp Pulse Resp B/P (MAP) Pulse Ox O2 Delivery O2 Flow Rate FiO2 02/10/19 07:45 Room Air 02/10/19 07:00 98.3 91 18 147/87 (107) 94 98.3 Physical Exam: PHYSICAL EXAM GENERAL: Resting quietly HEENT: Oral cavity clear LUNGS: Clear to auscultation. HEART: S1 and S2. ABDOMEN: soft, NT, HUMA intact EXT: No gross edema or cyanosis SKIN: Warm without rash. NEUROLOGIC: Responds appropriately Medications: Inpatient Meds: Current Medications Medications (Trade) Dose Ordered Sig/Juwan Start Time Stop Time Status Last Admin Dose Admin Acetaminophen (Tylenol) 650 mg PRN Q6HRS PRN 02/02/19 19:45 02/03/19 19:56 650 MG Carvedilol (Coreg) 6.25 mg BIDWMEALS 02/05/19 08:30 02/09/19 18:19 6.25 MG Enoxaparin Sodium (Lovenox 40mg Syringe) 40 mg Q24H 02/01/19 16:00 02/09/19 18:19 40 MG Fentanyl Citrate (Fentanyl 2ml Vial) 100 mcg 1X ONCE 02/03/19 12:30 02/03/19 12:31 DC 02/03/19 12:30 100 MCG Hydralazine HCl (Apresoline Inj) 10 mg PRN Q4HRS PRN 02/03/19 01:30 02/06/19 17:35 10 MG Info (CONTRAST GIVEN -- Rx MONITORING) 1 each PRN DAILY PRN 02/09/19 13:15 02/11/19 13:14 Iohexol (Omnipaque 240 Mg/ml) 50 ml 1X ONCE 02/09/19 13:00 02/09/19 13:01 DC Iohexol (Omnipaque 300 Mg/ml) 75 ml 1X ONCE 02/09/19 13:00 02/09/19 13:01 DC Labetalol HCl (Normodyne Iv Push) 20 mg PRN Q2HR PRN 02/03/19 01:30 02/03/19 17:33 20 MG Lactobacillus Rhamnosus (Culturelle) 1 cap BID 02/03/19 21:00 02/09/19 20:41 1 CAP Lidocaine/Sodium Bicarbonate (Buffered Lidocaine 1%) 3 ml 1X ONCE 02/03/19 12:30 02/03/19 12:31 DC 02/03/19 12:30 6 ML Linezolid/Dextrose 300 ml @ 300 mls/hr Q12HR 02/03/19 21:00 02/07/19 10:33 DC 02/07/19 10:12 300 MLS/HR Lisinopril (Prinivil) 5 mg 1X ONCE 02/08/19 19:45 02/08/19 19:46 DC 02/08/19 20:23 5 MG Metoprolol Tartrate (Lopressor Vial) 5 mg PRN Q4HRS PRN 02/07/19 08:30 02/07/19 10:18 5 MG Metronidazole 100 ml @ 100 mls/hr 1X ONCE 01/31/19 23:00 01/31/19 23:59 DC 01/31/19 23:03 100 MLS/HR Midazolam HCl (Versed) 2 mg 1X ONCE 02/03/19 12:30 02/03/19 12:31 DC 02/03/19 12:30 2 MG Morphine Sulfate (Morphine Sulfate) 4 mg PRN Q4HRS PRN 02/02/19 00:30 02/08/19 10:59 4 MG Nicotine (Nicoderm Cq 21mg) 1 patch PRN DAILY PRN 02/03/19 21:45 02/07/19 20:28 1 PATCH Ondansetron HCl (Zofran) 4 mg PRN Q8HRS PRN 01/31/19 22:45 02/01/19 22:44 DC 01/31/19 23:01 4 MG Oxycodone/ Acetaminophen (Percocet 7.5/ 325) 1 tab PRN Q4HRS PRN 02/03/19 13:45 02/09/19 21:54 1 TAB Pantoprazole Sodium (PROTONIX VIAL for IV PUSH) 40 mg DAILYAC 02/01/19 15:00 02/04/19 20:25 DC 02/04/19 08:25 40 MG Pantoprazole Sodium (Protonix) 40 mg DAILYAC 02/05/19 07:30 02/10/19 08:03 40 MG Piperacillin Sod/ Tazobactam Sod 3.375 gm/Sodium Chloride 50 ml @ 100 mls/hr Q6HRS 02/02/19 12:00 02/10/19 08:03 100 MLS/HR Sodium Chloride 1,000 ml @ 1,000 mls/hr 1X ONCE 01/31/19 23:00 01/31/19 23:59 DC 01/31/19 23:02 1,000 MLS/HR Vancomycin HCl (Vanco Per Pharmacy) 1 each PRN DAILY PRN 01/31/19 22:45 02/01/19 14:31 DC 02/01/19 13:44 1 EACH Vancomycin HCl (Vancomycin Trough Level) 1 each 1X ONCE 02/02/19 00:30 02/02/19 00:30 DC Vancomycin HCl 1.5 gm/Sodium Chloride 500 ml @ 250 mls/hr Q8H 02/01/19 09:00 02/01/19 14:31 DC 02/01/19 08:31 250 MLS/HR Vancomycin HCl 2 gm/Sodium Chloride 500 ml @ 250 mls/hr 1X ONCE 01/31/19 23:00 02/01/19 00:59 DC 02/01/19 00:23 250 MLS/HR Labs: Lab Laboratory Tests Test 02/09/19 12:15 White Blood Count 11.7 x10^3/uL (4.0-11.0) Red Blood Count 4.72 x10^6/uL (4.30-5.70) Hemoglobin 13.1 g/dL (13.0-17.5) Hematocrit 40.1 % (39.0-53.0) Mean Corpuscular Volume 85 fL (79-100) Mean Corpuscular Hemoglobin 28 pg (25-35) Mean Corpuscular Hemoglobin Concent 33 g/dL (31-37) Red Cell Distribution Width 14.9 % (11.5-14.5) Platelet Count 510 x10^3/uL (140-400) Neutrophils (%) (Auto) 79 % (31-73) Lymphocytes (%) (Auto) 12 % (24-48) Monocytes (%) (Auto) 7 % (0-9) Eosinophils (%) (Auto) 2 % (0-3) Basophils (%) (Auto) 0 % (0-3) Neutrophils # (Auto) 9.2 x10^3uL (1.8-7.7) Lymphocytes # (Auto) 1.4 x10^3/uL (1.0-4.8) Monocytes # (Auto) 0.8 x10^3/uL (0.0-1.1) Eosinophils # (Auto) 0.3 x10^3/uL (0.0-0.7) Basophils # (Auto) 0.1 x10^3/uL (0.0-0.2) Segmented Neutrophils % 71 % (35-66) Band Neutrophils % 8 % (0-9) Lymphocytes % 11 % (24-48) Monocytes % 6 % (0-10) Eosinophils % 2 % (0-5) Metamyelocytes % 1 % (0-0) Myelocytes % 1 % (0-0) Platelet Estimate Increased (ADEQUATE) Polychromasia Slight Sodium Level 135 mmol/L (136-145) Potassium Level 4.3 mmol/L (3.5-5.1) Chloride Level 100 mmol/L (98-107) Carbon Dioxide Level 27 mmol/L (21-32) Anion Gap 8 (6-14) Blood Urea Nitrogen 19 mg/dL (8-26) Creatinine 1.4 mg/dL (0.7-1.3) Estimated GFR (Cockcroft-Gault) 52.4 Glucose Level 100 mg/dL (70-99) Calcium Level 9.0 mg/dL (8.5-10.1) Micro 1. Decreased size of the complex gas and fluid collection within the left retroperitoneum status post percutaneous pigtail catheter placement. There is fatty stranding trace fluid along the course of the catheter and surrounding the aforementioned complex collection. No new drainable fluid collection is seen. 2. Slightly prominent left renal collecting system due to mass effect from the aforementioned retroperitoneal fluid collection. This has slightly decreased compared to the prior study. 3. Colonic diverticulosis. 4. Small fat-containing umbilical and supraumbilical hernias. 5. Slight increased bilateral lower lobe atelectasis. Micro Microbiology 01/31/19 Blood Culture - Preliminary, Resulted NO GROWTH AFTER 1 DAY RUN DATE: 02/07/19 PAGE 1 RUN TIME: 0107 [facility] [address] [place] [address] Jarred Boateng M.D., Director Inbound Sales PATIENT: ALECIA HOFFMAN ACCT: [id number] LOC: [address] [place] [address] U: [id number] AGE/SX: 58/M ROOM: 426 RE01/31/[address]: ELOY SKINNER MD : 1960 BED: 1 DIS: STATUS: ADM IN TLOC: SPEC #: [id number] WILLIAM: 02/03/19 STATUS: COMP REQ #: [id number] RECD: 02/03/[address] [facility] [address]: TOMMY ESTRADA MD SOURCE: PELVIS ENTR: 02/03/19-[address] [facility] [address]: AMELIA YAN MD SPDESC: BRI GREGG MD, IRA W MD NO PCP PASNOORI, VENKAT R MD ORDERED: SAMUEL/LESLIE/GHULAM Procedure Result ANAEROBIC-AEROBIC CULTURE Final Final report ANAEROBIC RES 1 Final Comment Bacteroides thetaiotaomicron 3+ AEROBIC CULT Final Final report AEROBIC RES 1 Final Escherichia coli Scant growth ANTIMICROBIAL SUSCEPTIBILITY Final Comment S = Susceptible; I = Intermediate; R = Resistant P = Positive; N = Negative MICS are expressed in micrograms per mL Antibiotic RSLT#1 RSLT#2 RSLT#3 RSLT#4 Amoxicillin/Clavulanic Acid S =8 Ampicillin R>=32 Cefepime S<=0.12 Ceftriaxone S<=0.25 Cefuroxime S =4 Ciprofloxacin R>=4 Ertapenem S<=0.12 Gentamicin S<=1 Imipenem S<=0.25 Levofloxacin R>=8 Meropenem S<=0.25 Piperacillin/Tazobactam S<=4 CONTINUED ON NEXT PAGE RUN DATE: 02/07/19 PAGE 2 RUN TIME: 1709 [facility] [address] [place] [address] Jarred Boateng M.D., Director Inbound Sales SPEC: [id number] PATIENT: YASIMNALECIA [id number] (Continued) Procedure Result - ANTIMICROBIAL SUSCEPTIBILITY Final (continued) Tetracycline S<=1 Tobramycin S<=1 Trimethoprim/Sulfa S<=20 GRAM STAIN Final Final report GRAM STAIN RES 1 Final Comment No white blood cells seen. GRAM STAIN RES 2 Final Gram positive cocci Rare seen GRAM STAIN RES 3 Final Comment Rare gram negative rods. Performed at: - [facility], [place], [place] [id number] [employer] Team Member: AFTAB Moralez MD, Phone: [phone] Objective: Assessment: Sepsis, improved Pelvic abscess measuring 5.1 x 3.4 cm and contains considerable surrounding inflammation. s/p drainage, 02/01. E. coli (R amp, quinolones) and bacteroides. No growth of GPC on gram stain. ? perforated diverticulitis Urine tox positive for meth. Patient denies drug use. MERI Plan: Plan of Care Continue Zosyn Off Zyvox am labs CT reviewed D/W DILLON AVILA MD February 10, 2019 10:05
--- NOTE | 2019-02-10 10:09 | PDOC ---
PROGRESS NOTES Chief Complaint Chief Complaint acute abdomen pain perforated diverticulum sepsis substance abuse History of Present Illness History of Present Illness broad iv abx advance diet drain exudate looks more clear today is translucent pain better repeat CT if drainage output stays low, MINIMAL DRAINAGE NOTED TODAY Decreased size of the complex gas and fluid collection within the left retroperitoneum status post percutaneous pigtail catheter placement. There is fatty stranding trace fluid along the course of the catheter and surrounding the aforementioned complex collection. No new drainable fluid collection is seen. METH POS IN UA DS ID and gen surg following, IV abd PO pain meds cbc, bmp today guarded prognosis due to substance abuse, compliance 47 MIN PT EXAM, CHART REVIEW, > 50% OF TIME SPENT WITH EXAM, CHART REVIEW, PT CARE COORDINATION Vitals Vitals Vital Signs Date Time Temp Pulse Resp B/P (MAP) Pulse Ox O2 Delivery O2 Flow Rate FiO2 02/10/19 07:45 Room Air 02/10/19 07:00 98.3 91 18 147/87 (107) 94 98.3 Physical Exam Physical Exam GENERAL: Resting quietly, arouses easily to name HEENT: Oral cavity clear LUNGS: Clear to auscultation. HEART: S1 and S2. ABDOMEN: soft, NT, JORDYN intact EXT: No gross edema or cyanosis SKIN: Warm without rash. NEUROLOGIC: Responds appropriately General: Alert, Oriented X3, Cooperative, No acute distress Heart: Regular rate, Normal S1, Normal S2, No murmurs Lungs: Clear Abdomen: Soft, No tenderness, Other (ND, NTTP, no drainage in jordyn ) Extremities: No clubbing, No cyanosis, No edema Skin: No rashes, No breakdown Labs LABS REASON: abd abscess, IR perc drain PROCEDURE: CT ABD PELV W/ORAL&IV CONTRAST EXAM: Abdomen and pelvis CT with intravenous contrast. HISTORY: Abscess. TECHNIQUE: Computed tomographic images of the abdomen and pelvis were obtained following the administration of 60 cc Omnipaque 300 intravenous contrast. Multiplanar reformatting was performed. *One or more of the following individualized dose reduction techniques were utilized for this examination: 1. Automated exposure control. 2. Adjustment of the mA and/or kV according to patient size. 3. Use of iterative reconstruction technique. COMPARISON: 02/03/2019 and 01/31/2019. FINDINGS: Evaluation of the lower thorax demonstrates slight increased right greater than left lower lobe atelectasis. There is no significant pleural effusion. The heart is normal in size. There are few calcified granulomas. No hepatic lesion is seen. The gallbladder, pancreas, spleen and adrenal glands are unremarkable. There is a percutaneous pigtail drainage catheter entering the ventral abdominal wall slightly inferior to the umbilicus to the right of midline to terminate within a complex air and fluid collection within the left retroperitoneum. There is trace fluid and stranding along the catheter trajectory. The gas and fluid collection measures 5.4 cm, compared to a prior measurement of approximately 7.0 cm. There is surrounding left peritoneal and retroperitoneal fatty stranding and trace fluid. No additional drainable fluid collision is seen. There is a slightly prominent left renal collecting system likely due to slight mass effect on the mid left ureter due to the aforementioned retroperitoneal fluid collection. The appendix is surgically absent. There is moderate colonic stool. There is colonic diverticulosis. The bladder is unremarkable. There are prominent retroperitoneal lymph nodes, likely reactive in etiology. There is a small fat-containing umbilical hernia. There are small right greater than left fat-containing supraumbilical hernias. There is gas within the left ventral abdominal wall likely due to a medication injection site. There is no suspicious osseous lesion. IMPRESSION: 1. Decreased size of the complex gas and fluid collection within the left retroperitoneum status post percutaneous pigtail catheter placement. There is fatty stranding trace fluid along the course of the catheter and surrounding the aforementioned complex collection. No new drainable fluid collection is seen. 2. Slightly prominent left renal collecting system due to mass effect from the aforementioned retroperitoneal fluid collection. This has slightly decreased compared to the prior study. 3. Colonic diverticulosis. 4. Small fat-containing umbilical and supraumbilical hernias. 5. Slight increased bilateral lower lobe atelectasis. Electronically signed by: Mildred Conrad MD (02/09/2019 2:07 PM) [facility] DICTATED and SIGNED BY: MILDRED CONRAD MD DATE: 02/09/19 1404 Laboratory Tests Test 02/09/19 12:15 White Blood Count 11.7 x10^3/uL (4.0-11.0) Red Blood Count 4.72 x10^6/uL (4.30-5.70) Hemoglobin 13.1 g/dL (13.0-17.5) Hematocrit 40.1 % (39.0-53.0) Mean Corpuscular Volume 85 fL (79-100) Mean Corpuscular Hemoglobin 28 pg (25-35) Mean Corpuscular Hemoglobin Concent 33 g/dL (31-37) Red Cell Distribution Width 14.9 % (11.5-14.5) Platelet Count 510 x10^3/uL (140-400) Neutrophils (%) (Auto) 79 % (31-73) Lymphocytes (%) (Auto) 12 % (24-48) Monocytes (%) (Auto) 7 % (0-9) Eosinophils (%) (Auto) 2 % (0-3) Basophils (%) (Auto) 0 % (0-3) Neutrophils # (Auto) 9.2 x10^3uL (1.8-7.7) Lymphocytes # (Auto) 1.4 x10^3/uL (1.0-4.8) Monocytes # (Auto) 0.8 x10^3/uL (0.0-1.1) Eosinophils # (Auto) 0.3 x10^3/uL (0.0-0.7) Basophils # (Auto) 0.1 x10^3/uL (0.0-0.2) Segmented Neutrophils % 71 % (35-66) Band Neutrophils % 8 % (0-9) Lymphocytes % 11 % (24-48) Monocytes % 6 % (0-10) Eosinophils % 2 % (0-5) Metamyelocytes % 1 % (0-0) Myelocytes % 1 % (0-0) Platelet Estimate Increased (ADEQUATE) Polychromasia Slight Sodium Level 135 mmol/L (136-145) Potassium Level 4.3 mmol/L (3.5-5.1) Chloride Level 100 mmol/L (98-107) Carbon Dioxide Level 27 mmol/L (21-32) Anion Gap 8 (6-14) Blood Urea Nitrogen 19 mg/dL (8-26) Creatinine 1.4 mg/dL (0.7-1.3) Estimated GFR (Cockcroft-Gault) 52.4 Glucose Level 100 mg/dL (70-99) Calcium Level 9.0 mg/dL (8.5-10.1) Assessment and Plan Assessmemt and Plan Problems Medical Problems: (1) Abscess of pelvis Status: Acute (2) Elevated blood pressure reading without diagnosis of hypertension Status: Acute (3) Methamphetamine abuse Status: Acute (4) SIRS (systemic inflammatory response syndrome) Status: Acute Comment Review of Relevant I have reviewed the following items ted (where applicable) has been applied. Labs Laboratory Tests Test 02/09/19 12:15 White Blood Count 11.7 x10^3/uL (4.0-11.0) Red Blood Count 4.72 x10^6/uL (4.30-5.70) Hemoglobin 13.1 g/dL (13.0-17.5) Hematocrit 40.1 % (39.0-53.0) Mean Corpuscular Volume 85 fL (79-100) Mean Corpuscular Hemoglobin 28 pg (25-35) Mean Corpuscular Hemoglobin Concent 33 g/dL (31-37) Red Cell Distribution Width 14.9 % (11.5-14.5) Platelet Count 510 x10^3/uL (140-400) Neutrophils (%) (Auto) 79 % (31-73) Lymphocytes (%) (Auto) 12 % (24-48) Monocytes (%) (Auto) 7 % (0-9) Eosinophils (%) (Auto) 2 % (0-3) Basophils (%) (Auto) 0 % (0-3) Neutrophils # (Auto) 9.2 x10^3uL (1.8-7.7) Lymphocytes # (Auto) 1.4 x10^3/uL (1.0-4.8) Monocytes # (Auto) 0.8 x10^3/uL (0.0-1.1) Eosinophils # (Auto) 0.3 x10^3/uL (0.0-0.7) Basophils # (Auto) 0.1 x10^3/uL (0.0-0.2) Segmented Neutrophils % 71 % (35-66) Band Neutrophils % 8 % (0-9) Lymphocytes % 11 % (24-48) Monocytes % 6 % (0-10) Eosinophils % 2 % (0-5) Metamyelocytes % 1 % (0-0) Myelocytes % 1 % (0-0) Platelet Estimate Increased (ADEQUATE) Polychromasia Slight Sodium Level 135 mmol/L (136-145) Potassium Level 4.3 mmol/L (3.5-5.1) Chloride Level 100 mmol/L (98-107) Carbon Dioxide Level 27 mmol/L (21-32) Anion Gap 8 (6-14) Blood Urea Nitrogen 19 mg/dL (8-26) Creatinine 1.4 mg/dL (0.7-1.3) Estimated GFR (Cockcroft-Gault) 52.4 Glucose Level 100 mg/dL (70-99) Calcium Level 9.0 mg/dL (8.5-10.1) Laboratory Tests Test 02/09/19 12:15 White Blood Count 11.7 x10^3/uL (4.0-11.0) Red Blood Count 4.72 x10^6/uL (4.30-5.70) Hemoglobin 13.1 g/dL (13.0-17.5) Hematocrit 40.1 % (39.0-53.0) Mean Corpuscular Volume 85 fL (79-100) Mean Corpuscular Hemoglobin 28 pg (25-35) Mean Corpuscular Hemoglobin Concent 33 g/dL (31-37) Red Cell Distribution Width 14.9 % (11.5-14.5) Platelet Count 510 x10^3/uL (140-400) Neutrophils (%) (Auto) 79 % (31-73) Lymphocytes (%) (Auto) 12 % (24-48) Monocytes (%) (Auto) 7 % (0-9) Eosinophils (%) (Auto) 2 % (0-3) Basophils (%) (Auto) 0 % (0-3) Neutrophils # (Auto) 9.2 x10^3uL (1.8-7.7) Lymphocytes # (Auto) 1.4 x10^3/uL (1.0-4.8) Monocytes # (Auto) 0.8 x10^3/uL (0.0-1.1) Eosinophils # (Auto) 0.3 x10^3/uL (0.0-0.7) Basophils # (Auto) 0.1 x10^3/uL (0.0-0.2) Segmented Neutrophils % 71 % (35-66) Band Neutrophils % 8 % (0-9) Lymphocytes % 11 % (24-48) Monocytes % 6 % (0-10) Eosinophils % 2 % (0-5) Metamyelocytes % 1 % (0-0) Myelocytes % 1 % (0-0) Platelet Estimate Increased (ADEQUATE) Polychromasia Slight Sodium Level 135 mmol/L (136-145) Potassium Level 4.3 mmol/L (3.5-5.1) Chloride Level 100 mmol/L (98-107) Carbon Dioxide Level 27 mmol/L (21-32) Anion Gap 8 (6-14) Blood Urea Nitrogen 19 mg/dL (8-26) Creatinine 1.4 mg/dL (0.7-1.3) Estimated GFR (Cockcroft-Gault) 52.4 Glucose Level 100 mg/dL (70-99) Calcium Level 9.0 mg/dL (8.5-10.1) Microbiology 02/03/19 Blood Culture - Final, Complete NO GROWTH AFTER 5 DAYS 01/31/19 Urine Culture - Final, Complete 01/31/19 Urine Culture Result 1 (LILY) - Final, Complete 02/03/19 Anaerobic/Aerobic Culture - Final, Complete 02/03/19 Anaerobic Culture Result 1 (LILY) - Final, Complete 02/03/19 Aerobic Culture - Final, Complete 02/03/19 Aerobic Culture Result 1 (LILY) - Final, Complete 02/03/19 Antimicrobic Susceptibility - Final, Complete 02/03/19 Gram Stain - Final, Complete 02/03/19 Gram Stain Result 1 (LILY) - Final, Complete 02/03/19 Gram Stain Result 2 (LILY) - Final, Complete 02/03/19 Gram Stain Result 3 (LILY) - Final, Complete Medications Current Medications Sodium Chloride 1,000 ml @ 1,000 mls/hr Q1H IV Last administered on 01/31/19at 20:42; Start 01/31/19 at 20:12; Stop 01/31/19 at 21:11; Status DC Fentanyl Citrate (Fentanyl 2ml Vial) 50 mcg 1X ONCE IV Last administered on 01/31/19at 20:49; Start 01/31/19 at 20:45; Stop 01/31/19 at 20:46; Status DC Ondansetron HCl (Zofran) 4 mg 1X ONCE IV Last administered on 01/31/19at 20:49; Start 01/31/19 at 20:45; Stop 01/31/19 at 20:46; Status DC Morphine Sulfate (Morphine Sulfate) 4 mg 1X ONCE IV Last administered on 01/31/19at 23:01; Start 01/31/19 at 23:00; Stop 01/31/19 at 23:01; Status DC Piperacillin Sod/ Tazobactam Sod 3.375 gm/Sodium Chloride 50 ml @ 100 mls/hr 1X ONCE IV Last administered on 01/31/19at 23:52; Start 01/31/19 at 23:00; Stop 01/31/19 at 23:29; Status DC Metronidazole 100 ml @ 100 mls/hr Q8HRS IV Last administered on 02/01/19at 14:17; Start 02/01/19 at 06:00; Stop 02/01/19 at 14:27; Status DC Metronidazole 100 ml @ 100 mls/hr 1X ONCE IV Last administered on 01/31/19at 23:03; Start 01/31/19 at 23:00; Stop 01/31/19 at 23:59; Status DC Vancomycin HCl 250 ml @ 250 mls/hr 1X ONCE IV ; Start 01/31/19 at 22:45; Stop 01/31/19 at 23:44; Status UNV Sodium Chloride 1,000 ml @ 1,000 mls/hr 1X ONCE IV Last administered on 01/31/19at 23:02; Start 01/31/19 at 23:00; Stop 01/31/19 at 23:59; Status DC Vancomycin HCl (Vanco Per Pharmacy) 1 each PRN DAILY PRN MC SEE COMMENTS Last administered on 02/01/19at 13:44; Start 01/31/19 at 22:45; Stop 02/01/19 at 14:31; Status DC Vancomycin HCl 2 gm/Sodium Chloride 500 ml @ 250 mls/hr 1X ONCE IV Last administered on 02/01/19at 00:23; Start 01/31/19 at 23:00; Stop 02/01/19 at 00:59; Status DC Ondansetron HCl (Zofran) 4 mg PRN Q8HRS PRN IV NAUSEA/VOMITING 1ST CHOICE Last administered on 01/31/19at 23:01; Start 01/31/19 at 22:45; Stop 02/01/19 at 22:44; Status DC Morphine Sulfate (Morphine Sulfate) 4 mg PRN Q4HRS PRN IV SEVERE PAIN Last administered on 02/01/19at 19:50; Start 01/31/19 at 22:45; Stop 02/01/19 at 22:44; Status DC Piperacillin Sod/ Tazobactam Sod 3.375 gm/Sodium Chloride 50 ml @ 100 mls/hr Q6HRS IV Last administered on 02/01/19at 05:55; Start 02/01/19 at 06:00; Stop 02/01/19 at 06:02; Status DC Vancomycin HCl 1.5 gm/Sodium Chloride 500 ml @ 250 mls/hr Q8H IV Last administered on 02/01/19at 08:31; Start 02/01/19 at 09:00; Stop 02/01/19 at 14:31; Status DC Vancomycin HCl (Vancomycin Trough Level) 1 each 1X ONCE MC ; Start 02/02/19 at 00:30; Stop 02/02/19 at 00:30; Status DC Enoxaparin Sodium (Lovenox 40mg Syringe) 40 mg Q24H SQ Last administered on 02/09/19 18:19; Start 02/01/19 at 16:00 Pantoprazole Sodium (PROTONIX VIAL for IV PUSH) 40 mg DAILYAC IVP Last administered on 02/04/19at 08:25; Start 02/01/19 at 15:00; Stop 02/04/19 at 20:25; Status DC Morphine Sulfate (Morphine Sulfate) 4 mg PRN Q4HRS PRN IV SEVERE PAIN Last administered on 02/08/19at 10:59; Start 02/02/19 at 00:30 Piperacillin Sod/ Tazobactam Sod 3.375 gm/Sodium Chloride 50 ml @ 100 mls/hr Q6HRS IV Last administered on 02/10/19at 08:03; Start 02/02/19 at 12:00 Acetaminophen (Tylenol) 650 mg PRN Q6HRS PRN PO FEVER Last administered on 02/03/19at 19:56; Start 02/02/19 at 19:45 Labetalol HCl (Normodyne Iv Push) 10 mg PRN Q2HR PRN IVP HYPERTENSION, SEE COMMENTS Last administered on 02/02/19at 23:53; Start 02/02/19 at 23:30; Stop 02/03/19 at 13:48; Status DC Labetalol HCl (Normodyne Iv Push) 20 mg PRN Q2HR PRN IVP HYPERTENSION, 2ND CHOICE Last administered on 02/03/19at 17:33; Start 02/03/19 at 01:30 Hydralazine HCl (Apresoline Inj) 10 mg PRN Q4HRS PRN IVP ELEVATED BP, 1ST CHOICE Last administered on 02/06/19 17:35; Start 02/03/19 at 01:30 Lisinopril (Prinivil) 10 mg DAILY PO Last administered on 02/04/19 08:26; Start 02/03/19 at 12:00; Stop 02/04/19 at 10:43; Status DC Lidocaine/Sodium Bicarbonate (Buffered Lidocaine 1%) 3 ml STK-MED ONCE .ROUTE ; Start 02/03/19 at 12:08; Stop 02/03/19 at 12:09; Status DC Midazolam HCl (Versed) 2 mg STK-MED ONCE .ROUTE ; Start 02/03/19 at 12:09; Stop 02/03/19 at 12:10; Status DC Fentanyl Citrate (Fentanyl 2ml Vial) 100 mcg STK-MED ONCE .ROUTE ; Start 02/03/19 at 12:10; Stop 02/03/19 at 12:11; Status DC Lidocaine/Sodium Bicarbonate (Buffered Lidocaine 1%) 3 ml 1X ONCE IJ Last administered on 02/03/19 12:30; Start 02/03/19 at 12:30; Stop 02/03/19 at 12:31; Status DC Midazolam HCl (Versed) 2 mg 1X ONCE IV Last administered on 02/03/19 12:30; Start 02/03/19 at 12:30; Stop 02/03/19 at 12:31; Status DC Fentanyl Citrate (Fentanyl 2ml Vial) 100 mcg 1X ONCE IV Last administered on 02/03/19 12:30; Start 02/03/19 at 12:30; Stop 02/03/19 at 12:31; Status DC Oxycodone/ Acetaminophen (Percocet 7.5/ 325) 1 tab PRN Q4HRS PRN PO SEVERE PAIN Last administered on 02/09/19 21:54; Start 02/03/19 at 13:45 Lactobacillus Rhamnosus (Culturelle) 1 cap BID PO Last administered on 02/09/19 20:41; Start 02/03/19 at 21:00 Linezolid/Dextrose 300 ml @ 300 mls/hr Q12HR IV Last administered on 02/07/19 10:12; Start 02/03/19 at 21:00; Stop 02/07/19 at 10:33; Status DC Nicotine (Nicoderm Cq 21mg) 1 patch PRN DAILY PRN TD SMOKING CESSATION Last administered on 02/07/19 20:28; Start 02/03/19 at 21:45 Pantoprazole Sodium (Protonix) 40 mg DAILYAC PO Last administered on 02/10/19 08:03; Start 02/05/19 at 07:30 Carvedilol (Coreg) 6.25 mg BIDWMEALS PO Last administered on 02/09/19 18:19; Start 02/05/19 at 08:30 Metoprolol Tartrate (Lopressor Vial) 5 mg PRN Q4HRS PRN IVP HYPERTENSION, SEE COMMENTS Last administered on 02/07/19 10:18; Start 02/07/19 at 08:30 Lisinopril (Prinivil) 5 mg DAILY PO Last administered on 02/09/19at 10:08; Start 02/09/19 at 09:00 Lisinopril (Prinivil) 5 mg 1X ONCE PO Last administered on 02/08/19at 20:23; Start 02/08/19 at 19:45; Stop 02/08/19 at 19:46; Status DC Iohexol (Omnipaque 300 Mg/ml) 75 ml 1X ONCE IV ; Start 02/09/19 at 13:00; Stop 02/09/19 at 13:01; Status DC Iohexol (Omnipaque 240 Mg/ml) 50 ml 1X ONCE PO ; Start 02/09/19 at 13:00; Stop 02/09/19 at 13:01; Status DC Info (CONTRAST GIVEN -- Rx MONITORING) 1 each PRN DAILY PRN MC SEE COMMENTS; Start 02/09/19 at 13:15; Stop 02/11/19 at 13:14 Active Scripts Active Ibuprofen 600 Mg Tablet 600 Mg PO PRN Q6HRS PRN Vitals/I & O Vital Sign - Last 24 Hours 02/09/19 02/09/19 02/09/19 02/09/19 11:00 15:00 18:19 18:29 Temp 98.1 97.7 98.1 97.7 Pulse 86 96 96 Resp 18 18 20 B/P (MAP) 156/108 (124) 147/89 (108) 147/89 Pulse Ox 97 94 O2 Delivery Room Air Room Air Room Air 02/09/19 02/09/19 02/10/19 02/10/19 20:00 23:57 03:23 07:00 Temp 98.4 98.6 98.3 98.4 98.6 98.3 Pulse 96 90 91 Resp 18 18 18 B/P (MAP) 142/92 (109) 144/90 (108) 147/87 (107) Pulse Ox 94 94 94 O2 Delivery Room Air Room Air Room Air Room Air 02/10/19 07:45 O2 Delivery Room Air Intake and Output 02/09/19 02/09/19 02/10/19 14:59 22:59 06:59 Intake Total 500 ml 540 ml Output Total 5 ml 350 ml Balance 495 ml 190 ml SUNDAR COBB MD February 10, 2019 10:09
[2019-02-10] MEDS: LACTOBACILLUS RHAMNOSUS GG 1 CAPSULE. PO SCH ×2 (10:14→21:16)
[2019-02-10] MEDS: CARVEDILOL 6.25 MG TABLET. PO SCH ×2 (10:14→16:27)
[2019-02-10] MEDS: LISINOPRIL 5 MG TABLET. PO SCH (10:14)
--- NOTE | 2019-02-10 10:28 | NUR ---
Assumed care from MARIVEL Al
[2019-02-10 10:47] LABS: BASO % 0 % (0-3); EOS # 0.2 x10^3/uL (0.0-0.7); EOS % 2 % (0-3); HEMATOCRIT 39.2 % (39.0-53.0); HEMOGLOBIN 12.9 g/dL (13.0-17.5); LYMPH # 1.2 x10^3/uL (1.0-4.8); LYMPH % 9 % (24-48); MEAN CORPUSCULAR HEMOGLOBIN 28 pg (25-35); MEAN CORPUSCULAR HGB CONC 33 g/dL (31-37); MEAN CORPUSCULAR VOLUME 84 fL (79-100); MONO # 0.9 x10^3/uL (0.0-1.1); MONO % 6 % (0-9); NEUT # 11.3 x10^3uL (1.8-7.7); NEUT % 82 % (31-73); PLATELET COUNT 530 x10^3/uL (140-400); RED BLOOD COUNT 4.66 x10^6/uL (4.30-5.70); RED CELL DISTRIBUTION WIDTH 15.1 % (11.5-14.5); WHITE BLOOD COUNT 13.6 x10^3/uL (4.0-11.0)
[2019-02-10 10:53] LABS: CREATININE 1.3 mg/dL (0.7-1.3); GFR 57.1; POTASSIUM 4.2 mmol/L (3.5-5.1)
--- NOTE | 2019-02-10 10:57 | NUR ---
SW following for discharge planning. Discussed with RN, no SW needs identified, pt has been given self pay resource packet. RN anticipates pt should discharge home today.
[2019-02-10 11:00] VITALS: BP 132/82
--- NOTE | 2019-02-10 11:02 | PDOC ---
ROCIO KEYES RN PERITONE[facility] DIALYSIS 02/10/19 1102: SURGICAL PROGRESS NOTE Subjective upset because still here drain not having output wants home tomorrow, wont be here on his birthday Vital Signs Vital Signs Date Time Temp Pulse Resp B/P (MAP) Pulse Ox O2 Delivery O2 Flow Rate FiO2 02/10/19 10:14 91 147/87 02/10/19 07:45 Room Air 02/10/19 07:00 98.3 18 94 98.3 I&O Intake and Output 02/10/19 07:00 Intake Total 1040 ml Output Total 355 ml Balance 685 ml Intake Oral 1040 ml Output Urine Total 350 ml Drainage Total 5 ml # Voids 1 General: Alert, Oriented X3, Cooperative, No acute distress Abdomen: Soft, Other (drain with no drainage) Labs Laboratory Tests Test 02/09/19 12:15 02/10/19 10:25 White Blood Count 11.7 x10^3/uL (4.0-11.0) 13.6 x10^3/uL (4.0-11.0) Red Blood Count 4.72 x10^6/uL (4.30-5.70) 4.66 x10^6/uL (4.30-5.70) Hemoglobin 13.1 g/dL (13.0-17.5) 12.9 g/dL (13.0-17.5) Hematocrit 40.1 % (39.0-53.0) 39.2 % (39.0-53.0) Mean Corpuscular Volume 85 fL (79-100) 84 fL (79-100) Mean Corpuscular Hemoglobin 28 pg (25-35) 28 pg (25-35) Mean Corpuscular Hemoglobin Concent 33 g/dL (31-37) 33 g/dL (31-37) Red Cell Distribution Width 14.9 % (11.5-14.5) 15.1 % (11.5-14.5) Platelet Count 510 x10^3/uL (140-400) 530 x10^3/uL (140-400) Neutrophils (%) (Auto) 79 % (31-73) 82 % (31-73) Lymphocytes (%) (Auto) 12 % (24-48) 9 % (24-48) Monocytes (%) (Auto) 7 % (0-9) 6 % (0-9) Eosinophils (%) (Auto) 2 % (0-3) 2 % (0-3) Basophils (%) (Auto) 0 % (0-3) 0 % (0-3) Neutrophils # (Auto) 9.2 x10^3uL (1.8-7.7) 11.3 x10^3uL (1.8-7.7) Lymphocytes # (Auto) 1.4 x10^3/uL (1.0-4.8) 1.2 x10^3/uL (1.0-4.8) Monocytes # (Auto) 0.8 x10^3/uL (0.0-1.1) 0.9 x10^3/uL (0.0-1.1) Eosinophils # (Auto) 0.3 x10^3/uL (0.0-0.7) 0.2 x10^3/uL (0.0-0.7) Basophils # (Auto) 0.1 x10^3/uL (0.0-0.2) 0.0 x10^3/uL (0.0-0.2) Segmented Neutrophils % 71 % (35-66) Band Neutrophils % 8 % (0-9) Lymphocytes % 11 % (24-48) Monocytes % 6 % (0-10) Eosinophils % 2 % (0-5) Metamyelocytes % 1 % (0-0) Myelocytes % 1 % (0-0) Platelet Estimate Increased (ADEQUATE) Polychromasia Slight Sodium Level 135 mmol/L (136-145) 134 mmol/L (136-145) Potassium Level 4.3 mmol/L (3.5-5.1) 4.2 mmol/L (3.5-5.1) Chloride Level 100 mmol/L (98-107) 98 mmol/L (98-107) Carbon Dioxide Level 27 mmol/L (21-32) 26 mmol/L (21-32) Anion Gap 8 (6-14) 10 (6-14) Blood Urea Nitrogen 19 mg/dL (8-26) 19 mg/dL (8-26) Creatinine 1.4 mg/dL (0.7-1.3) 1.3 mg/dL (0.7-1.3) Estimated GFR (Cockcroft-Gault) 52.4 57.1 Glucose Level 100 mg/dL (70-99) 137 mg/dL (70-99) Calcium Level 9.0 mg/dL (8.5-10.1) 9.0 mg/dL (8.5-10.1) Laboratory Tests Test 02/09/19 12:15 02/10/19 10:25 White Blood Count 11.7 x10^3/uL (4.0-11.0) 13.6 x10^3/uL (4.0-11.0) Red Blood Count 4.72 x10^6/uL (4.30-5.70) 4.66 x10^6/uL (4.30-5.70) Hemoglobin 13.1 g/dL (13.0-17.5) 12.9 g/dL (13.0-17.5) Hematocrit 40.1 % (39.0-53.0) 39.2 % (39.0-53.0) Mean Corpuscular Volume 85 fL (79-100) 84 fL (79-100) Mean Corpuscular Hemoglobin 28 pg (25-35) 28 pg (25-35) Mean Corpuscular Hemoglobin Concent 33 g/dL (31-37) 33 g/dL (31-37) Red Cell Distribution Width 14.9 % (11.5-14.5) 15.1 % (11.5-14.5) Platelet Count 510 x10^3/uL (140-400) 530 x10^3/uL (140-400) Neutrophils (%) (Auto) 79 % (31-73) 82 % (31-73) Lymphocytes (%) (Auto) 12 % (24-48) 9 % (24-48) Monocytes (%) (Auto) 7 % (0-9) 6 % (0-9) Eosinophils (%) (Auto) 2 % (0-3) 2 % (0-3) Basophils (%) (Auto) 0 % (0-3) 0 % (0-3) Neutrophils # (Auto) 9.2 x10^3uL (1.8-7.7) 11.3 x10^3uL (1.8-7.7) Lymphocytes # (Auto) 1.4 x10^3/uL (1.0-4.8) 1.2 x10^3/uL (1.0-4.8) Monocytes # (Auto) 0.8 x10^3/uL (0.0-1.1) 0.9 x10^3/uL (0.0-1.1) Eosinophils # (Auto) 0.3 x10^3/uL (0.0-0.7) 0.2 x10^3/uL (0.0-0.7) Basophils # (Auto) 0.1 x10^3/uL (0.0-0.2) 0.0 x10^3/uL (0.0-0.2) Segmented Neutrophils % 71 % (35-66) Band Neutrophils % 8 % (0-9) Lymphocytes % 11 % (24-48) Monocytes % 6 % (0-10) Eosinophils % 2 % (0-5) Metamyelocytes % 1 % (0-0) Myelocytes % 1 % (0-0) Platelet Estimate Increased (ADEQUATE) Polychromasia Slight Sodium Level 135 mmol/L (136-145) 134 mmol/L (136-145) Potassium Level 4.3 mmol/L (3.5-5.1) 4.2 mmol/L (3.5-5.1) Chloride Level 100 mmol/L (98-107) 98 mmol/L (98-107) Carbon Dioxide Level 27 mmol/L (21-32) 26 mmol/L (21-32) Anion Gap 8 (6-14) 10 (6-14) Blood Urea Nitrogen 19 mg/dL (8-26) 19 mg/dL (8-26) Creatinine 1.4 mg/dL (0.7-1.3) 1.3 mg/dL (0.7-1.3) Estimated GFR (Cockcroft-Gault) 52.4 57.1 Glucose Level 100 mg/dL (70-99) 137 mg/dL (70-99) Calcium Level 9.0 mg/dL (8.5-10.1) 9.0 mg/dL (8.5-10.1) Problem List Problems Medical Problems: (1) Abscess of pelvis Status: Acute (2) Elevated blood pressure reading without diagnosis of hypertension Status: Acute (3) Methamphetamine abuse Status: Acute (4) SIRS (systemic inflammatory response syndrome) Status: Acute Assessment/Plan CT reviewed, fluid collection persists, smaller-minimal drain output will ask IR to eval drain AMELIA YAN MD 02/10/19 1609: SURGICAL PROGRESS NOTE Assessment/Plan Pt seen and examined. Agree with Ms. Keyes's note Pt reports feeling well, no significant pain, No N/v passing multiple stools abd soft, ND, NTTP, drain with min output OK to work on d/c ROCIO KEYES APRN February 10, 2019 11:02 AMELIA YAN MD February 10, 2019 16:09
[2019-02-10] MEDS ORDERED: GELATIN SPONGE SIZE 12-7MM SPONGE. ONE (14:34)
[2019-02-10] MEDS ORDERED: IOHEXOL 240 MG/ML 50ML VIAL. ONE (14:44)
[2019-02-10 15:00] VITALS: BP 145/96
--- NOTE | 2019-02-10 15:21 | PDOC ---
Provider Note Provider Note IR NOTE Abscessogram: Catheter initially clogged. Cleared with flushing. Abscess cavity much smaller, as seen on CT. Drain output still turbid. Recommend continued drainage with 10 cc NS bid flushing. When output decreases to 5-10 cc daily (not including flush) and is serous/serosanguineous in appearance, drain can be removed. Optionally, CT before drain removal can be performed to ensure no residual cavity. TOMMY ESTRADA MD February 10, 2019 15:21
--- NOTE | 2019-02-10 15:24 | NUR ---
Called and talked w/ Jaki RN pt's nurse on the floor today. pt needs to have rt abd drain flushed w/ 10cc of NS BID per previous order. also pt needs to cont drain at this time. pt needs to be educated on home care of drain and bulb care, he will need instructions on how to flush drain at home BID. and how to clean around drain and dress it.
--- NOTE | 2019-02-10 15:32 | NUR ---
Returned from procedure per bed, alert/oriented, HUMA drain intact with serosanguineous drainage, pt stated again no one had flushed drain since insertion, notfied he would need to flush twice a day at dismissal, will give further education has visitors at bedside at this time
--- NOTE | 2019-02-10 15:35 | RAD ---
02/10/2019 abscessogram Indication: The patient is status post percutaneous drain placement for a pelvic abscess with residual fluid and air collection on CT imaging. Discussion: The risks and benefits of the procedure were discussed the patient. Informed consent was obtained. Timeout procedure was performed. The pre-existing drain was evaluated under fluoroscopy and found to be in expected position. The drain was initially clogged, but was opened with flushing. Patient reports that his drain has not been flushed in several days. Contrast was administered confirming a residual small cavity. The injected contrast was completely aspirated consistent with adequate drain function. The catheter was then flushed and returned to bulb suction. More aggressive flushing of the catheter was recommended, with repeat orders placed in the chart. Impression: Improvement in, but persistent residual pelvic abscess cavity. Continued percutaneous drainage recommended.
--- NOTE | 2019-02-10 15:39 | NUR ---
Dr. Gooden here to see & assess after return from Interventional Radiology
--- NOTE | 2019-02-10 16:06 | NUR ---
Education given regarding Jorge Strickland drain-written & demonstration, supplies for 1 week given-NS flush, measuring cups, alcohol swabs, gloves. Questions answered anxious for dismissal tomorrow
[2019-02-10] MEDS: ENOXAPARIN 40 MG/0.4 ML SYRINGE. SQ SCH (16:27)
[2019-02-10 19:00] VITALS: BP 150/94
[2019-02-10 23:00] VITALS: BP 147/93
[2019-02-11] MEDS: oxyCODONE/APAP 7.5/325 1 TAB TABLET PO PRN (00:57)
[2019-02-11 03:00] VITALS: BP 130/80
[2019-02-11] MEDS: PIPERACILLIN/TAZOBACTAM 3.375 GM in IV NORMAL SALINE 50ML 50 ML IV SCH ×4 (05:54→12:15)
[2019-02-11 07:00] VITALS: BP 140/82
[2019-02-11] MEDS: LACTOBACILLUS RHAMNOSUS GG 1 CAPSULE. PO SCH (09:20)
[2019-02-11] MEDS: CARVEDILOL 6.25 MG TABLET. PO SCH (09:21)
[2019-02-11] MEDS: PANTOPRAZOLE 40 MG TABLET.DR. PO SCH (09:22)
[2019-02-11] MEDS: LISINOPRIL 5 MG TABLET. PO SCH (09:22)
--- NOTE | 2019-02-11 09:39 | PDOC ---
ROCIO KEYES GLOBAL PROCESS OWNER 02/11/19 0939: SURGICAL PROGRESS NOTE Subjective hoping to go home today tolerating diet Vital Signs Vital Signs Date Time Temp Pulse Resp B/P (MAP) Pulse Ox O2 Delivery O2 Flow Rate FiO2 02/11/19 09:22 91 140/82 02/11/19 08:00 Room Air 02/11/19 07:00 97.7 16 95 97.7 I&O Intake and Output 02/11/19 07:00 Intake Total 3180 ml Output Total 2920 ml Balance 260 ml Intake Oral 3180 ml Output Urine Total 2900 ml Drainage Total 20 ml General: Alert, Oriented X3, Cooperative, No acute distress Abdomen: Soft, Other (drain sang/purulent) Labs Laboratory Tests Test 02/09/19 12:15 02/10/19 10:25 White Blood Count 11.7 x10^3/uL (4.0-11.0) 13.6 x10^3/uL (4.0-11.0) Red Blood Count 4.72 x10^6/uL (4.30-5.70) 4.66 x10^6/uL (4.30-5.70) Hemoglobin 13.1 g/dL (13.0-17.5) 12.9 g/dL (13.0-17.5) Hematocrit 40.1 % (39.0-53.0) 39.2 % (39.0-53.0) Mean Corpuscular Volume 85 fL (79-100) 84 fL (79-100) Mean Corpuscular Hemoglobin 28 pg (25-35) 28 pg (25-35) Mean Corpuscular Hemoglobin Concent 33 g/dL (31-37) 33 g/dL (31-37) Red Cell Distribution Width 14.9 % (11.5-14.5) 15.1 % (11.5-14.5) Platelet Count 510 x10^3/uL (140-400) 530 x10^3/uL (140-400) Neutrophils (%) (Auto) 79 % (31-73) 82 % (31-73) Lymphocytes (%) (Auto) 12 % (24-48) 9 % (24-48) Monocytes (%) (Auto) 7 % (0-9) 6 % (0-9) Eosinophils (%) (Auto) 2 % (0-3) 2 % (0-3) Basophils (%) (Auto) 0 % (0-3) 0 % (0-3) Neutrophils # (Auto) 9.2 x10^3uL (1.8-7.7) 11.3 x10^3uL (1.8-7.7) Lymphocytes # (Auto) 1.4 x10^3/uL (1.0-4.8) 1.2 x10^3/uL (1.0-4.8) Monocytes # (Auto) 0.8 x10^3/uL (0.0-1.1) 0.9 x10^3/uL (0.0-1.1) Eosinophils # (Auto) 0.3 x10^3/uL (0.0-0.7) 0.2 x10^3/uL (0.0-0.7) Basophils # (Auto) 0.1 x10^3/uL (0.0-0.2) 0.0 x10^3/uL (0.0-0.2) Segmented Neutrophils % 71 % (35-66) Band Neutrophils % 8 % (0-9) Lymphocytes % 11 % (24-48) Monocytes % 6 % (0-10) Eosinophils % 2 % (0-5) Metamyelocytes % 1 % (0-0) Myelocytes % 1 % (0-0) Platelet Estimate Increased (ADEQUATE) Polychromasia Slight Sodium Level 135 mmol/L (136-145) 134 mmol/L (136-145) Potassium Level 4.3 mmol/L (3.5-5.1) 4.2 mmol/L (3.5-5.1) Chloride Level 100 mmol/L (98-107) 98 mmol/L (98-107) Carbon Dioxide Level 27 mmol/L (21-32) 26 mmol/L (21-32) Anion Gap 8 (6-14) 10 (6-14) Blood Urea Nitrogen 19 mg/dL (8-26) 19 mg/dL (8-26) Creatinine 1.4 mg/dL (0.7-1.3) 1.3 mg/dL (0.7-1.3) Estimated GFR (Cockcroft-Gault) 52.4 57.1 Glucose Level 100 mg/dL (70-99) 137 mg/dL (70-99) Calcium Level 9.0 mg/dL (8.5-10.1) 9.0 mg/dL (8.5-10.1) Laboratory Tests Test 02/10/19 10:25 White Blood Count 13.6 x10^3/uL (4.0-11.0) Red Blood Count 4.66 x10^6/uL (4.30-5.70) Hemoglobin 12.9 g/dL (13.0-17.5) Hematocrit 39.2 % (39.0-53.0) Mean Corpuscular Volume 84 fL (79-100) Mean Corpuscular Hemoglobin 28 pg (25-35) Mean Corpuscular Hemoglobin Concent 33 g/dL (31-37) Red Cell Distribution Width 15.1 % (11.5-14.5) Platelet Count 530 x10^3/uL (140-400) Neutrophils (%) (Auto) 82 % (31-73) Lymphocytes (%) (Auto) 9 % (24-48) Monocytes (%) (Auto) 6 % (0-9) Eosinophils (%) (Auto) 2 % (0-3) Basophils (%) (Auto) 0 % (0-3) Neutrophils # (Auto) 11.3 x10^3uL (1.8-7.7) Lymphocytes # (Auto) 1.2 x10^3/uL (1.0-4.8) Monocytes # (Auto) 0.9 x10^3/uL (0.0-1.1) Eosinophils # (Auto) 0.2 x10^3/uL (0.0-0.7) Basophils # (Auto) 0.0 x10^3/uL (0.0-0.2) Sodium Level 134 mmol/L (136-145) Potassium Level 4.2 mmol/L (3.5-5.1) Chloride Level 98 mmol/L (98-107) Carbon Dioxide Level 26 mmol/L (21-32) Anion Gap 10 (6-14) Blood Urea Nitrogen 19 mg/dL (8-26) Creatinine 1.3 mg/dL (0.7-1.3) Estimated GFR (Cockcroft-Gault) 57.1 Glucose Level 137 mg/dL (70-99) Calcium Level 9.0 mg/dL (8.5-10.1) Problem List Problems Medical Problems: (1) Abscess of pelvis Status: Acute (2) Elevated blood pressure reading without diagnosis of hypertension Status: Acute (3) Methamphetamine abuse Status: Acute (4) SIRS (systemic inflammatory response syndrome) Status: Acute Assessment/Plan continue drain care, FU in clinic next week with Dr Giacomo kilpatrick per ID AMELIA YAN MD 02/11/19 5887: SURGICAL PROGRESS NOTE Assessment/Plan Pt seen and examined. Agree with Ms. Keyes's note Pt feels well, vicky diet, denies pain having stools abd soft, NTTP OK to d/c home with drain will f/u in one week. ROCIO KEYES APRN February 11, 2019 09:39 AMELIA YAN MD February 11, 2019 14:57
[2019-02-11 09:54] LABS: BASO % 0 % (0-3); EOS # 0.3 x10^3/uL (0.0-0.7); EOS % 3 % (0-3); HEMATOCRIT 38.2 % (39.0-53.0); HEMOGLOBIN 12.8 g/dL (13.0-17.5); LYMPH # 1.4 x10^3/uL (1.0-4.8); LYMPH % 13 % (24-48); MEAN CORPUSCULAR HEMOGLOBIN 28 pg (25-35); MEAN CORPUSCULAR HGB CONC 33 g/dL (31-37); MEAN CORPUSCULAR VOLUME 84 fL (79-100); MONO % 9 % (0-9); NEUT # 8.5 x10^3uL (1.8-7.7); NEUT % 75 % (31-73); PLATELET COUNT 501 x10^3/uL (140-400); RED BLOOD COUNT 4.54 x10^6/uL (4.30-5.70); RED CELL DISTRIBUTION WIDTH 14.8 % (11.5-14.5); WHITE BLOOD COUNT 11.3 x10^3/uL (4.0-11.0)
--- NOTE | 2019-02-11 09:59 | PDOC ---
Infectious Disease Note Subjective: Subjective Feeling fine, wants to go home ROS: ROS Negative except for above. Vital Signs: Vital Signs Vital Signs Date Time Temp Pulse Resp B/P (MAP) Pulse Ox O2 Delivery O2 Flow Rate FiO2 02/11/19 09:22 91 140/82 02/11/19 08:00 Room Air 02/11/19 07:00 97.7 16 95 97.7 Physical Exam: PHYSICAL EXAM GENERAL: Resting quietly HEENT: Oral cavity clear LUNGS: Clear to auscultation. HEART: S1 and S2. ABDOMEN: soft, NT, HUMA intact EXT: No gross edema or cyanosis SKIN: Warm without rash. NEUROLOGIC: Responds appropriately Medications: Inpatient Meds: Current Medications Medications (Trade) Dose Ordered Sig/Juwan Start Time Stop Time Status Last Admin Dose Admin Acetaminophen (Tylenol) 650 mg PRN Q6HRS PRN 02/02/19 19:45 02/03/19 19:56 650 MG Carvedilol (Coreg) 6.25 mg BIDWMEALS 02/05/19 08:30 02/11/19 09:21 6.25 MG Enoxaparin Sodium (Lovenox 40mg Syringe) 40 mg Q24H 02/01/19 16:00 02/10/19 16:27 40 MG Fentanyl Citrate (Fentanyl 2ml Vial) 100 mcg 1X ONCE 02/03/19 12:30 02/03/19 12:31 DC 02/03/19 12:30 100 MCG Gelatin (Gelfoam Size 12-7mm) 1 each STK-MED ONCE 02/10/19 14:34 02/10/19 14:35 DC Hydralazine HCl (Apresoline Inj) 10 mg PRN Q4HRS PRN 02/03/19 01:30 02/06/19 17:35 10 MG Info (CONTRAST GIVEN -- Rx MONITORING) 1 each PRN DAILY PRN 02/09/19 13:15 02/11/19 13:14 Iohexol (Omnipaque 240 Mg/ml) 50 ml STK-MED ONCE 02/10/19 14:44 02/10/19 14:45 DC Iohexol (Omnipaque 300 Mg/ml) 75 ml 1X ONCE 02/09/19 13:00 02/09/19 13:01 DC Labetalol HCl (Normodyne Iv Push) 20 mg PRN Q2HR PRN 02/03/19 01:30 02/10/19 15:17 DC 02/03/19 17:33 20 MG Lactobacillus Rhamnosus (Culturelle) 1 cap BID 02/03/19 21:00 02/11/19 09:20 1 CAP Lidocaine/Sodium Bicarbonate (Buffered Lidocaine 1%) 3 ml 1X ONCE 02/03/19 12:30 02/03/19 12:31 DC 02/03/19 12:30 6 ML Linezolid/Dextrose 300 ml @ 300 mls/hr Q12HR 02/03/19 21:00 02/07/19 10:33 DC 02/07/19 10:12 300 MLS/HR Lisinopril (Prinivil) 5 mg 1X ONCE 02/08/19 19:45 02/08/19 19:46 DC 02/08/19 20:23 5 MG Metoprolol Tartrate (Lopressor Vial) 5 mg PRN Q4HRS PRN 02/07/19 08:30 02/07/19 10:18 5 MG Metronidazole 100 ml @ 100 mls/hr 1X ONCE 01/31/19 23:00 01/31/19 23:59 DC 01/31/19 23:03 100 MLS/HR Midazolam HCl (Versed) 2 mg 1X ONCE 02/03/19 12:30 02/03/19 12:31 DC 02/03/19 12:30 2 MG Morphine Sulfate (Morphine Sulfate) 4 mg PRN Q4HRS PRN 02/02/19 00:30 02/08/19 10:59 4 MG Nicotine (Nicoderm Cq 21mg) 1 patch PRN DAILY PRN 02/03/19 21:45 02/07/19 20:28 1 PATCH Ondansetron HCl (Zofran) 4 mg PRN Q8HRS PRN 01/31/19 22:45 02/01/19 22:44 DC 01/31/19 23:01 4 MG Oxycodone/ Acetaminophen (Percocet 7.5/ 325) 1 tab PRN Q4HRS PRN 02/03/19 13:45 02/11/19 00:57 1 TAB Pantoprazole Sodium (PROTONIX VIAL for IV PUSH) 40 mg DAILYAC 02/01/19 15:00 02/04/19 20:25 DC 02/04/19 08:25 40 MG Pantoprazole Sodium (Protonix) 40 mg DAILYAC 02/05/19 07:30 02/11/19 09:22 40 MG Piperacillin Sod/ Tazobactam Sod 3.375 gm/Sodium Chloride 50 ml @ 100 mls/hr Q6HRS 02/02/19 12:00 02/11/19 05:54 100 MLS/HR Sodium Chloride 1,000 ml @ 1,000 mls/hr 1X ONCE 01/31/19 23:00 01/31/19 23:59 DC 01/31/19 23:02 1,000 MLS/HR Vancomycin HCl (Vanco Per Pharmacy) 1 each PRN DAILY PRN 01/31/19 22:45 02/01/19 14:31 DC 02/01/19 13:44 1 EACH Vancomycin HCl (Vancomycin Trough Level) 1 each 1X ONCE 02/02/19 00:30 02/02/19 00:30 DC Vancomycin HCl 1.5 gm/Sodium Chloride 500 ml @ 250 mls/hr Q8H 02/01/19 09:00 02/01/19 14:31 DC 02/01/19 08:31 250 MLS/HR Vancomycin HCl 2 gm/Sodium Chloride 500 ml @ 250 mls/hr 1X ONCE 01/31/19 23:00 02/01/19 00:59 DC 02/01/19 00:23 250 MLS/HR Labs: Lab Laboratory Tests Test 02/10/19 10:25 White Blood Count 13.6 x10^3/uL (4.0-11.0) Red Blood Count 4.66 x10^6/uL (4.30-5.70) Hemoglobin 12.9 g/dL (13.0-17.5) Hematocrit 39.2 % (39.0-53.0) Mean Corpuscular Volume 84 fL (79-100) Mean Corpuscular Hemoglobin 28 pg (25-35) Mean Corpuscular Hemoglobin Concent 33 g/dL (31-37) Red Cell Distribution Width 15.1 % (11.5-14.5) Platelet Count 530 x10^3/uL (140-400) Neutrophils (%) (Auto) 82 % (31-73) Lymphocytes (%) (Auto) 9 % (24-48) Monocytes (%) (Auto) 6 % (0-9) Eosinophils (%) (Auto) 2 % (0-3) Basophils (%) (Auto) 0 % (0-3) Neutrophils # (Auto) 11.3 x10^3uL (1.8-7.7) Lymphocytes # (Auto) 1.2 x10^3/uL (1.0-4.8) Monocytes # (Auto) 0.9 x10^3/uL (0.0-1.1) Eosinophils # (Auto) 0.2 x10^3/uL (0.0-0.7) Basophils # (Auto) 0.0 x10^3/uL (0.0-0.2) Sodium Level 134 mmol/L (136-145) Potassium Level 4.2 mmol/L (3.5-5.1) Chloride Level 98 mmol/L (98-107) Carbon Dioxide Level 26 mmol/L (21-32) Anion Gap 10 (6-14) Blood Urea Nitrogen 19 mg/dL (8-26) Creatinine 1.3 mg/dL (0.7-1.3) Estimated GFR (Cockcroft-Gault) 57.1 Glucose Level 137 mg/dL (70-99) Calcium Level 9.0 mg/dL (8.5-10.1) Micro 1. Decreased size of the complex gas and fluid collection within the left retroperitoneum status post percutaneous pigtail catheter placement. There is fatty stranding trace fluid along the course of the catheter and surrounding the aforementioned complex collection. No new drainable fluid collection is seen. 2. Slightly prominent left renal collecting system due to mass effect from the aforementioned retroperitoneal fluid collection. This has slightly decreased compared to the prior study. 3. Colonic diverticulosis. 4. Small fat-containing umbilical and supraumbilical hernias. 5. Slight increased bilateral lower lobe atelectasis. Micro Microbiology 01/31/19 Blood Culture - Preliminary, Resulted NO GROWTH AFTER 1 DAY RUN DATE: 02/07/19 PAGE 1 RUN TIME: 8678 [facility] [address] [place] [address] Jarred Boateng M.D., Front Worker PATIENT: ALECIA HOFFMAN ACCT: [id number] LOC: [address] [place] [address] U: [id number] AGE/SX: 58/M ROOM: [facility] RE01/31/[address]: ELOY SKINNER MD : 1960 BED: 1 DIS: STATUS: ADM IN TLOC: SPEC #: [id number] WILLIAM: 02/03/19 STATUS: COMP REQ #: [id number] RECD: 02/03/[address]: TOMMY ESTRADA MD SOURCE: PELVIS ENTR: 02/03/[address]: AMELIA YAN [facility]: BRI GREGG MD, IRA W MD NO PCP PASNOORI, VENKAT R MD ORDERED: SAMUEL/LESLIE/GHULAM Procedure Result ANAEROBIC-AEROBIC CULTURE Final Final report ANAEROBIC RES 1 Final Comment Bacteroides thetaiotaomicron 3+ AEROBIC CULT Final Final report AEROBIC RES 1 Final Escherichia coli Scant growth ANTIMICROBIAL SUSCEPTIBILITY Final Comment S = Susceptible; I = Intermediate; R = Resistant P = Positive; N = Negative MICS are expressed in micrograms per mL Antibiotic RSLT#1 RSLT#2 RSLT#3 RSLT#4 Amoxicillin/Clavulanic Acid S =8 Ampicillin R>=32 Cefepime S<=0.12 Ceftriaxone S<=0.25 Cefuroxime S =4 Ciprofloxacin R>=4 Ertapenem S<=0.12 Gentamicin S<=1 Imipenem S<=0.25 Levofloxacin R>=8 Meropenem S<=0.25 Piperacillin/Tazobactam S<=4 CONTINUED ON NEXT PAGE RUN DATE: 02/07/19 PAGE 2 RUN TIME: 1709 [facility] [address] [place] [address] Jarred Boateng M.D., Front Worker SPEC: [id number] PATIENT: ALECIA HOFFMAN [id number] (Continued) Procedure Result ANTIMICROBIAL SUSCEPTIBILITY Final (continued) Tetracycline S<=1 Tobramycin S<=1 Trimethoprim/Sulfa S<=20 GRAM STAIN Final Final report GRAM STAIN RES 1 Final Comment No white blood cells seen. GRAM STAIN RES 2 Final Gram positive cocci Rare seen GRAM STAIN RES 3 Final Comment Rare gram negative rods. Performed at: - [facility] [address], [place], [place] [id number] Program Development Specialist: AFTAB Moralez MD, Phone: [phone] Objective: Assessment: Sepsis, improved Pelvic abscess measuring 5.1 x 3.4 cm and contains considerable surrounding inflammation. s/p drainage, 02/01. E. coli (R amp, quinolones) and bacteroides. No growth of GPC on gram stain. Repeat imaging on 02/10 shows Improvement but persistent residual pelvic abscess cavity,Continued percutaneous drainage recommended. ? perforated diverticulitis Urine tox positive for meth. Patient denies drug use. MERI Plan: Plan of Care Pt is ready for dc home today per team IV ertapenem, pt is refusing pros and cons discussed augmentin for 2 weeks drain management per IR will need repeat imaging per IR s/e of abx discussed f/u with ID clinic in 2 weeks [phone] D/W DILLON AVILA MD February 11, 2019 09:59
[2019-02-11 10:09] LABS: CALCIUM 8.7 mg/dL (8.5-10.1); CREATININE 1.3 mg/dL (0.7-1.3); GFR 57.1
--- NOTE | 2019-02-11 10:34 | PDOC ---
PROGRESS NOTES Chief Complaint Chief Complaint acute abdomen pain perforated diverticulum sepsis substance abuse History of Present Illness History of Present Illness broad iv abx advance diet drain exudate looks more clear today is translucent pain better repeat CT if drainage output stays low, MINIMAL DRAINAGE NOTED TODAY Decreased size of the complex gas and fluid collection within the left retroperitoneum status post percutaneous pigtail catheter placement. There is fatty stranding trace fluid along the course of the catheter and surrounding the aforementioned complex collection. No new drainable fluid collection is seen. METH POS IN UA DS ID and gen surg following, IV abd PO pain meds cbc, bmp today guarded prognosis due to substance abuse, compliance REFUSES OUT PT IV ANTIBIOTICS PO AUGMENTIN X 10 DAYS 37 MIN PT EXAM D/C PLANNING , CHART REVIEW, > 50% OF TIME SPENT WITH EXAM, CHART REVIEW, PT CARE COORDINATION Vitals Vitals Vital Signs Date Time Temp Pulse Resp B/P (MAP) Pulse Ox O2 Delivery O2 Flow Rate FiO2 02/11/19 09:22 91 140/82 02/11/19 08:00 Room Air 02/11/19 07:00 97.7 16 95 97.7 Physical Exam Physical Exam GENERAL: Resting quietly HEENT: Oral cavity clear LUNGS: Clear to auscultation. HEART: S1 and S2. ABDOMEN: soft, NT, HUMA intact EXT: No gross edema or cyanosis SKIN: Warm without rash. NEUROLOGIC: Responds appropriately General: Alert, Oriented X3, Cooperative, No acute distress Heart: Regular rate, Normal S1, Normal S2, No murmurs Lungs: Clear Abdomen: Normal bowel sounds, Soft, Other (drain sang/purulent) Extremities: No clubbing, No cyanosis, No edema Skin: No rashes, No breakdown Labs LABS Laboratory Tests Test 02/11/19 09:37 White Blood Count 11.3 x10^3/uL (4.0-11.0) Red Blood Count 4.54 x10^6/uL (4.30-5.70) Hemoglobin 12.8 g/dL (13.0-17.5) Hematocrit 38.2 % (39.0-53.0) Mean Corpuscular Volume 84 fL (79-100) Mean Corpuscular Hemoglobin 28 pg (25-35) Mean Corpuscular Hemoglobin Concent 33 g/dL (31-37) Red Cell Distribution Width 14.8 % (11.5-14.5) Platelet Count 501 x10^3/uL (140-400) Neutrophils (%) (Auto) 75 % (31-73) Lymphocytes (%) (Auto) 13 % (24-48) Monocytes (%) (Auto) 9 % (0-9) Eosinophils (%) (Auto) 3 % (0-3) Basophils (%) (Auto) 0 % (0-3) Neutrophils # (Auto) 8.5 x10^3uL (1.8-7.7) Lymphocytes # (Auto) 1.4 x10^3/uL (1.0-4.8) Monocytes # (Auto) 1.0 x10^3/uL (0.0-1.1) Eosinophils # (Auto) 0.3 x10^3/uL (0.0-0.7) Basophils # (Auto) 0.0 x10^3/uL (0.0-0.2) Sodium Level 134 mmol/L (136-145) Potassium Level 4.0 mmol/L (3.5-5.1) Chloride Level 98 mmol/L (98-107) Carbon Dioxide Level 25 mmol/L (21-32) Anion Gap 11 (6-14) Blood Urea Nitrogen 20 mg/dL (8-26) Creatinine 1.3 mg/dL (0.7-1.3) Estimated GFR (Cockcroft-Gault) 57.1 Glucose Level 133 mg/dL (70-99) Calcium Level 8.7 mg/dL (8.5-10.1) Assessment and Plan Assessmemt and Plan Problems Medical Problems: (1) Abscess of pelvis Status: Acute (2) Elevated blood pressure reading without diagnosis of hypertension Status: Acute (3) Methamphetamine abuse Status: Acute (4) SIRS (systemic inflammatory response syndrome) Status: Acute Comment Review of Relevant I have reviewed the following items ted (where applicable) has been applied. Labs Laboratory Tests Test 02/09/19 12:15 02/10/19 10:25 02/11/19 09:37 White Blood Count 11.7 x10^3/uL (4.0-11.0) 13.6 x10^3/uL (4.0-11.0) 11.3 x10^3/uL (4.0-11.0) Red Blood Count 4.72 x10^6/uL (4.30-5.70) 4.66 x10^6/uL (4.30-5.70) 4.54 x10^6/uL (4.30-5.70) Hemoglobin 13.1 g/dL (13.0-17.5) 12.9 g/dL (13.0-17.5) 12.8 g/dL (13.0-17.5) Hematocrit 40.1 % (39.0-53.0) 39.2 % (39.0-53.0) 38.2 % (39.0-53.0) Mean Corpuscular Volume 85 fL (79-100) 84 fL (79-100) 84 fL (79-100) Mean Corpuscular Hemoglobin 28 pg (25-35) 28 pg (25-35) 28 pg (25-35) Mean Corpuscular Hemoglobin Concent 33 g/dL (31-37) 33 g/dL (31-37) 33 g/dL (31-37) Red Cell Distribution Width 14.9 % (11.5-14.5) 15.1 % (11.5-14.5) 14.8 % (11.5-14.5) Platelet Count 510 x10^3/uL (140-400) 530 x10^3/uL (140-400) 501 x10^3/uL (140-400) Neutrophils (%) (Auto) 79 % (31-73) 82 % (31-73) 75 % (31-73) Lymphocytes (%) (Auto) 12 % (24-48) 9 % (24-48) 13 % (24-48) Monocytes (%) (Auto) 7 % (0-9) 6 % (0-9) 9 % (0-9) Eosinophils (%) (Auto) 2 % (0-3) 2 % (0-3) 3 % (0-3) Basophils (%) (Auto) 0 % (0-3) 0 % (0-3) 0 % (0-3) Neutrophils # (Auto) 9.2 x10^3uL (1.8-7.7) 11.3 x10^3uL (1.8-7.7) 8.5 x10^3uL (1.8-7.7) Lymphocytes # (Auto) 1.4 x10^3/uL (1.0-4.8) 1.2 x10^3/uL (1.0-4.8) 1.4 x10^3/uL (1.0-4.8) Monocytes # (Auto) 0.8 x10^3/uL (0.0-1.1) 0.9 x10^3/uL (0.0-1.1) 1.0 x10^3/uL (0.0-1.1) Eosinophils # (Auto) 0.3 x10^3/uL (0.0-0.7) 0.2 x10^3/uL (0.0-0.7) 0.3 x10^3/uL (0.0-0.7) Basophils # (Auto) 0.1 x10^3/uL (0.0-0.2) 0.0 x10^3/uL (0.0-0.2) 0.0 x10^3/uL (0.0-0.2) Segmented Neutrophils % 71 % (35-66) Band Neutrophils % 8 % (0-9) Lymphocytes % 11 % (24-48) Monocytes % 6 % (0-10) Eosinophils % 2 % (0-5) Metamyelocytes % 1 % (0-0) Myelocytes % 1 % (0-0) Platelet Estimate Increased (ADEQUATE) Polychromasia Slight Sodium Level 135 mmol/L (136-145) 134 mmol/L (136-145) 134 mmol/L (136-145) Potassium Level 4.3 mmol/L (3.5-5.1) 4.2 mmol/L (3.5-5.1) 4.0 mmol/L (3.5-5.1) Chloride Level 100 mmol/L (98-107) 98 mmol/L (98-107) 98 mmol/L (98-107) Carbon Dioxide Level 27 mmol/L (21-32) 26 mmol/L (21-32) 25 mmol/L (21-32) Anion Gap 8 (6-14) 10 (6-14) 11 (6-14) Blood Urea Nitrogen 19 mg/dL (8-26) 19 mg/dL (8-26) 20 mg/dL (8-26) Creatinine 1.4 mg/dL (0.7-1.3) 1.3 mg/dL (0.7-1.3) 1.3 mg/dL (0.7-1.3) Estimated GFR (Cockcroft-Gault) 52.4 57.1 57.1 Glucose Level 100 mg/dL (70-99) 137 mg/dL (70-99) 133 mg/dL (70-99) Calcium Level 9.0 mg/dL (8.5-10.1) 9.0 mg/dL (8.5-10.1) 8.7 mg/dL (8.5-10.1) Laboratory Tests Test 02/11/19 09:37 White Blood Count 11.3 x10^3/uL (4.0-11.0) Red Blood Count 4.54 x10^6/uL (4.30-5.70) Hemoglobin 12.8 g/dL (13.0-17.5) Hematocrit 38.2 % (39.0-53.0) Mean Corpuscular Volume 84 fL (79-100) Mean Corpuscular Hemoglobin 28 pg (25-35) Mean Corpuscular Hemoglobin Concent 33 g/dL (31-37) Red Cell Distribution Width 14.8 % (11.5-14.5) Platelet Count 501 x10^3/uL (140-400) Neutrophils (%) (Auto) 75 % (31-73) Lymphocytes (%) (Auto) 13 % (24-48) Monocytes (%) (Auto) 9 % (0-9) Eosinophils (%) (Auto) 3 % (0-3) Basophils (%) (Auto) 0 % (0-3) Neutrophils # (Auto) 8.5 x10^3uL (1.8-7.7) Lymphocytes # (Auto) 1.4 x10^3/uL (1.0-4.8) Monocytes # (Auto) 1.0 x10^3/uL (0.0-1.1) Eosinophils # (Auto) 0.3 x10^3/uL (0.0-0.7) Basophils # (Auto) 0.0 x10^3/uL (0.0-0.2) Sodium Level 134 mmol/L (136-145) Potassium Level 4.0 mmol/L (3.5-5.1) Chloride Level 98 mmol/L (98-107) Carbon Dioxide Level 25 mmol/L (21-32) Anion Gap 11 (6-14) Blood Urea Nitrogen 20 mg/dL (8-26) Creatinine 1.3 mg/dL (0.7-1.3) Estimated GFR (Cockcroft-Gault) 57.1 Glucose Level 133 mg/dL (70-99) Calcium Level 8.7 mg/dL (8.5-10.1) Microbiology 02/03/19 Blood Culture - Final, Complete NO GROWTH AFTER 5 DAYS 01/31/19 Urine Culture - Final, Complete 01/31/19 Urine Culture Result 1 (LILY) - Final, Complete 02/03/19 Anaerobic/Aerobic Culture - Final, Complete 02/03/19 Anaerobic Culture Result 1 (LILY) - Final, Complete 02/03/19 Aerobic Culture - Final, Complete 02/03/19 Aerobic Culture Result 1 (LILY) - Final, Complete 02/03/19 Antimicrobic Susceptibility - Final, Complete 02/03/19 Gram Stain - Final, Complete 02/03/19 Gram Stain Result 1 (LILY) - Final, Complete 02/03/19 Gram Stain Result 2 (LILY) - Final, Complete 02/03/19 Gram Stain Result 3 (LILY) - Final, Complete Medications Current Medications Sodium Chloride 1,000 ml @ 1,000 mls/hr Q1H IV Last administered on 01/31/19at 20:42; Start 01/31/19 at 20:12; Stop 01/31/19 at 21:11; Status DC Fentanyl Citrate (Fentanyl 2ml Vial) 50 mcg 1X ONCE IV Last administered on 01/31/19at 20:49; Start 01/31/19 at 20:45; Stop 01/31/19 at 20:46; Status DC Ondansetron HCl (Zofran) 4 mg 1X ONCE IV Last administered on 01/31/19at 20:49; Start 01/31/19 at 20:45; Stop 01/31/19 at 20:46; Status DC Morphine Sulfate (Morphine Sulfate) 4 mg 1X ONCE IV Last administered on at 23:01; Start 01/31/19 at 23:00; Stop 01/31/19 at 23:01; Status DC Piperacillin Sod/ Tazobactam Sod 3.375 gm/Sodium Chloride 50 ml @ 100 mls/hr 1X ONCE IV Last administered on 01/31/19at 23:52; Start 01/31/19 at 23:00; Stop 01/31/19 at 23:29; Status DC Metronidazole 100 ml @ 100 mls/hr Q8HRS IV Last administered on 02/01/19at 14:17; Start 02/01/19 at 06:00; Stop 02/01/19 at 14:27; Status DC Metronidazole 100 ml @ 100 mls/hr 1X ONCE IV Last administered on 01/31/19at 23:03; Start 01/31/19 at 23:00; Stop 01/31/19 at 23:59; Status DC Vancomycin HCl 250 ml @ 250 mls/hr 1X ONCE IV ; Start 01/31/19 at 22:45; Stop 01/31/19 at 23:44; Status UNV Sodium Chloride 1,000 ml @ 1,000 mls/hr 1X ONCE IV Last administered on 01/31/19at 23:02; Start 01/31/19 at 23:00; Stop 01/31/19 at 23:59; Status DC Vancomycin HCl (Vanco Per Pharmacy) 1 each PRN DAILY PRN MC SEE COMMENTS Last administered on 02/01/19at 13:44; Start 01/31/19 at 22:45; Stop 02/01/19 at 14:31; Status DC Vancomycin HCl 2 gm/Sodium Chloride 500 ml @ 250 mls/hr 1X ONCE IV Last administered on 02/01/19at 00:23; Start 01/31/19 at 23:00; Stop 02/01/19 at 00:59; Status DC Ondansetron HCl (Zofran) 4 mg PRN Q8HRS PRN IV NAUSEA/VOMITING 1ST CHOICE Last administered on 01/31/19at 23:01; Start 01/31/19 at 22:45; Stop 02/01/19 at 22:44; Status DC Morphine Sulfate (Morphine Sulfate) 4 mg PRN Q4HRS PRN IV SEVERE PAIN Last administered on 02/01/19at 19:50; Start 01/31/19 at 22:45; Stop 02/01/19 at 22:44; Status DC Piperacillin Sod/ Tazobactam Sod 3.375 gm/Sodium Chloride 50 ml @ 100 mls/hr Q6HRS IV Last administered on 02/01/19 05:55; Start 02/01/19 at 06:00; Stop 02/01/19 at 06:02; Status DC Vancomycin HCl 1.5 gm/Sodium Chloride 500 ml @ 250 mls/hr Q8H IV Last administered on 02/01/19 08:31; Start 02/01/19 at 09:00; Stop 02/01/19 at 14:31; Status DC Vancomycin HCl (Vancomycin Trough Level) 1 each 1X ONCE MC ; Start 02/02/19 at 00:30; Stop 02/02/19 at 00:30; Status DC Enoxaparin Sodium (Lovenox 40mg Syringe) 40 mg Q24H SQ Last administered on 02/10 16:27; Start 02/01/19 at 16:00 Pantoprazole Sodium (PROTONIX VIAL for IV PUSH) 40 mg DAILYAC IVP Last administered on 02/04/19 08:25; Start 02/01/19 at 15:00; Stop 02/04/19 at 20:25; Status DC Morphine Sulfate (Morphine Sulfate) 4 mg PRN Q4HRS PRN IV SEVERE PAIN Last administered on 02/08/19 10:59; Start 02/02/19 at 00:30 Piperacillin Sod/ Tazobactam Sod 3.375 gm/Sodium Chloride 50 ml @ 100 mls/hr Q6HRS IV Last administered on 02/11/19 05:54; Start 02/02/19 at 12:00 Acetaminophen (Tylenol) 650 mg PRN Q6HRS PRN PO FEVER Last administered on 02/03/19at 19:56; Start 02/02/19 at 19:45 Labetalol HCl (Normodyne Iv Push) 10 mg PRN Q2HR PRN IVP HYPERTENSION, SEE COMMENTS Last administered on 02/02/19at 23:53; Start 02/02/19 at 23:30; Stop 02/03/19 at 13:48; Status DC Labetalol HCl (Normodyne Iv Push) 20 mg PRN Q2HR PRN IVP HYPERTENSION, 2ND CHOICE Last administered on 02/03/19at 17:33; Start 02/03/19 at 01:30; Stop 02/10/19 at 15:17; Status DC Hydralazine HCl (Apresoline Inj) 10 mg PRN Q4HRS PRN IVP ELEVATED BP, 1ST CHOICE Last administered on 02/06/19 17:35; Start 02/03/19 at 01:30 Lisinopril (Prinivil) 10 mg DAILY PO Last administered on 02/04/19at 08:26; Start 02/03/19 at 12:00; Stop 02/04/19 at 10:43; Status DC Lidocaine/Sodium Bicarbonate (Buffered Lidocaine 1%) 3 ml STK-MED ONCE .ROUTE ; Start 02/03/19 at 12:08; Stop 02/03/19 at 12:09; Status DC Midazolam HCl (Versed) 2 mg STK-MED ONCE .ROUTE ; Start 02/03/19 at 12:09; Stop 02/03/19 at 12:10; Status DC Fentanyl Citrate (Fentanyl 2ml Vial) 100 mcg STK-MED ONCE .ROUTE ; Start 02/03/19 at 12:10; Stop 02/03/19 at 12:11; Status DC Lidocaine/Sodium Bicarbonate (Buffered Lidocaine 1%) 3 ml 1X ONCE IJ Last administered on 02/03/19at 12:30; Start 02/03/19 at 12:30; Stop 02/03/19 at 12:31; Status DC Midazolam HCl (Versed) 2 mg 1X ONCE IV Last administered on 02/03/19at 12:30; Start 02/03/19 at 12:30; Stop 02/03/19 at 12:31; Status DC Fentanyl Citrate (Fentanyl 2ml Vial) 100 mcg 1X ONCE IV Last administered on 02/03/19at 12:30; Start 02/03/19 at 12:30; Stop 02/03/19 at 12:31; Status DC Oxycodone/ Acetaminophen (Percocet 7.5/ 325) 1 tab PRN Q4HRS PRN PO SEVERE PAIN Last administered on 02/11/19 00:57; Start 02/03/19 at 13:45 Lactobacillus Rhamnosus (Culturelle) 1 cap BID PO Last administered on 02/11/19at 09:20; Start 02/03/19 at 21:00 Linezolid/Dextrose 300 ml @ 300 mls/hr Q12HR IV Last administered on 02/07/19at 10:12; Start 02/03/19 at 21:00; Stop 02/07/19 at 10:33; Status DC Nicotine (Nicoderm Cq 21mg) 1 patch PRN DAILY PRN TD SMOKING CESSATION Last administered on 02/07/19 20:28; Start 02/03/19 at 21:45 Pantoprazole Sodium (Protonix) 40 mg DAILYAC PO Last administered on 02/11/19 09:22; Start 02/05/19 at 07:30 Carvedilol (Coreg) 6.25 mg BIDWMEALS PO Last administered on 02/11/19 09:21; Start 02/05/19 at 08:30 Metoprolol Tartrate (Lopressor Vial) 5 mg PRN Q4HRS PRN IVP HYPERTENSION, SEE COMMENTS Last administered on 02/07/19 10:18; Start 02/07/19 at 08:30 Lisinopril (Prinivil) 5 mg DAILY PO Last administered on 02/11/19 09:22; Start 02/09/19 at 09:00 Lisinopril (Prinivil) 5 mg 1X ONCE PO Last administered on 02/08/19at 20:23; Start 02/08/19 at 19:45; Stop 02/08/19 at 19:46; Status DC Iohexol (Omnipaque 300 Mg/ml) 75 ml 1X ONCE IV ; Start 02/09/19 at 13:00; Stop 02/09/19 at 13:01; Status DC Iohexol (Omnipaque 240 Mg/ml) 50 ml 1X ONCE PO ; Start 02/09/19 at 13:00; Stop 02/09/19 at 13:01; Status DC Info (CONTRAST GIVEN -- Rx MONITORING) 1 each PRN DAILY PRN MC SEE COMMENTS; Start 02/09/19 at 13:15; Stop 02/11/19 at 13:14 Gelatin (Gelfoam Size 12-7mm) 1 each STK-MED ONCE .ROUTE ; Start 02/10/19 at 14:34; Stop 02/10/19 at 14:35; Status DC Iohexol (Omnipaque 240 Mg/ml) 50 ml STK-MED ONCE .ROUTE ; Start 02/10/19 at 14:44; Stop 02/10/19 at 14:45; Status DC Active Scripts Active Ibuprofen 600 Mg Tablet 600 Mg PO PRN Q6HRS PRN Vitals/I & O Vital Sign - Last 24 Hours 02/10/19 02/10/19 02/10/19 02/10/19 11:00 15:00 16:27 19:00 Temp 98.3 98.0 98.9 98.3 98.0 98.9 Pulse 101 89 89 101 Resp 18 18 20 B/P (MAP) 132/82 (99) 145/96 (112) 145/96 150/94 (112) Pulse Ox 95 97 95 O2 Delivery Room Air Room Air Room Air 02/10/19 02/10/19 02/11/19 02/11/19 20:00 23:00 00:57 01:57 Temp 98.4 98.4 Pulse 97 Resp 20 18 18 B/P (MAP) 147/93 (111) Pulse Ox 96 O2 Delivery Room Air Room Air Room Air Room Air 02/11/19 02/11/19 02/11/19 02/11/19 03:00 07:00 08:00 09:21 Temp 98.6 97.7 98.6 97.7 Pulse 94 91 91 Resp 20 16 B/P (MAP) 130/80 (97) 140/82 (101) 140/82 Pulse Ox 94 95 O2 Delivery Room Air Room Air Room Air 02/11/19 09:22 Pulse 91 B/P (MAP) 140/82 Intake and Output 02/10/19 02/10/19 02/11/19 15:00 23:00 07:00 Intake Total 1840 ml 740 ml 600 ml Output Total 1850 ml 370 ml 700 ml Balance -10 ml 370 ml -100 ml SUNDAR COBB MD February 11, 2019 10:34
[2019-02-11 11:00] VITALS: BP 149/49
--- NOTE | 2019-02-11 11:28 | NUR ---
flushed HUMA drain with 10cc sterile saline at this time. pt reports no pain while flushing. dressing also changed at this time. will continue to monitor.
--- NOTE | 2019-02-11 12:39 | NUR ---
SW following for discharge planning. Discussed with RN, pt most likely discharging home today with self care. Pt needing IV abx, however is declining as he does not want to come to [facility] daily to receive the abx. Pt discharging home with PO abx. RN advised no SW needs, pt received the self pay resource packet.
--- NOTE | 2019-02-11 15:10 | PDOC3 ---
Discharge Summary Date of Admission: Feb 01, 2019 Date of Discharge: February 11, 2019 Follow-Up: 3-5 days Admitting Diagnosis comment: DISCHARGE DX perforated diverticulum sepsis substance abuse History of Present Illness History of Present Illness broad iv abx advance diet drain exudate looks more clear today pain better repeat CT if drainage output stays low, MINIMAL DRAINAGE NOTED TODAY Decreased size of the complex gas and fluid collection within the left retroperitoneum status post percutaneous pigtail catheter placement. There is fatty stranding trace fluid along the course of the catheter and surrounding the aforementioned complex collection. No new drainable fluid collection is seen. METH POS IN UA DS ID and gen surg following, IV abd PO pain meds cbc, bmp today guarded prognosis due to substance abuse, compliance REFUSES OUT PT IV ANTIBIOTICS PO AUGMENTIN X 10 DAYS 37 MIN PT EXAM D/C PLANNING , CHART REVIEW, > 50% OF TIME SPENT WITH EXAM, CHART REVIEW, PT CARE COORDINATION Vitals Vitals Vital Signs Date Time Temp Pulse Resp B/P (MAP) Pulse Ox O2 Delivery O2 Flow Rate FiO2 02/11/19 09:22 91 140/82 02/11/19 08:00 Room Air 02/11/19 07:00 97.7 16 95 97.7 Physical Exam Physical Exam GENERAL: Resting quietly HEENT: Oral cavity clear LUNGS: Clear to auscultation. HEART: S1 and S2. ABDOMEN: soft, NT, HUMA intact EXT: No gross edema or cyanosis SKIN: Warm without rash. NEUROLOGIC: Responds appropriately General: Alert, Oriented X3, Cooperative, No acute distress Heart: Regular rate, Normal S1, Normal S2, No murmurs Lungs: Clear Abdomen: Normal bowel sounds, Soft, Other (drain sang/purulent) Extremities: No clubbing, No cyanosis, No edema Skin: No rashes, No breakdown FINAL DIAGNOSIS Problems Medical Problems: (1) Abscess of pelvis Status: Acute (2) Elevated blood pressure reading without diagnosis of hypertension Status: Acute (3) Methamphetamine abuse Status: Acute (4) SIRS (systemic inflammatory response syndrome) Status: Acute Brief Hospital Course Mr. Greenberg is a 58 old [sex] who presented with [ DIVERTICULAR ABSCESS] CONDITION AT DISCHARGE: Improved Discharge Medications Current Medications Sodium Chloride 1,000 ml @ 1,000 mls/hr Q1H IV Last administered on 01/31/19at 20:42; Start 01/31/19 at 20:12; Stop 01/31/19 at 21:11; Status DC Fentanyl Citrate (Fentanyl 2ml Vial) 50 mcg 1X ONCE IV Last administered on 01/31/19 20:49; Start 01/31/19 at 20:45; Stop 01/31/19 at 20:46; Status DC Ondansetron HCl (Zofran) 4 mg 1X ONCE IV Last administered on 01/31/19at 20:49; Start 01/31/19 at 20:45; Stop 01/31/19 at 20:46; Status DC Morphine Sulfate (Morphine Sulfate) 4 mg 1X ONCE IV Last administered on 01/31/19at 23:01; Start 01/31/19 at 23:00; Stop 01/31/19 at 23:01; Status DC Piperacillin Sod/ Tazobactam Sod 3.375 gm/Sodium Chloride 50 ml @ 100 mls/hr 1X ONCE IV Last administered on 01/31/19at 23:52; Start 01/31/19 at 23:00; Stop 01/31/19 at 23:29; Status DC Metronidazole 100 ml @ 100 mls/hr Q8HRS IV Last administered on 02/01/19at 14:17; Start 02/01/19 at 06:00; Stop 02/01/19 at 14:27; Status DC Metronidazole 100 ml @ 100 mls/hr 1X ONCE IV Last administered on 01/31/19 23:03; Start 01/31/19 at 23:00; Stop 01/31/19 at 23:59; Status DC Vancomycin HCl 250 ml @ 250 mls/hr 1X ONCE IV ; Start 01/31/19 at 22:45; Stop 01/31/19 at 23:44; Status UNV Sodium Chloride 1,000 ml @ 1,000 mls/hr 1X ONCE IV Last administered on 01/31/19at 23:02; Start 01/31/19 at 23:00; Stop 01/31/19 at 23:59; Status DC Vancomycin HCl (Vanco Per Pharmacy) 1 each PRN DAILY PRN MC SEE COMMENTS Last administered on 02/01/19at 13:44; Start 01/31/19 at 22:45; Stop 02/01/19 at 14:31; Status DC Vancomycin HCl 2 gm/Sodium Chloride 500 ml @ 250 mls/hr 1X ONCE IV Last administered on 02/01/19at 00:23; Start 01/31/19 at 23:00; Stop 02/01/19 at 00:59; Status DC Ondansetron HCl (Zofran) 4 mg PRN Q8HRS PRN IV NAUSEA/VOMITING 1ST CHOICE Last administered on 01/31/19at 23:01; Start 01/31/19 at 22:45; Stop 02/01/19 at 22:44; Status DC Morphine Sulfate (Morphine Sulfate) 4 mg PRN Q4HRS PRN IV SEVERE PAIN Last administered on 02/01/19at 19:50; Start 01/31/19 at 22:45; Stop 02/01/19 at 22:44; Status DC Piperacillin Sod/ Tazobactam Sod 3.375 gm/Sodium Chloride 50 ml @ 100 mls/hr Q6HRS IV Last administered on 02/01/19at 05:55; Start 02/01/19 at 06:00; Stop 02/01/19 at 06:02; Status DC Vancomycin HCl 1.5 gm/Sodium Chloride 500 ml @ 250 mls/hr Q8H IV Last administered on 02/01/19at 08:31; Start 02/01/19 at 09:00; Stop 02/01/19 at 14:31; Status DC Vancomycin HCl (Vancomycin Trough Level) 1 each 1X ONCE MC ; Start 02/02/19 at 00:30; Stop 02/02/19 at 00:30; Status DC Enoxaparin Sodium (Lovenox 40mg Syringe) 40 mg Q24H SQ Last administered on 02/10/19at 16:27; Start 02/01/19 at 16:00 Pantoprazole Sodium (PROTONIX VIAL for IV PUSH) 40 mg DAILYAC IVP Last administered on 02/04/19at 08:25; Start 02/01/19 at 15:00; Stop 02/04/19 at 20:25; Status DC Morphine Sulfate (Morphine Sulfate) 4 mg PRN Q4HRS PRN IV SEVERE PAIN Last administered on 02/08/19at 10:59; Start 02/02/19 at 00:30 Piperacillin Sod/ Tazobactam Sod 3.375 gm/Sodium Chloride 50 ml @ 100 mls/hr Q6HRS IV Last administered on 5/7/19at 12:15; Start 02/02/19 at 12:00 Acetaminophen (Tylenol) 650 mg PRN Q6HRS PRN PO FEVER Last administered on 02/03/19at 19:56; Start 02/02/19 at 19:45 Labetalol HCl (Normodyne Iv Push) 10 mg PRN Q2HR PRN IVP HYPERTENSION, SEE COMMENTS Last administered on 02/02/19at 23:53; Start 02/02/19 at 23:30; Stop 02/03/19 at 13:48; Status DC Labetalol HCl (Normodyne Iv Push) 20 mg PRN Q2HR PRN IVP HYPERTENSION, 2ND CHOICE Last administered on 02/03/19at 17:33; Start 02/03/19 at 01:30; Stop 02/10/19 at 15:17; Status DC Hydralazine HCl (Apresoline Inj) 10 mg PRN Q4HRS PRN IVP ELEVATED BP, 1ST CHOICE Last administered on 02/06/19at 17:35; Start 02/03/19 at 01:30 Lisinopril (Prinivil) 10 mg DAILY PO Last administered on 02/04/19 08:26; Start 02/03/19 at 12:00; Stop 02/04/19 at 10:43; Status DC Lidocaine/Sodium Bicarbonate (Buffered Lidocaine 1%) 3 ml STK-MED ONCE .ROUTE ; Start 02/03/19 at 12:08; Stop 02/03/19 at 12:09; Status DC Midazolam HCl (Versed) 2 mg STK-MED ONCE .ROUTE ; Start 02/03/19 at 12:09; Stop 02/03/19 at 12:10; Status DC Fentanyl Citrate (Fentanyl 2ml Vial) 100 mcg STK-MED ONCE .ROUTE ; Start 02/03/19 at 12:10; Stop 02/03/19 at 12:11; Status DC Lidocaine/Sodium Bicarbonate (Buffered Lidocaine 1%) 3 ml 1X ONCE IJ Last administered on 02/03/19at 12:30; Start 02/03/19 at 12:30; Stop 02/03/19 at 12:31; Status DC Midazolam HCl (Versed) 2 mg 1X ONCE IV Last administered on 02/03/19at 12:30; Start 02/03/19 at 12:30; Stop 02/03/19 at 12:31; Status DC Fentanyl Citrate (Fentanyl 2ml Vial) 100 mcg 1X ONCE IV Last administered on 02/03/19 12:30; Start 02/03/19 at 12:30; Stop 02/03/19 at 12:31; Status DC Oxycodone/ Acetaminophen (Percocet 7.5/ 325) 1 tab PRN Q4HRS PRN PO SEVERE PAIN Last administered on 02/11/19 00:57; Start 02/03/19 at 13:45 Lactobacillus Rhamnosus (Culturelle) 1 cap BID PO Last administered on 02/11/19 09:20; Start 02/03/19 at 21:00 Linezolid/Dextrose 300 ml @ 300 mls/hr Q12HR IV Last administered on 02/07/19 10:12; Start 02/03/19 at 21:00; Stop 02/07/19 at 10:33; Status DC Nicotine (Nicoderm Cq 21mg) 1 patch PRN DAILY PRN TD SMOKING CESSATION Last administered on 02/07/19 20:28; Start 02/03/19 at 21:45 Pantoprazole Sodium (Protonix) 40 mg DAILYAC PO Last administered on 02/11/19 09:22; Start 02/05/19 at 07:30 Carvedilol (Coreg) 6.25 mg BIDWMEALS PO Last administered on 02/11/19 09:21; Start 02/05/19 at 08:30 Metoprolol Tartrate (Lopressor Vial) 5 mg PRN Q4HRS PRN IVP HYPERTENSION, SEE COMMENTS Last administered on 02/07/19 10:18; Start 02/07/19 at 08:30 Lisinopril (Prinivil) 5 mg DAILY PO Last administered on 02/11/19 09:22; Start 02/09/19 at 09:00 Lisinopril (Prinivil) 5 mg 1X ONCE PO Last administered on 02/08/19 20:23; Start 02/08/19 at 19:45; Stop 02/08/19 at 19:46; Status DC Iohexol (Omnipaque 300 Mg/ml) 75 ml 1X ONCE IV ; Start 02/09/19 at 13:00; Stop 02/09/19 at 13:01; Status DC Iohexol (Omnipaque 240 Mg/ml) 50 ml 1X ONCE PO ; Start 02/09/19 at 13:00; Stop 02/09/19 at 13:01; Status DC Info (CONTRAST GIVEN -- Rx MONITORING) 1 each PRN DAILY PRN MC SEE COMMENTS; Start 02/09/19 at 13:15; Stop 02/11/19 at 13:14; Status DC Gelatin (Gelfoam Size 12-7mm) 1 each STK-MED ONCE .ROUTE ; Start 02/10/19 at 14:34; Stop 02/10/19 at 14:35; Status DC Iohexol (Omnipaque 240 Mg/ml) 50 ml STK-MED ONCE .ROUTE ; Start 02/10/19 at 14:44; Stop 02/10/19 at 14:45; Status DC Active Scripts Active Ibuprofen 600 Mg Tablet 600 Mg PO PRN Q6HRS PRN Vital Signs Vital Signs Date Time Temp Pulse Resp B/P (MAP) Pulse Ox O2 Delivery O2 Flow Rate FiO2 02/11/19 11:00 98.1 97 16 149/49 (82) 96 Room Air 98.1 Labs Laboratory Tests Test 02/10/19 10:25 02/11/19 09:37 White Blood Count 13.6 x10^3/uL (4.0-11.0) 11.3 x10^3/uL (4.0-11.0) Red Blood Count 4.66 x10^6/uL (4.30-5.70) 4.54 x10^6/uL (4.30-5.70) Hemoglobin 12.9 g/dL (13.0-17.5) 12.8 g/dL (13.0-17.5) Hematocrit 39.2 % (39.0-53.0) 38.2 % (39.0-53.0) Mean Corpuscular Volume 84 fL (79-100) 84 fL (79-100) Mean Corpuscular Hemoglobin 28 pg (25-35) 28 pg (25-35) Mean Corpuscular Hemoglobin Concent 33 g/dL (31-37) 33 g/dL (31-37) Red Cell Distribution Width 15.1 % (11.5-14.5) 14.8 % (11.5-14.5) Platelet Count 530 x10^3/uL (140-400) 501 x10^3/uL (140-400) Neutrophils (%) (Auto) 82 % (31-73) 75 % (31-73) Lymphocytes (%) (Auto) 9 % (24-48) 13 % (24-48) Monocytes (%) (Auto) 6 % (0-9) 9 % (0-9) Eosinophils (%) (Auto) 2 % (0-3) 3 % (0-3) Basophils (%) (Auto) 0 % (0-3) 0 % (0-3) Neutrophils # (Auto) 11.3 x10^3uL (1.8-7.7) 8.5 x10^3uL (1.8-7.7) Lymphocytes # (Auto) 1.2 x10^3/uL (1.0-4.8) 1.4 x10^3/uL (1.0-4.8) Monocytes # (Auto) 0.9 x10^3/uL (0.0-1.1) 1.0 x10^3/uL (0.0-1.1) Eosinophils # (Auto) 0.2 x10^3/uL (0.0-0.7) 0.3 x10^3/uL (0.0-0.7) Basophils # (Auto) 0.0 x10^3/uL (0.0-0.2) 0.0 x10^3/uL (0.0-0.2) Sodium Level 134 mmol/L (136-145) 134 mmol/L (136-145) Potassium Level 4.2 mmol/L (3.5-5.1) 4.0 mmol/L (3.5-5.1) Chloride Level 98 mmol/L (98-107) 98 mmol/L (98-107) Carbon Dioxide Level 26 mmol/L (21-32) 25 mmol/L (21-32) Anion Gap 10 (6-14) 11 (6-14) Blood Urea Nitrogen 19 mg/dL (8-26) 20 mg/dL (8-26) Creatinine 1.3 mg/dL (0.7-1.3) 1.3 mg/dL (0.7-1.3) Estimated GFR (Cockcroft-Gault) 57.1 57.1 Glucose Level 137 mg/dL (70-99) 133 mg/dL (70-99) Calcium Level 9.0 mg/dL (8.5-10.1) 8.7 mg/dL (8.5-10.1) Erythrocyte Sedimentation Rate 71 (0-15) Laboratory Tests Test 02/11/19 09:37 White Blood Count 11.3 x10^3/uL (4.0-11.0) Red Blood Count 4.54 x10^6/uL (4.30-5.70) Hemoglobin 12.8 g/dL (13.0-17.5) Hematocrit 38.2 % (39.0-53.0) Mean Corpuscular Volume 84 fL (79-100) Mean Corpuscular Hemoglobin 28 pg (25-35) Mean Corpuscular Hemoglobin Concent 33 g/dL (31-37) Red Cell Distribution Width 14.8 % (11.5-14.5) Platelet Count 501 x10^3/uL (140-400) Neutrophils (%) (Auto) 75 % (31-73) Lymphocytes (%) (Auto) 13 % (24-48) Monocytes (%) (Auto) 9 % (0-9) Eosinophils (%) (Auto) 3 % (0-3) Basophils (%) (Auto) 0 % (0-3) Neutrophils # (Auto) 8.5 x10^3uL (1.8-7.7) Lymphocytes # (Auto) 1.4 x10^3/uL (1.0-4.8) Monocytes # (Auto) 1.0 x10^3/uL (0.0-1.1) Eosinophils # (Auto) 0.3 x10^3/uL (0.0-0.7) Basophils # (Auto) 0.0 x10^3/uL (0.0-0.2) Erythrocyte Sedimentation Rate 71 (0-15) Sodium Level 134 mmol/L (136-145) Potassium Level 4.0 mmol/L (3.5-5.1) Chloride Level 98 mmol/L (98-107) Carbon Dioxide Level 25 mmol/L (21-32) Anion Gap 11 (6-14) Blood Urea Nitrogen 20 mg/dL (8-26) Creatinine 1.3 mg/dL (0.7-1.3) Estimated GFR (Cockcroft-Gault) 57.1 Glucose Level 133 mg/dL (70-99) Calcium Level 8.7 mg/dL (8.5-10.1) Allergies Allergies Coded Allergies Type Severity Reaction Last Updated Verified No Known Drug Allergies 06/14/14 No Disposition/Orders: D/C to Home Patient Instructions D/C PLANNING 35 MIN SUNDAR COBB MD February 11, 2019 15:10
[2019-02-11] MEDS ORDERED: LISI-338 PO (15:13)
[2019-02-11] MEDS ORDERED: Pantoprazole PO (15:13)
[2019-02-11] MEDS ORDERED: CARV6.2511 PO (15:13)
[2019-02-11] MEDS ORDERED: LACT1CAP19 PO (15:13)
[2019-02-11] MEDS ORDERED: AMOX1TAB58 PO (15:13)
--- NOTE | 2019-02-11 15:16 | DISCH ---
DISCHARGE INSTRUCTIONS Condition on Discharge Condition on Discharge: Stable Activity After Discharge Activity Instructions for Disc: No restrictions Lifting Instructions after Dis: No heavy lifting, No pulling or pushing Exercise Instruction after Dis: Walk 10 min, 3 x per day Driving Instructions after Dis: Do not drive Diet after Discharge Diet after Discharge: Regular Diet Texture: Regular Liquid Texture: Thin Liquid Swallowing Supervision: None needed Checks after Discharge Checks after discharge: Check blood press - daily Contacting the DR. after DC Call your doctor for: If your condition worsens SUNDAR COBB MD February 11, 2019 15:16
--- NOTE | 2019-02-11 15:54 | NUR ---
Pt. discharged to home with Rx, verbalized understanding of discharge instructions and drain care for home. Pt sent with drain care supplies.
[2019-03-14] MEDS ORDERED: ASPI81TA50 PO (07:30)
== END 2019-02-11 15:55 | disposition home or self-care (01) | DRG 871 ==
LOC: ER 19:39 → 6 SOUTH 23:05 → 4 NORTH 02-06 10:19
PROVIDERS: ADMIT Internal Medicine; ATTEND Internal Medicine
PROC: 0W9J30Z Drainage of Pelvic Cavity with Drainage Device, Percutaneous Approach (ICD-10-PCS; principal; 2019-02-03)
PROC: BW111ZZ Fluoroscopy of Abdomen and Pelvis using Low Osmolar Contrast (ICD-10-PCS; 2019-02-10)
DX: A41.9 Sepsis, unspecified organism (principal); K65.1 Peritoneal abscess; K57.20 Diverticulitis of large intestine with perforation and abscess without bleeding; N13.30 Unspecified hydronephrosis; N17.9 Acute kidney failure, unspecified; F15.10 Other stimulant abuse, uncomplicated; F17.210 Nicotine dependence, cigarettes, uncomplicated; I10 Essential (primary) hypertension; I49.3 Ventricular premature depolarization; Z83.3 Family history of diabetes mellitus; Z90.49 Acquired absence of other specified parts of digestive tract; F32.9 Major depressive disorder, single episode, unspecified; M19.90 Unspecified osteoarthritis, unspecified site; Z59.0 Homelessness; Z79.899 Other long term (current) drug therapy
CPT/HCPCS: 36415; 49406; 49424; 74176; 74177; 80048; 80053; 80307; 81001; 83605; 83690; 83735; 85007; 85025; 85651; 87040; 87071; 87075; 87086; 87186; 93306; 96361; 96365; 96367; 96375; 99152; 99153; A4215; C1729; C1894; C9113; G0480; J0360; J1650; J2020; J2250; J2270; J2405; J2543; J3010; J3370; J3490; J7030; J7040; 99285-25

== ENCOUNTER 2019-02-24 09:05 | Emergency (ER) | payer SELFPAY ==
[~2019-02-24] VITALS: Ht 195.6 cm; Wt 107.5 kg
[~2019-02-24 09:05] MED LIST changes: +AMOX1TAB58 PO; +CARV6.2511 PO; +LACT1CAP19 PO; +LISI-338 PO; +Pantoprazole PO
[2019-02-24 10:05] LABS: BASO % 1 % (0-3); EOS # 0.3 x10^3/uL (0.0-0.7); EOS % 3 % (0-3); HEMATOCRIT 34.7 % (39.0-53.0); HEMOGLOBIN 11.6 g/dL (13.0-17.5); LYMPH # 1.3 x10^3/uL (1.0-4.8); LYMPH % 15 % (24-48); MEAN CORPUSCULAR HEMOGLOBIN 28 pg (25-35); MEAN CORPUSCULAR HGB CONC 34 g/dL (31-37); MEAN CORPUSCULAR VOLUME 84 fL (79-100); MONO % 11 % (0-9); NEUT # 6.5 x10^3uL (1.8-7.7); NEUT % 71 % (31-73); PLATELET COUNT 253 x10^3/uL (140-400); RED BLOOD COUNT 4.13 x10^6/uL (4.30-5.70); RED CELL DISTRIBUTION WIDTH 14.7 % (11.5-14.5); WHITE BLOOD COUNT 9.2 x10^3/uL (4.0-11.0)
[2019-02-24 10:14] LABS: CREATININE 1.3 mg/dL (0.7-1.3); GFR 56.9; POTASSIUM 4.3 mmol/L (3.5-5.1)
[2019-02-24 10:21] LABS: ALBUMIN 2.7 g/dL (3.4-5.0); ALBUMIN/GLOBULIN RATIO 0.6 (1.0-1.7); TOTAL BILIRUBIN 0.9 mg/dL (0.2-1.0); TOTAL PROTEIN 7.1 g/dL (6.4-8.2)
[2019-02-24] MEDS ORDERED: IOHEXOL 300 MG/ML 100ML VIAL. IV ONE (10:30)
[2019-02-24] MEDS ORDERED: CONTRAST GIVEN. MC PRN (10:30)
--- NOTE | 2019-02-24 11:21 | RAD ---
CT of the abdomen and pelvis without contrast, 02/24/2019: HISTORY: Follow-up retroperitoneal abscess Noncontrast scans were obtained as requested and compared to a exam from 02/09/2019. There is minimal streaky atelectasis or scarring posteriorly in the lung bases. The unopacified liver is unremarkable. No gallbladder abnormality is seen. The pancreas is unremarkable. The spleen is of normal size. There is mild unchanged prominence of the left renal pelvis and proximal left ureter, likely related to the left upper pelvic retroperitoneal inflammatory process. The right kidney is unremarkable. The pigtail abscess drain is unchanged in position extending into the the upper pelvis just to the left of midline along the medial aspect of the iliac vessels. The previously seen collection of fluid and gas at this level has decreased in size. There is soft tissue thickening related to the pigtail loop. No significant residual drainable fluid is seen. There are residual tiny bubbles of gas at the level the pigtail loop and extending a short distance inferiorly. There is adjacent streaky increased density in the fat compatible with inflammation. This inflammatory process is centered superior to the level the sigmoid colon. Multiple sigmoid diverticula are present. There is a suggestion of sigmoid mural thickening, although not clearly defined due to lack of colonic distention or intraluminal contrast. The colon is not dilated. No free fluid is identified in the abdomen or pelvis. Small fat-containing umbilical and supraumbilical hernias are again noted. IMPRESSION: 1. The left pelvic abscess drain remains in place with further interval regression of that drained fluid collection. There is only mild residual soft tissue thickening, streaky inflammation and several small air bubbles. 2. Mild unchanged prominence of the left renal pelvis and proximal left ureter. 3. Colonic diverticulosis. PQRS Compliance Statement: One or more of the following individualized dose reduction techniques were utilized for this examination: 1. Automated exposure control 2. Adjustment of the mA and/or kV according to patient size 3. Use of iterative reconstruction technique Electronically signed by: Greg Posada MD (02/24/2019 11:18 AM) [facility]
[2019-02-24 11:58] VITALS: BP 158/92
--- NOTE | 2019-02-24 14:06 | PHYS DOC ---
Past Medical History Past Medical History: No Pertinent History Past Surgical History: Appendectomy, Tonsillectomy, Other Additional Past Surgical Histo: PELVIC ABSCESS Alcohol Use: None Drug Use: None Adult General Chief Complaint Chief Complaint: POST-OP PROBLEM HPI HPI Patient is a 59 year old male presented with 2 problem he had an IR to placement of a sigmoid perforated diverticulum a couple weeks back he was doing well and then for the last 7 days it stopped draining he was having increasing lower abdominal pain and then last night all of a sudden it started to drain again he thinks it might have been kinked 75 MLS came out, dark thick material and now he is feeling much much better again currently no pain no fever he called surgery clinic who asked him to come to the emergency room for evaluation. He does not know when his tube is supposed to come out Review of Systems Review of Systems Constitutional: Denies fever or chills [] Eyes: Denies change in visual acuity, redness, or eye pain [] HENT: Denies nasal congestion or sore throat [] Respiratory: Denies cough or shortness of breath [] Musculoskeletal: Endocrine: Denies polyuria or polydipsia [] All other systems were reviewed and found to be within normal limits, except as documented in this note. Current Medications Current Medications Current Medications Medications (Trade) Dose Ordered Sig/Juwan Start Time Stop Time Status Last Admin Dose Admin Info (CONTRAST GIVEN -- Rx MONITORING) 1 each PRN DAILY PRN 02/24/19 10:30 02/24/19 12:18 DC Iohexol (Omnipaque 300 Mg/ml) 60 ml 1X ONCE 02/24/19 10:30 02/24/19 10:31 DC Allergies Allergies Allergies Coded Allergies Type Severity Reaction Last Updated Verified No Known Drug Allergies 06/14/14 No Physical Exam Physical Exam Constitutional: Well developed, well nourished, no acute distress, non-toxic appearance. [] HENT: Normocephalic, atraumatic, bilateral external ears normal, oropharynx moist, no oral exudates, nose normal. [] Eyes: PERRLA, EOMI, conjunctiva normal, no discharge. [] Neck: Normal range of motion, no tenderness, supple, no stridor. [] Cardiovascular:Heart rate regular rhythm, no murmur [] Lungs & Thorax: Bilateral breath sounds clear to auscultation [] Abdomen: Bowel sounds normal, soft, no tenderness, no masses, no pulsatile masses. [] Abdomen is really not tender. There is a HUMA drain in place near the umbilicus draining currently there is about 30 mL some sort of thick reddish material Skin: Warm, dry, no erythema, no rash. [] Back: No tenderness, no CVA tenderness. [] Extremities: No tenderness, no cyanosis, no clubbing, ROM intact, no edema. [] Neurologic: Alert and oriented X 3, normal motor function, normal sensory function, no focal deficits noted. [] Psychologic: Affect normal, judgement normal, mood normal. [] Current Patient Data Vital Signs Vital Signs Date Time Temp Pulse Resp B/P (MAP) Pulse Ox O2 Delivery O2 Flow Rate FiO2 02/24/19 11:58 70 158/92 (114) 98 Room Air 02/24/19 09:20 98.0 18 98.0 Lab Values Laboratory Tests Test 02/24/19 09:54 White Blood Count 9.2 x10^3/uL (4.0-11.0) Red Blood Count 4.13 x10^6/uL (4.30-5.70) L Hemoglobin 11.6 g/dL (13.0-17.5) L Hematocrit 34.7 % (39.0-53.0) L Mean Corpuscular Volume 84 fL (79-100) Mean Corpuscular Hemoglobin 28 pg (25-35) Mean Corpuscular Hemoglobin Concent 34 g/dL (31-37) Red Cell Distribution Width 14.7 % (11.5-14.5) H Platelet Count 253 x10^3/uL (140-400) Neutrophils (%) (Auto) 71 % (31-73) Lymphocytes (%) (Auto) 15 % (24-48) L Monocytes (%) (Auto) 11 % (0-9) H Eosinophils (%) (Auto) 3 % (0-3) Basophils (%) (Auto) 1 % (0-3) Neutrophils # (Auto) 6.5 x10^3uL (1.8-7.7) Lymphocytes # (Auto) 1.3 x10^3/uL (1.0-4.8) Monocytes # (Auto) 1.0 x10^3/uL (0.0-1.1) Eosinophils # (Auto) 0.3 x10^3/uL (0.0-0.7) Basophils # (Auto) 0.0 x10^3/uL (0.0-0.2) Sodium Level 138 mmol/L (136-145) Potassium Level 4.3 mmol/L (3.5-5.1) Chloride Level 103 mmol/L (98-107) Carbon Dioxide Level 23 mmol/L (21-32) Anion Gap 12 (6-14) Blood Urea Nitrogen 22 mg/dL (8-26) Creatinine 1.3 mg/dL (0.7-1.3) Estimated GFR (Cockcroft-Gault) 56.9 BUN/Creatinine Ratio 17 (6-20) Glucose Level 141 mg/dL (70-99) H Calcium Level 9.0 mg/dL (8.5-10.1) Total Bilirubin 0.9 mg/dL (0.2-1.0) Aspartate Amino Transferase (AST) 17 U/L (15-37) Alanine Aminotransferase (ALT) 33 U/L (16-63) Alkaline Phosphatase 125 U/L (46-116) H Total Protein 7.1 g/dL (6.4-8.2) Albumin 2.7 g/dL (3.4-5.0) L Albumin/Globulin Ratio 0.6 (1.0-1.7) L Laboratory Tests 02/24/19 09:54 Laboratory Tests 02/24/19 09:54 EKG EKG [] Radiology/Procedures Radiology/Procedures [] Impressions: IMPRESSION: 1. The left pelvic abscess drain remains in place with further interval regression of that drained fluid collection. There is only mild residual soft tissue thickening, streaky inflammation and several small air bubbles. 2. Mild unchanged prominence of the left renal pelvis and proximal left ureter. 3. Colonic diverticulosis. PQRS Compliance Statement: One or more of the following individualized dose reduction techniques were utilized for this examination: 1. Automated exposure control 2. Adjustment of the mA and/or kV according to patient size 3. Use of iterative reconstruction technique Electronically signed by: Greg Posada MD (02/24/2019 11:18 AM) [facility] Course & Med Decision Making Course & Med Decision Making Pertinent Labs and Imaging studies reviewed. (See chart for details) []I spoke with Dr. YAN we talked about the case abdominal CT actually looks much better both agree sounds like safe for outpatient management. Follow-up in surgery clinic for reevaluation in about a week I told the patient who is in agreement OF NOTE, wbc normal, pt is on last day of antibiotics. i think given improved ct okay to let huim finish current course and f/u wtih surgery in the next weeek. Dragon Disclaimer Dragon Disclaimer This electronic medical record was generated, in whole or in part, using a voice recognition dictation system. Departure Departure Impression: Primary Impression: Abdominal pain Disposition: 01 HOME, SELF-CARE Condition: STABLE Referrals: AMELIA YAN MD Additional Instructions: Thank you for coming to the ER. Your fluid collection looks much better please call Dr. yan tomorrow for a follow-up appointment within 1 week TERESITA ARREOLA MD February 24, 2019 14:06
[2019-03-14] MEDS ORDERED: ASPI81TA50 PO (07:30)
== END 2019-02-24 12:18 | disposition home or self-care (01) ==
LOC: ER 09:05
DX: G89.18 Other acute postprocedural pain (principal); R10.30 Lower abdominal pain, unspecified; Z90.89 Acquired absence of other organs
CPT/HCPCS: 36415; 74176; 80053; 85025; 99285-25